=== PATIENT | male | born 1945 | race Caucasian/White ===

== ENCOUNTER → 2017-02-05 | Outpatient (CLI) | payer OTHER, MEDICARE ==
[2017-02-05 12:16] LABS: HEMATOCRIT 49.4 % (37.9-51.0); HEMOGLOBIN 17.6 g/dL (13.5-17.0); HGB HCT DIFFERENCE 3.4; MEAN CORPUSCULAR HEMOGLOBIN 35.1 pg (27.0-33.4); MEAN CORPUSCULAR HGB CONC 35.7 g/dL (32.0-36.0); MEAN CORPUSCULAR VOLUME 98 fl (80-97); RED BLOOD COUNT 5.02 10^6/uL (4.35-5.55); RED CELL DISTRIBUTION WIDTH 13.1 % (11.5-14.0); WHITE BLOOD COUNT 7.6 10^3/uL (4.0-10.5)
[2017-02-05 12:36] LABS: ERYTHROCYTE SEDIMENTATION RATE 4 mm/hr (0-20)
[2017-02-05 13:12] LABS: BAND NEUTROPHILS % (MANUAL) 3 % (3-5); BASOPHILS % (MANUAL) 0 % (0-2); EOSINOPHILS % (MANUAL) 0 % (0-6); LYMPHOCYTES % (MANUAL) 12 % (13-45); TOTAL CELLS COUNTED 100
[2017-02-05 13:17] LABS: PLATELET CLUMPS PRESENT
[2017-02-05 13:18] LABS: POLYCHROMASIA SLIGHT; TEAR DROP CELLS SLIGHT
[2017-02-05 13:19] LABS: POIKILOCYTOSIS SLIGHT; TOXIC VACUOLATION PRESENT
[2017-02-05 13:20] LABS: TARGET CELLS SLIGHT
== END ==
LOC: LAB 11:36
PROVIDERS: ATTEND Orthopaedic Surgery
DX: M25.512 Pain in left shoulder (principal); Z96.611 Presence of right artificial shoulder joint
CPT/HCPCS: 36415; 85025; 85652; 86140

== ENCOUNTER 2017-10-04 08:30 | Inpatient (IN) | payer OTHER, MEDICARE ==
[2017-10-04] MEDS ORDERED: ASPIRIN 81 MG TABLET, CHEWABLE PO ONE ×2 (08:40→19:00)
[2017-10-04] MEDS ORDERED: IPRATROPIUM/ALBUTEROL 0.5-2.5 MG/3 ML AMPUL NEB ONE (08:41)
[2017-10-04] MEDS ORDERED: MAGNESIUM SULFATE/D5W 1 GM/100 ML RTUPB IV ONE ×2 (08:42→08:57)
[2017-10-04] MEDS ORDERED: DILTIAZEM HCL INJ 25 MG/5 ML VIAL IV ONE ×3 (08:51→11:03)
[2017-10-04 08:56] LABS: ABSOLUTE EOSINOPHILS # (AUTO) 0.1 10^3/uL (0.0-0.6); ABSOLUTE LYMPHOCYTES (AUTO) 1.1 10^3/uL (0.5-4.7); ABSOLUTE MONOCYTES (AUTO) 1.4 10^3/uL (0.1-1.4); BASOPHILS % (AUTO) 0.5 % (0-2); EOSINOPHILS % (AUTO) 1.2 % (0-6); HEMATOCRIT 54.8 % (37.9-51.0); HEMOGLOBIN 19.1 g/dL (13.5-17.0); LYMPHOCYTES % (AUTO) 14.1 % (13-45); MEAN CORPUSCULAR HEMOGLOBIN 35.7 pg (27.0-33.4); MEAN CORPUSCULAR HGB CONC 34.9 g/dL (32.0-36.0); MEAN CORPUSCULAR VOLUME 102 fl (80-97); MONOCYTES % (AUTO) 18.5 % (3-13); PLATELET COUNT 207 10^3/uL (150-450); RED BLOOD COUNT 5.36 10^6/uL (4.35-5.55); RED CELL DISTRIBUTION WIDTH 13.8 % (11.5-14.0); SEGMENTED NEUTROPHILS % (AUTO) 65.7 % (42-78); TOTAL CELLS COUNTED % (AUTO) 100 %; WHITE BLOOD COUNT 7.7 10^3/uL (4.0-10.5)
[2017-10-04] MEDS ORDERED: ALBUTEROL SULFATE 0.083% NEB 2.5 MG/3 ML AMPUL NEB ONE (08:56)
[2017-10-04] MEDS ORDERED: METHYLPREDNISOLONE INJ 125 MG/2 ML SDV IV ONE (08:56)
--- NOTE | 2017-10-04 09:15 | RADIOLOGY REPORT (SQ) ---
EXAM DESCRIPTION: CHEST SINGLE VIEW COMPLETED DATE/TIME: 10/04/2017 8:51 am REASON FOR STUDY: sob COMPARISON: None. EXAM PARAMETERS: NUMBER OF VIEWS: One view. TECHNIQUE: Single frontal radiographic view of the chest acquired. RADIATION DOSE: NA LIMITATIONS: None. FINDINGS: LUNGS AND PLEURA: No opacities, masses or pneumothorax. No pleural effusion. MEDIASTINUM AND HILAR STRUCTURES: No masses. Contour normal. HEART AND VASCULAR STRUCTURES: Heart normal in size. Normal vasculature. BONES: No acute findings. HARDWARE: None in the chest. OTHER: No other significant finding. IMPRESSION: NO ACUTE RADIOGRAPHIC FINDING IN THE CHEST. TECHNICAL DOCUMENTATION: JOB ID: [id number] [employer]- All Rights Reserved Reading location - IP/workstation name: [email or web address]
[2017-10-04 09:17] LABS: ALANINE AMINOTRANSFERASE 28 U/L (21-72); ALBUMIN 4.9 g/dL (3.5-5.0); ALKALINE PHOSPHATASE 58 U/L (38-126); ANION GAP 15 (5-19); ASPARTATE AMINO TRANSFERASE 40 U/L (17-59); BILIRUBIN,DIRECT 0.5 mg/dL (0.0-0.4); BILIRUBIN,TOTAL 1.1 mg/dL (0.2-1.3); BLOOD UREA NITROGEN 28 mg/dL (7-20); CALCIUM 10.3 mg/dL (8.4-10.2); CARBON DIOXIDE 30 mmol/L (22-30); CHLORIDE 106 mmol/L (98-107); CREATINE KINASE 143 U/L (55-170); GLUCOSE 121 mg/dL (75-110); POTASSIUM 4.5 mmol/L (3.6-5.0); SODIUM 150.9 mmol/L (137-145); TOTAL PROTEIN 8.4 g/dL (6.3-8.2)
[2017-10-04 09:18] LABS: INTERNATIONAL RATION (INR) 0.93; PROTHROMBIN TIME 12.9 SEC (11.4-15.4)
[2017-10-04 09:18] LABS: VENOUS BLOOD BASE EXCESS -0.4 mmol/L; VENOUS BLOOD HCO3 26.9 mmol/L (20-32); VENOUS BLOOD PCO2 52.7 mmHg (35-63); VENOUS BLOOD PH 7.33 (7.30-7.42)
[2017-10-04 09:30] LABS: CREATINE KINASE MB 4.41 ng/mL (<4.55); TROPONIN I 0.022 ng/mL
[2017-10-04] MEDS ORDERED: NORMAL SALINE 1000 ML 1,000 ML IV ONE ×2 (09:32→11:04)
[2017-10-04] MEDS: DILTIAZEM HCL/D5W 125 MG/125 ML RTUINJ IV PRN ×3 (09:38→17:01)
[2017-10-04] MEDS ORDERED: DIGOXIN INJ 0.5 MG/2 ML AMPULE IV ONE (11:03)
[2017-10-04] MEDS: ENOXAPARIN SODIUM INJ 100 MG/1 ML DISP.SYRIN SUBCUT SCH (11:34)
[2017-10-04] MEDS ORDERED: ONDANSETRON HCL INJ/PF 4 MG/2 ML SDV IV PRN (12:56)
[2017-10-04] MEDS ORDERED: ACETAMINOPHEN 325 MG TABLET PO PRN (12:56)
[2017-10-04] MEDS: METHYLPREDNISOLONE INJ 40 MG/1 ML SDV IV SCH ×2 (13:55→22:33)
--- NOTE | 2017-10-04 14:21 | ER Document Report ---
ED General - General Chief Complaint: Breathing Difficulty Stated Complaint: BREATHING PROBLEMS Time Seen by Provider: 10/04/17 08:42 TRAVEL OUTSIDE OF THE [place] IN LAST 30 DAYS: No - HPI Patient complains to provider of: Difficulty breathing Notes: Patient coming in for evaluation difficulty breathing. Patient states he does have a history of COPD does continue to smoke. Patient upon being triage was found to have a heart rate in the 20s. Although I do believe this is anomalous is that we brought the patient back to the trauma bay place him on a monitor was found to be in A. fib with RVR with a heart rate greater than 130 fasting around 130-150. Patient denies any pain as approximately 2-3 word dyspnea therefore HPI is otherwise limited at this time. Patient does have a medication list showing metoprolol for blood control also multiple inhalers. Denies cough denies fever denies any sputum production. Denies nausea vomiting chest pain abdominal pain - Related Data Allergies/Adverse Reactions: No Known Allergies Allergy (Verified 10/04/17 08:31) Past Medical History - Social History Smoking Status: Former Smoker Chew tobacco use (# tins/day): No Frequency of alcohol use: Occasional Drug Abuse: None Family History: Reviewed & Not Pertinent Patient has suicidal ideation: No Patient has homicidal ideation: No - Past Medical History Cardiac Medical History: Reports: Hx Hypertension Pulmonary Medical History: Reports: Hx COPD Renal/ Medical History: Denies: Hx Peritoneal Dialysis Past Surgical History: Reports: Hx Orthopedic Surgery - bilateral hip. right shoulder Review of Systems - Review of Systems Constitutional: No symptoms reported EENT: No symptoms reported Cardiovascular: No symptoms reported Respiratory: Short of breath, Wheezing Gastrointestinal: No symptoms reported Genitourinary: No symptoms reported Male Genitourinary: No symptoms reported Musculoskeletal: No symptoms reported Skin: No symptoms reported Hematologic/Lymphatic: No symptoms reported Neurological/Psychological: No symptoms reported -: Yes All other systems reviewed and negative Physical Exam - Vital signs Vitals: Temp Pulse Resp BP Pulse Ox 98.1 F 29 L 32 H 163/112 H 92 10/04/17 08:35 10/04/17 08:35 10/04/17 08:35 10/04/17 08:35 10/04/17 08:35 Interpretation: Tachycardic, Tachypneic - General General appearance: Appears well, Alert - HEENT Head: Normocephalic, Atraumatic Eyes: Normal Pupils: PERRL - Respiratory Respiratory status: Tachypnea Chest status: Nontender Breath sounds: Rhonchi, Wheezing - Cardiovascular Rhythm: Irregularly irregular Heart sounds: Normal auscultation Murmur: No - Abdominal Inspection: Normal Distension: No distension Bowel sounds: Normal Tenderness: Nontender Organomegaly: No organomegaly - Back Back: Normal, Nontender - Extremities General upper extremity: Normal inspection, Nontender, Normal color, Normal ROM , Normal temperature General lower extremity: Normal inspection, Nontender, Normal color, Normal ROM , Normal temperature, Normal weight bearing. No: Tomas's sign - Neurological Neuro grossly intact: Yes Cognition: Normal Orientation: AAOx4 Vimal Coma Scale Eye Opening: Spontaneous Vimal Coma Scale Verbal: Oriented Vimal Coma Scale Motor: Obeys Commands [place] Coma Scale Total: 15 Speech: Normal Motor strength normal: LUE, RUE, LLE, RLE Sensory: Normal - Psychological Associated symptoms: Normal affect, Normal mood - Skin Skin Temperature: Warm Skin Moisture: Dry Skin Color: Normal Course - Re-evaluation Re-evalutation: 10/04/17 15:24 Patient coming in with difficulty in breathing coarse wheezes with no improvement after initial breathing treatment therefore was placed on BiPAP for his tachypnea after BiPAP and multiple rounds of nebs magnesium patient able to speak in full sentences continues to deny any chest pain denies any history of CHF. Heart rate was difficult to decrease as that we also given the patient albuterol treatments at the same time however placing the patient on Cardizem drip along with digoxin did help control his rate. Patient is also given a loading dose of Lovenox. No signs of infection at this time. Patient feeling much better after BiPAP. Patient case was discussed with the hospitalist service patient was admitted for further evaluation - Vital Signs Vital signs: Temp Pulse Resp BP Pulse Ox 98.1 F 29 L 21 H 143/81 H 98 10/04/17 08:36 10/04/17 08:36 10/04/17 14:05 10/04/17 14:05 10/04/17 14:05 - Laboratory Result Diagrams: 10/04/17 08:45 10/04/17 08:45 Laboratory results interpreted by me: 10/04/17 10/04/17 08:45 08:45 Hgb 19.1 H Hct 54.8 H MCV 102 H MCH 35.7 H Monocytes % 18.5 H Sodium 150.9 H BUN 28 H Glucose 121 H Calcium 10.3 H Direct Bilirubin 0.5 H Total Protein 8.4 H Critical Care Note - Critical Care Note Total time excluding time spent on procedures (mins): 35 Comments: Patient coming of her story failure requiring BiPAP also A. fib with RVR and time spent managing drips Discharge - Discharge Clinical Impression: Atrial fibrillation with RVR, COPD exacerbation, Respiratory distress Condition: Good Disposition: ADMITTED INPATIENT Admitting Provider: Hospitalist - wai/maninder Unit Admitted: [facility]
[2017-10-04] MEDS: IPRATROPIUM/ALBUTEROL 0.5-2.5 MG/3 ML AMPUL NEB SCH ×2 (14:30→20:04)
[2017-10-04] MEDS ORDERED: IPRATROPIUM BROMIDE 0.02% NEB 0.5 MG/2.5 ML AMPUL NEB PRN (16:49)
[2017-10-04] MEDS ORDERED: IPRATROPIUM/ALBUTEROL 0.5-2.5 MG/3 ML AMPUL NEB PRN (16:53)
--- NOTE | 2017-10-04 17:26 | PDOC H&P ---
History of Present Illness Admission Date/PCP: 10/04/17 14:54 Leonardo TROTTER MD Patient complains of: shortness of breath History of Present Illness: LUCIO DYER JR is a 72 year old male with increased shortness of breath since Wednesday. His past medical history is significant for underlying COPD. He has known hypertension and has an abdominal aortic aneurysm that is being followed as an outpatient. He has COPD for which he requires oxygen at night. He follows with pulmonology and [place]. The patient states that last Wednesday he felt like he was developing a sinus infection with significant sinus congestion and drainage. He later developed a cough. He was seen at a local urgent care and placed on a prednisone taper as well as a Z-Yoel. In spite of this he continued to worsen and his shortness of breath became so severe that he presented to the emergency room. In the emergency room he was found to be in atrial fibrillation with a rapid rate. He was referred for admission. Chest x-ray did not reveal an underlying pneumonia. He was found to have a sodium level of 150.9. Creatinine was normal. He has hypercalcemia as well as an elevated hemoglobin. Past Medical History Cardiac Medical History: Reports: Hypertension Denies: Atrial Fibrillation, Congestive Heart Failure, Coronary Artery Disease Pulmonary Medical History: Reports: Chronic Obstructive Pulmonary Disease (COPD) EENT Medical History: Reports: None Neurological Medical History: Reports: None Endocrine Medical History: Denies: Diabetes Mellitus Type 1 Renal/ Medical History: Denies: Chronic Kidney Disease Malignancy Medical History: Reports: None GI Medical History: Reports: None Musculoskeltal Medical History: Reports: None Skin Medical History: Reports: None Psychiatric Medical History: Denies: Alcohol Dependency, Substance Abuse Traumatic Medical History: Reports: None Hematology: Reports: None Infectious Medical History: Reports: None Past Surgical History Past Surgical History: Reports: Orthopedic Surgery - bilateral hip. right shoulder, Other - Penile implant Social History Information Source: Patient Lives with: Alone Smoking Status: Former Smoker Frequency of Alcohol Use: Rare Hx Recreational Drug Use: No Hx Prescription Drug Abuse: No - Advance Directive Resuscitation Status: Full Code Surrogate healthcare decision maker:: The patient's son is his surrogate decision maker Henrique Dyer Family History Family History: Reviewed & Not Pertinent Parental Family History Reviewed: Yes Children Family History Reviewed: Yes Sibling(s) Family History Reviewed.: Yes Medication/Allergy Home Medications: Albuterol Sulfate [Proventil Hfa] 2 puff IH Q6HP PRN 10/04/17 Albuterol Sulfate [Ventolin 0.083% Neb 2.5 mg/3 ml Ampul] 1 vial NEB RTQ6HP PRN 10/04/17 Aspirin [Aspirin 81 mg Chewable Tablet] 81 mg PO DAILY 10/04/17 Cholecalciferol (Vitamin D3) [Vitamin D3 1000 unit Chewable Tablet] 1,000 unit PO DAILY 10/04/17 Fluticasone Propionate [Flonase Nasal Allen 50 Mcg/Allen 16 gm] 1 spray NAREB Q12 10/04/17 Metoprolol Tartrate [Lopressor 50 mg Tablet] 50 mg PO DAILY 10/04/17 Mometasone Furoate [Nasonex] 2 sprays NAREB DAILY 10/04/17 Mometasone/Formoterol [Dulera 200 Mcg/5 Mcg Inhaler] 2 puff IH Q12 10/04/17 Tiotropium [place] [Spiriva Handihaler 5 Cap/Kit (18 Mcg/Cap)] 1 cap IH DAILY Zolpidem Tartrate [Ambien] 10 mg PO HSP PRN 10/04/17 Allergies/Adverse Reactions: No Known Allergies Allergy (Verified 10/04/17 08:31) Review of Systems Constitutional: PRESENT: as per HPI. ABSENT: fever(s), headache(s), night sweats, weight gain, weight loss Eyes: ABSENT: visual disturbances Ears: ABSENT: hearing changes Nose, Mouth, and Throat: ABSENT: headache(s), vertigo Cardiovascular: PRESENT: dyspnea on exertion, orthropnea, palpitations. ABSENT : chest pain Respiratory: PRESENT: cough, dyspnea. ABSENT: hemoptysis, sputum Gastrointestinal: ABSENT: abdominal pain, constipation, diarrhea, hematemesis, hematochezia, nausea, vomiting Genitourinary: PRESENT: as per HPI Musculoskeletal: ABSENT: joint swelling Integumentary: ABSENT: rash, wounds Neurological: ABSENT: abnormal gait, abnormal speech, confusion, dizziness, focal weakness, syncope Psychiatric: ABSENT: anxiety, depression, homidical ideation, suicidal ideation Endocrine: ABSENT: cold intolerance, heat intolerance, polydipsia, polyuria Hematologic/Lymphatic: ABSENT: easy bleeding, easy bruising Physical Exam Vital Signs: Temp Pulse Resp BP Pulse Ox 98.1 F 29 L 24 H 147/94 H 92 10/04/17 08:36 10/04/17 08:36 10/04/17 16:16 10/04/17 16:01 10/04/17 16:16 General appearance: PRESENT: well-developed, well-nourished, other - The patient is requiring BiPAP. He is in no acute distress Head exam: PRESENT: atraumatic, normocephalic Eye exam: PRESENT: conjunctiva pink, EOMI, PERRLA. ABSENT: scleral icterus Ear exam: PRESENT: normal external ear exam Mouth exam: PRESENT: dry mucosa, tongue midline Neck exam: ABSENT: carotid bruit, JVD, lymphadenopathy, thyromegaly Respiratory exam: PRESENT: other - He seems to be diminished in the lower bases. This was an anterior exam due to the fact that he is on BiPAP and not ideal. ABSENT: rales, rhonchi, wheezes Cardiovascular exam: PRESENT: irregular rhythm, tachycardia Pulses: PRESENT: normal dorsalis pedis pul GI/Abdominal exam: PRESENT: normal bowel sounds, soft. ABSENT: distended, guarding, mass, organolmegaly, rebound, tenderness Rectal exam: PRESENT: deferred Extremities exam: PRESENT: full ROM. ABSENT: calf tenderness, clubbing, pedal edema Musculoskeletal exam: PRESENT: ambulatory Neurological exam: PRESENT: alert, awake, oriented to person, oriented to place , oriented to time, oriented to situation, CN II-XII grossly intact. ABSENT: motor sensory deficit Psychiatric exam: PRESENT: appropriate affect, normal mood. ABSENT: homicidal ideation, suicidal ideation Skin exam: PRESENT: dry, intact, warm. ABSENT: cyanosis, rash Results Impressions: Chest X-Ray 10/04/17 08:40 IMPRESSION: NO ACUTE RADIOGRAPHIC FINDING IN THE CHEST. Assessment & Plan - Diagnosis (1) Acute and chronic respiratory failure Is this a current diagnosis for this admission?: Yes Plan: Currently the patient is requiring BiPAP. He has been borderline hypoxic and not breathing well with increased work of breathing. He will continue BiPAP support. He will have aggressive breathing treatments and therapy will be outlined below. (2) Atrial fibrillation with rapid ventricular response Is this a current diagnosis for this admission?: Yes Plan: He will remain on a Cardizem drip and this will be titrated. I am going to consult cardiology and we will obtain a 2D cardiac echo. This is a new problem for the patient. He has never had issues with atrial fibrillation in the past. He will be placed on full dose Lovenox for now. (3) COPD exacerbation Is this a current diagnosis for this admission?: Yes Plan: He has been started on IV Levaquin as well as IV Solu-Medrol. Continue aggressive breathing treatments. He will continue his home bronchodilators. (4) Dehydration Is this a current diagnosis for this admission?: Yes Plan: The patient received 2 L of fluid in the ER. I will continue gentle hydration overnight. We will recheck labs in the morning. (5) Hypernatremia Is this a current diagnosis for this admission?: Yes Plan: Possibly due to dehydration. He will have a chemistry panel in the morning. (6) Obstructive sleep apnea Is this a current diagnosis for this admission?: Yes Plan: He is on BiPAP at this point. We will continue this tonight as needed. (7) Hypercalcemia Is this a current diagnosis for this admission?: Yes Plan: Hopefully due to dehydration. He will have a level drawn in the morning. (8) Elevated serum protein level Is this a current diagnosis for this admission?: Yes Plan: Again hopefully due to dehydration. A level will be drawn in the morning. (9) Sinusitis Is this a current diagnosis for this admission?: Yes Plan: He has been partially treated as an outpatient. He was receiving Zithromax. I have changed him to IV Levaquin today. (10) Elevated hemoglobin Is this a current diagnosis for this admission?: Yes Plan: Possibly due to dehydration. We will check a level in the morning. (11) Full code status Is this a current diagnosis for this admission?: Yes - Time Time Spent: 50 to 70 Minutes - Inpatient Certification Medical Necessity: Need For IV Fluids - The patient will be fully admitted to the hospital. I expect his hospitalization to span greater than 2 midnights. He has new onset atrial fibrillation and needs cardiology evaluation. He also appears to be having a COPD exacerbation requiring parenteral steroids and antibiotics. Further workup is necessary and I suspect he will spend greater than 2 midnights in the hospital., Need for IV Antibiotics, Other
[2017-10-04] MEDS ORDERED: (PENDING PHARMACY ID) (Cholecalciferol (Vitamin D3) [Vitamin D3 1000 Unit Chewable Tablet] PO SCH (17:45)
[2017-10-04] MEDS ORDERED: DILTIAZEM HCL/D5W 125 MG/125 ML RTUINJ IV PRN (18:17)
--- NOTE | 2017-10-04 19:58 | EKG REPORT ---
SEVERITY:- ABNORMAL ECG - ATRIAL FIBRILLATION, V-RATE [id number] MULTIFORM VENTRICULAR PREMATURE COMPLEXES REPOL ABNRM SUGGESTS ISCHEMIA, DIFFUSE LEADS : Confirmed by: Renu Arevalo MD 04-Oct-2017 19:58:07
[2017-10-04] MEDS ORDERED: DILTIAZEM HCL 30 MG TABLET PO ONE (20:00)
--- NOTE | 2017-10-04 20:10 | PDOC CONSULTATION ---
Consultation Consult Date: 10/04/17 Attending physician:: VICKY CRUZ Consult reason:: Atrial fibrillation History of Present Illness Admission Date/PCP: 10/04/17 14:54 Leonardo TROTTER MD Patient complains of: Shortness of breath and palpitations History of Present Illness: LUCIO BACA JR is a 72 year old male presented to the emergency department with increased shortness of breath since Wednesday. His past medical history is significant for underlying COPD. He has known hypertension and has an abdominal aortic aneurysm that is being followed as an outpatient. He has COPD for which he requires oxygen at night. He follows with pulmonology and [place]. The patient states that last Wednesday he felt like he was developing a sinus infection with significant sinus congestion and drainage. He later developed a cough. He was seen at a local urgent care and placed on a prednisone taper as well as a Z-Yoel. In spite of this he continued to worsen and his shortness of breath became so severe that he presented to the emergency room. In the emergency room he was found to be in atrial fibrillation with a rapid rate. He was referred for admission. Chest x-ray did not reveal an underlying pneumonia. He was found to have a sodium level of 150.9. Creatinine was normal. He has hypercalcemia as well as an elevated hemoglobin. This history obtained by the hospitalist was reviewed and confirmed. Patient tells me that he used to follow-up with me at my previous practice has constant medical reception. He tells me that I started him on oxygen therapy and also CPAP therapy. Patient has continued with that and subsequently has been following up with the press smith helper in [place]. Patient was noted to be in atrial fibrillation with rapid ventricular response. He was placed on Cardizem drip and subsequently converted to sinus rhythm. Patient does give history of COPD. Patient however denied prior history of myocardial infarction, angina, CHF or prior atrial fibrillation. He also denied any history of strokes or mini strokes. Past Medical History Cardiac Medical History: Reports: Hypertension Denies: Atrial Fibrillation, Congestive Heart Failure, Coronary Artery Disease Pulmonary Medical History: Reports: Chronic Obstructive Pulmonary Disease (COPD) EENT Medical History: Reports: None Neurological Medical History: Reports: None Endocrine Medical History: Denies: Diabetes Mellitus Type 1 Renal/ Medical History: Denies: Chronic Kidney Disease Malignancy Medical History: Reports: None GI Medical History: Reports: None Musculoskeltal Medical History: Reports: None Skin Medical History: Reports: None Psychiatric Medical History: Denies: Alcohol Dependency, Substance Abuse Traumatic Medical History: Reports: None Hematology: Reports: None Infectious Medical History: Reports: None Past Surgical History Past Surgical History: Reports: Orthopedic Surgery - bilateral hip. right shoulder, Other - Penile implant Social History Information Source: Patient Lives with: Alone Smoking Status: Former Smoker Frequency of Alcohol Use: Rare Hx Recreational Drug Use: No Drugs: None Hx Prescription Drug Abuse: No - Advance Directive Resuscitation Status: Full Code Family History Family History: Hypertension Parental Family History Reviewed: Yes Children Family History Reviewed: Yes Sibling(s) Family History Reviewed.: Yes Medication/Allergy Home Medications: Albuterol Sulfate [Proventil Hfa] 2 puff IH Q6HP PRN 10/04/17 Albuterol Sulfate [Ventolin 0.083% Neb 2.5 mg/3 ml Ampul] 1 vial NEB RTQ6HP PRN 10/04/17 Aspirin [Aspirin 81 mg Chewable Tablet] 81 mg PO DAILY 10/04/17 Cholecalciferol (Vitamin D3) [Vitamin D3 1000 unit Chewable Tablet] 1,000 unit PO DAILY 10/04/17 Fluticasone Propionate [Flonase Nasal [place] 50 Mcg/[place] 16 gm] 1 spray NAREB Q12 10/04/17 Metoprolol Tartrate [Lopressor 50 mg Tablet] 50 mg PO DAILY 10/04/17 Mometasone Furoate [Nasonex] 2 sprays NAREB DAILY 10/04/17 Mometasone/Formoterol [Dulera 200 Mcg/5 Mcg Inhaler] 2 puff IH Q12 10/04/17 Tiotropium Raccoon [Spiriva Handihaler 5 Cap/Kit (18 Mcg/Cap)] 1 cap IH DAILY Zolpidem Tartrate [Ambien] 10 mg PO HSP PRN 10/04/17 Allergies/Adverse Reactions: No Known Allergies Allergy (Verified 10/04/17 08:31) Review of Systems Review of Systems: Please see history of present illness and past medical history as wall. Constitutional: No fever or chills reported. Head : No recent chronic headaches, recent head injury. Patient describes current sinus problems. Eyes: No recent eye pain, diplopia, redness, discharge, acute visual changes. Ears: No recent chronic ear pain, acute hearing loss, ear discharge. Oral cavity: No recent ulcerations, bleeding, oral cavity discomfort. Neck: No recent acute neck pain reported. Hematologic: No recent easy bruising or bleeding. Lymphatic: No recent lymph node enlargement reported. Cardiovascular system review: See history of present illness. Respiratory system review: No hemoptysis or blood clots in the lungs reported. Shortness of breath on exertion. Describes wheezing. Gastrointestinal system review: Negative for any recent acute hematemesis, melena. Genitourinary system review: No recent acute or chronic hematuria, flank pain, UTI etc. reported. Skin system review: Negative for any recent abnormal bruising, no rash, no pruritus reported. Neurologic: No prior history of strokes, mini strokes, seizure disorder. Psychologic: No history of major psychosis or major depression reported. Musculoskeletal: Minor aches and pains reported. No acute joint swelling reported. Endocrine: No recent polyuria, polydipsia, recent heat or cold intolerance. Physical Exam Vital Signs: Temp Pulse Resp BP Pulse Ox 97.3 F 105 H 26 H 166/79 H 96 10/04/17 17:41 10/04/17 17:41 10/04/17 17:41 10/04/17 17:41 10/04/17 17:41 Exam: GENERAL: well-nourished and in no acute distress. Alert and oriented x3 HEAD: Atraumatic, normocephalic. EYES: Pupils equal round and reactive to light, extraocular movements intact, sclera anicteric, conjunctiva are normal. ENT: TMs normal, nares patent, oropharynx clear without exudates. Moist mucous membranes. No oral ulcerations or bleeding gums noted NECK: supple without lymphadenopathy. Trachea is central. No cervical or axillary lymphadenopathy noted. Carotids are 2+, JVD borderline elevated at 8- 10 cm. LUNGS: Respiration seems nonlabored, no significant accessory muscle action noted. Bilateral diffuse wheezes rales or rhonchi noted. No significant dullness noted on percussion. CHEST: Palpation of the chest wall shows no significant chest wall tenderness. HEART: [place] [employer], No PSH, 1/6 AHSAN aortic area, 1/6 acharya systolic murmur mitral area, no rubs, no gallops. ABDOMEN: Soft, no significant tenderness appreciated, normoactive bowel sounds. No guarding, no rebound. No rigidity noted . No masses appreciated. EXTREMITIES: Pedal pulses are 1-2+, no calf tenderness noted. No clubbing or cyanosis. Trace pedal edema noted NEUROLOGICAL: Focused neurological exam showed no significant neurologic deficit. Normal speech, no focal weakness appreciated. PSYCH: Normal mood, normal affect. Judgment and insight within normal limits. SKIN: No significant ecchymosis, skin is noted to be warm. MUSCULOSKELETAL EXAM: No significant acute joint swelling noted. Results EKG Comments: Atrial fibrillation with minor nonspecific ST-T wave changes. Occasional VPCs are noted. Impressions: Chest X-Ray 10/04/17 08:40 IMPRESSION: NO ACUTE RADIOGRAPHIC FINDING IN THE CHEST. Assessment & Plan - Diagnosis (1) Atrial fibrillation with rapid ventricular response Is this a current diagnosis for this admission?: Yes (2) COPD exacerbation Is this a current diagnosis for this admission?: Yes (3) Obstructive sleep apnea Is this a current diagnosis for this admission?: Yes (4) Sinusitis Qualifiers: Sinusitis location: unspecified location Recurrence: not specified as recurrent Is this a current diagnosis for this admission?: Yes - Notes Notes: Atrial fibrillation with rapid ventricular response: Currently patient in sinus rhythm. Agree with Cardizem therapy. Patient has normal LVEF but has enlargement of the right ventricle on echocardiogram. There is increased chances of recurrence. Will therefore recommend chronic anticoagulation in this patient. COPD exacerbation: Recommend steroids and bronchodilator therapy as well as antibiotic therapy. Sleep apnea syndrome: Continue with bilevel therapy. Patient advised to bring his own CPAP machine. Sinusitis: Continue with antibiotic therapy. - Time Time Spent: 30 to 50 Minutes - CODE STATUS was discussed, patient remains full code. Multiple medical problems were addressed. More than 50% of the time spent coordinating care, discussing management plans with involved caregivers. Management plans discussed with involved personnels. Medical decision making was of moderate to high complexity, patient's has multiple comorbidities. Patient's son is the surrogate decision-maker Medications reviewed and adjusted accordingly: Yes
[2017-10-04 21:09] LABS: CREATINE KINASE MB 4.35 ng/mL (<4.55)
[2017-10-04 21:10] LABS: TROPONIN I < 0.012 ng/mL
[2017-10-04] MEDS ORDERED: (PENDING PHARMACY ID) (Mometasone/Formoterol [Dulera 200 Mcg/5 Mcg Inhaler] 2 PUFF) IH SCH (22:00)
[2017-10-04] MEDS: TIOTROPIUM BROMIDE DPI 5 CAP/KIT (18 MCG/CAP) IH SCH (22:34)
[2017-10-04] MEDS: TEMAZEPAM 7.5 MG CAPSULE PO SCH (22:35)
[2017-10-04] MEDS: FLUTICASONE NASAL SPRAY 50 MCG/SPRY 120 SPRAY/16 GM NAREB SCH (22:35)
[2017-10-05 00:39] LABS: APPEARANCE,URINE CLEAR; BILIRUBIN,URINE NEGATIVE (NEGATIVE); COLOR,URINE YELLOW; GLUCOSE, URINE >=500 mg/dL (NEGATIVE); KETONES,URINE TRACE mg/dL (NEGATIVE); LEUKOCYTE ESTERASE,URINE NEGATIVE (NEGATIVE); NITRITE,URINE NEGATIVE (NEGATIVE); PROTEIN,URINE 100 mg/dL (NEGATIVE); URINE SPECIFIC GRAVITY 1.024; UROBILINOGEN,URINE NEGATIVE mg/dL (<2.0)
[2017-10-05 03:25] LABS: CREATINE KINASE MB 4.26 ng/mL (<4.55)
[2017-10-05 03:26] LABS: TROPONIN I < 0.012 ng/mL
[2017-10-05] MEDS: DILTIAZEM HCL 30 MG TABLET PO SCH ×5 (06:15→23:41)
[2017-10-05] MEDS: LANSOPRAZOLE 30 MG TAB.RAP.DR PO SCH (06:15)
[2017-10-05] MEDS: METHYLPREDNISOLONE INJ 40 MG/1 ML SDV IV SCH ×3 (06:16→21:10)
[2017-10-05 08:31] LABS: ABSOLUTE LYMPHOCYTES (AUTO) 0.4 10^3/uL (0.5-4.7); ABSOLUTE MONOCYTES (AUTO) 0.4 10^3/uL (0.1-1.4); BASOPHILS % (AUTO) 0.5 % (0-2); HEMATOCRIT 49.8 % (37.9-51.0); HEMOGLOBIN 17.2 g/dL (13.5-17.0); LYMPHOCYTES % (AUTO) 5.7 % (13-45); MEAN CORPUSCULAR HEMOGLOBIN 35.1 pg (27.0-33.4); MEAN CORPUSCULAR HGB CONC 34.5 g/dL (32.0-36.0); MEAN CORPUSCULAR VOLUME 102 fl (80-97); PLATELET COUNT 189 10^3/uL (150-450); RED BLOOD COUNT 4.89 10^6/uL (4.35-5.55); SEGMENTED NEUTROPHILS % (AUTO) 88.8 % (42-78); TOTAL CELLS COUNTED % (AUTO) 100 %; WHITE BLOOD COUNT 7.9 10^3/uL (4.0-10.5)
[2017-10-05 08:50] LABS: ALANINE AMINOTRANSFERASE 31 U/L (21-72); ALBUMIN 4.2 g/dL (3.5-5.0); ALKALINE PHOSPHATASE 50 U/L (38-126); ANION GAP 12 (5-19); ASPARTATE AMINO TRANSFERASE 25 U/L (17-59); BILIRUBIN,DIRECT 0.4 mg/dL (0.0-0.4); BLOOD UREA NITROGEN 24 mg/dL (7-20); CALCIUM 9.8 mg/dL (8.4-10.2); CARBON DIOXIDE 27 mmol/L (22-30); CHLORIDE 107 mmol/L (98-107); CHOLESTEROL 173.51 mg/dL (0-200); GLUCOSE 158 mg/dL (75-110); PHOSPHORUS 3.7 mg/dL (2.5-4.5); POTASSIUM 4.4 mmol/L (3.6-5.0); SODIUM 145.8 mmol/L (137-145); TOTAL PROTEIN 6.7 g/dL (6.3-8.2); TRIGLYCERIDES 128 mg/dL (<150)
[2017-10-05] MEDS: IPRATROPIUM/ALBUTEROL 0.5-2.5 MG/3 ML AMPUL NEB SCH ×3 (08:56→20:15)
[2017-10-05 09:01] LABS: DIRECT LDL 101 mg/dL (<100)
[2017-10-05] MEDS: LEVOFLOXACIN 750 MG/D5W RTU 750 MG/150 ML RTUPB IV SCH (09:36)
[2017-10-05] MEDS: FLUTICASONE NASAL SPRAY 50 MCG/SPRY 120 SPRAY/16 GM NAREB SCH ×2 (09:36→21:11)
[2017-10-05] MEDS: METOPROLOL TARTRATE 50 MG TABLET PO SCH (09:37)
[2017-10-05] MEDS: CHOLECALCIFEROL (D3) 1,000 UNIT TABLET PO SCH (09:37)
[2017-10-05] MEDS: DOCUSATE SODIUM 100 MG CAPSULE PO SCH (09:37)
[2017-10-05] MEDS: ENOXAPARIN SODIUM INJ 100 MG/1 ML DISP.SYRIN SUBCUT SCH ×2 (09:38→21:10)
--- NOTE | 2017-10-05 09:54 | EKG REPORT ---
SEVERITY:- NORMAL ECG - SINUS RHYTHM : Confirmed by: Renu Arevalo MD 05-Oct-2017 09:53:48
[2017-10-05] MEDS ORDERED: ASPIRIN 81 MG TABLET, CHEWABLE PO SCH (18:00)
--- NOTE | 2017-10-05 19:35 | XCELERA REPORT ---
[address] [address] Transthoracic Echocardiogram Report Name: LUCIO BACA JR Age: 72 yrs Gender: Male : 1945 Patient Status: Inpatient Patient Location: [place] [address]^A Study Date: 10/04/2017 03:52 PM Height: 69 in Weight: 205 lb BSA: 2.1 m2 Procedure: A complete two-dimensional transthoracic echocardiogram was performed (2D, M-mode, spectral and color flow Doppler). The study was technically adequate with some images being suboptimal in quality. Reason For Study: Afib RVR Ordering Physician: POLO BAIRES Performed By: Corinne Hussein Interpretation Summary The left ventricular ejection fraction is normal. There is mild concentric left ventricular hypertrophy. The left ventricle is grossly normal size. Doppler measurements suggest pseudonormalized left ventricular relaxation, which is associated with grade II/IV or mild to moderate diastolic dysfunction Wall motion cannot be accurately commented on, but no definite regional wall motion abnormalities noted. The right ventricular systolic function is normal. The right ventricle is mildly dilated. The right atrium is normal in size The left atrial size is normal. There is a trace amount of mitral regurgitation There is no mitral valve stenosis. There is no aortic valve stenosis No aortic regurgitation is present. There is a trace or physiologic amount of tricuspid regurgitation Tricuspid regurgitation jet envelope not well defined to measure RV systolic pressure accurately. The aortic root is not well visualized but is probably normal size. The inferior vena cava was not well visualized Minimal pericardial effusion. MMode/2D Measurements & Calculations RVDd: 4.8 cm LVIDd: 4.4 cm FS: 37.5 % Ao root diam: 3.0 cm IVSd: 1.1 cm LVIDs: 2.8 cm EDV(Teich): 89.5 ml LVPWd: 1.0 cm ESV(Teich): 28.9 ml Ao root area: 7.1 cm2 EF(Teich): 67.7 % LA dimension: 3.5 cm Doppler Measurements & Calculations MV E max deon: MV P1/2t max deon: Ao V2 max: PA V2 max: 48.2 cm/sec 49.7 cm/sec 123.4 cm/sec 119.0 cm/sec MV A max deon: MV P1/2t: 46.4 msec Ao max PG: PA max P.4 cm/sec 6.1 mmHg 5.7 mmHg MV E/A: 1.0 MVA(P1/2t): 4.7 cm2 MV dec slope: 313.9 cm/sec2 MV dec time: 0.15 sec TR max deon: 308.1 cm/sec TR max P.0 mmHg Left Ventricle The left ventricle is grossly normal size. There is mild concentric left ventricular hypertrophy. The left ventricular ejection fraction is normal. Doppler measurements suggest pseudonormalized left ventricular relaxation, which is associated with grade II/IV or mild to moderate diastolic dysfunction. Wall motion cannot be accurately commented on, but no definite regional wall motion abnormalities noted. Right Ventricle The right ventricle is mildly dilated. There is normal right ventricular wall thickness. The right ventricular systolic function is normal. Atria The right atrium is normal in size. The left atrial size is normal. Interarterial septum not well visualized and not well dopplered. Cannot comment on ASD/PFO presence. Mitral Valve The mitral valve is grossly normal. There is no mitral valve stenosis. There is a trace amount of mitral regurgitation. Aortic Valve The aortic valve is not well visualized secondary to technical limitations. There is no aortic valve stenosis. No aortic regurgitation is present. Tricuspid Valve The tricuspid valve is not well visualized, but is grossly normal. There is no tricuspid stenosis. There is a trace or physiologic amount of tricuspid regurgitation. Tricuspid regurgitation jet envelope not well defined to measure RV systolic pressure accurately. Pulmonic Valve The pulmonic valve is not well visualized. Great Vessels The aortic root is not well visualized but is probably normal size. The inferior vena cava was not well visualized. Effusions Minimal pericardial effusion. : POLO BAIRES > Reba Da Silva
--- NOTE | 2017-10-05 19:42 | PDOC PROGRESS REPORT ---
Subjective Progress Note for:: 10/05/17 Subjective:: The patient is resting in his bed. He is in good spirits today. He still is requiring BiPAP as he is significantly short of breath but overall he is improving. I asked the patient today if he has difficulty swallowing his food at times and if he ever gets choked. He states that he thinks that he aspirates sometimes. Especially on things like chips and crackers. He also sometimes gets choked on thin liquids. He states this is been going on for quite some time and it is annoying. He is agreeable to have speech therapy evaluate him and I will order that today. We discussed broadening his antibiotic coverage as he is not much better from a respiratory standpoint and he is agreeable. He is back in a sinus rhythm and rate controlled. He denies fever chills. He is short of breath and feels better with his BiPAP on. He has had no nausea vomiting or diarrhea. No abdominal pain. No urinary complaints. Reason For Visit: AFIB RVR Physical Exam Vital Signs: Temp Pulse Resp BP Pulse Ox 97.5 F 87 27 H 120/75 95 10/05/17 15:44 10/05/17 15:44 10/05/17 16:00 10/05/17 15:44 10/05/17 15:44 Intake & Output 10/04/17 10/05/17 10/06/17 06:59 06:59 06:59 Intake Total 140 555 Output Total 550 450 Balance -410 105 Weight 92.1 kg General appearance: PRESENT: no acute distress, well-developed, well-nourished, other - He is wearing his BiPAP. Head exam: PRESENT: atraumatic, normocephalic Mouth exam: PRESENT: moist, tongue midline Respiratory exam: PRESENT: decreased breath sounds, rhonchi, wheezes Cardiovascular exam: PRESENT: RRR. ABSENT: diastolic murmur, rubs, systolic murmur GI/Abdominal exam: PRESENT: normal bowel sounds, soft. ABSENT: distended, guarding, mass, organolmegaly, rebound, tenderness Rectal exam: PRESENT: deferred Extremities exam: PRESENT: full ROM. ABSENT: calf tenderness, clubbing, pedal edema Musculoskeletal exam: PRESENT: ambulatory Neurological exam: PRESENT: alert, awake, oriented to person, oriented to place , oriented to time, oriented to situation, CN II-XII grossly intact. ABSENT: motor sensory deficit Psychiatric exam: PRESENT: appropriate affect, normal mood. ABSENT: homicidal ideation, suicidal ideation Skin exam: PRESENT: dry, intact, warm. ABSENT: cyanosis, rash Results Laboratory Results: 10/05/17 07:57 10/05/17 07:57 10/05/17 10/05/17 10/05/17 00:05 07:57 07:57 WBC 7.9 RBC 4.89 Hgb 17.2 H Hct 49.8 MCV 102 H MCH 35.1 H MCHC 34.5 RDW 14.0 Plt Count 189 Seg Neutrophils % 88.8 H Lymphocytes % 5.7 L Monocytes % 5.0 Eosinophils % 0.0 Basophils % 0.5 Absolute Neutrophils 7.0 Absolute Lymphocytes 0.4 L Absolute Monocytes 0.4 Absolute Eosinophils 0.0 Absolute Basophils 0.0 Sodium 145.8 H Potassium 4.4 Chloride 107 Carbon Dioxide 27 Anion Gap 12 BUN 24 H Creatinine 0.61 Est GFR ( Amer) > 60 Est GFR (Non-Af Amer) > 60 Glucose 158 H Calcium 9.8 Phosphorus 3.7 Magnesium 2.2 Total Bilirubin 1.0 AST 25 ALT 31 Alkaline Phosphatase 50 Total Protein 6.7 Albumin 4.2 Triglycerides 128 Cholesterol 173.51 LDL Cholesterol Direct 101 H VLDL Cholesterol 26.0 HDL Cholesterol 48 Urine Color YELLOW Urine Appearance CLEAR Urine pH 5.0 Ur Specific [place] 1.024 Urine Protein 100 H Urine Glucose (UA) >=500 H Urine Ketones TRACE H Urine Blood NEGATIVE Urine Nitrite NEGATIVE Ur Leukocyte Esterase NEGATIVE Urine WBC (Auto) 1 Urine RBC (Auto) 1 10/04/17 10/04/17 10/05/17 20:30 20:30 02:35 Creatine Kinase 125 112 CK-MB (CK-2) 4.35 Troponin I < 0.012 NT-Pro-B Natriuret Pep 10/05/17 10/05/17 02:35 07:57 Creatine Kinase CK-MB (CK-2) 4.26 Troponin I < 0.012 NT-Pro-B Natriuret Pep 348 Impressions: Chest X-Ray 10/04/17 08:40 IMPRESSION: NO ACUTE RADIOGRAPHIC FINDING IN THE CHEST. Assessment & Plan - Diagnosis (1) Acute and chronic respiratory failure Is this a current diagnosis for this admission?: Yes Plan: Currently the patient is still requiring BiPAP. He has been borderline hypoxic and not breathing well with increased work of breathing. He will continue BiPAP support. He will have aggressive breathing treatments and therapy will be outlined below. (2) Atrial fibrillation with rapid ventricular response Is this a current diagnosis for this admission?: Yes Plan: Resolved and stable on p.o. Cardizem. He was seen by cardiology and I appreciate their assistance (3) COPD exacerbation Is this a current diagnosis for this admission?: Yes Plan: He has been started on IV Levaquin as well as IV Solu-Medrol. I am going to add Zosyn to his regimen as well. Continue aggressive breathing treatments. He will continue his home bronchodilators. There are some concerns that the patient could be aspirating. I am going to get speech therapy to see the patient. (4) Dehydration Is this a current diagnosis for this admission?: Yes Plan: The patient received 2 L of fluid in the ER. IV fluids have been stopped (5) Hypernatremia Is this a current diagnosis for this admission?: Yes Plan: Possibly due to dehydration. He will have a chemistry panel in the morning. Improving (6) Obstructive sleep apnea Is this a current diagnosis for this admission?: Yes Plan: He is on BiPAP at this point. We will continue this tonight as needed. (7) Hypercalcemia Is this a current diagnosis for this admission?: Yes Plan: Likely secondary to dehydration. Resolved (8) Elevated serum protein level Is this a current diagnosis for this admission?: Yes Plan: Again likely secondary to dehydration. Resolved after receiving IV fluids (9) Sinusitis Qualifiers: Sinusitis location: unspecified location Recurrence: not specified as recurrent Is this a current diagnosis for this admission?: Yes Plan: He has been partially treated as an outpatient. He was receiving Zithromax. Continue Levaquin and Zosyn (10) Elevated hemoglobin Is this a current diagnosis for this admission?: Yes Plan: Somewhat improved but still on the high side. (11) Full code status Is this a current diagnosis for this admission?: Yes - Time Time Spent with patient: 25-34 minutes - Inpatient Certification Medical Necessity: Need for IV Antibiotics - Inpatient hospitalization remains necessary. The patient is still on BiPAP. He is requiring parenteral therapies. He may need pulmonology evaluation. Timing of disposition will be determined by his clinical course, Other
[2017-10-05] MEDS: TIOTROPIUM BROMIDE DPI 5 CAP/KIT (18 MCG/CAP) IH SCH (21:11)
[2017-10-05] MEDS: PIPERACILLIN SODIUM/TAZOBACTAM 3.375 GM in NORMAL SALINE 100 ML IV SCH (21:11)
[2017-10-05] MEDS: TEMAZEPAM 7.5 MG CAPSULE PO SCH (21:12)
[2017-10-06] MEDS: PIPERACILLIN SODIUM/TAZOBACTAM 3.375 GM in NORMAL SALINE 100 ML IV SCH ×4 (02:24→21:21)
[2017-10-06] MEDS: DILTIAZEM HCL 30 MG TABLET PO SCH ×3 (05:47→17:17)
[2017-10-06] MEDS: LANSOPRAZOLE 30 MG TAB.RAP.DR PO SCH (05:47)
[2017-10-06] MEDS: METHYLPREDNISOLONE INJ 40 MG/1 ML SDV IV SCH ×3 (05:47→21:20)
[2017-10-06 06:31] LABS: HEMATOCRIT 48.1 % (37.9-51.0); HEMOGLOBIN 16.6 g/dL (13.5-17.0); MEAN CORPUSCULAR HEMOGLOBIN 34.9 pg (27.0-33.4); MEAN CORPUSCULAR HGB CONC 34.5 g/dL (32.0-36.0); MEAN CORPUSCULAR VOLUME 101 fl (80-97); PLATELET COUNT 192 10^3/uL (150-450); RED BLOOD COUNT 4.75 10^6/uL (4.35-5.55); RED CELL DISTRIBUTION WIDTH 13.7 % (11.5-14.0); WHITE BLOOD COUNT 11.2 10^3/uL (4.0-10.5)
[2017-10-06 06:45] LABS: ALANINE AMINOTRANSFERASE 31 U/L (21-72); ALBUMIN 3.9 g/dL (3.5-5.0); ALKALINE PHOSPHATASE 44 U/L (38-126); ANION GAP 10 (5-19); ASPARTATE AMINO TRANSFERASE 23 U/L (17-59); BILIRUBIN,DIRECT 0.3 mg/dL (0.0-0.4); BILIRUBIN,TOTAL 0.8 mg/dL (0.2-1.3); BLOOD UREA NITROGEN 28 mg/dL (7-20); CALCIUM 9.7 mg/dL (8.4-10.2); CARBON DIOXIDE 28 mmol/L (22-30); CHLORIDE 106 mmol/L (98-107); GLUCOSE 162 mg/dL (75-110); POTASSIUM 4.3 mmol/L (3.6-5.0); SODIUM 144.3 mmol/L (137-145); TOTAL PROTEIN 6.5 g/dL (6.3-8.2)
[2017-10-06] MEDS: IPRATROPIUM/ALBUTEROL 0.5-2.5 MG/3 ML AMPUL NEB SCH ×3 (08:42→20:14)
[2017-10-06] MEDS: CHOLECALCIFEROL (D3) 1,000 UNIT TABLET PO SCH (09:05)
[2017-10-06] MEDS: DOCUSATE SODIUM 100 MG CAPSULE PO SCH (09:05)
[2017-10-06] MEDS: METOPROLOL TARTRATE 50 MG TABLET PO SCH (09:05)
[2017-10-06] MEDS: FLUTICASONE NASAL SPRAY 50 MCG/SPRY 120 SPRAY/16 GM NAREB SCH ×2 (09:06→21:20)
[2017-10-06] MEDS: ENOXAPARIN SODIUM INJ 100 MG/1 ML DISP.SYRIN SUBCUT SCH (09:06)
[2017-10-06] MEDS: LEVOFLOXACIN 750 MG/D5W RTU 750 MG/150 ML RTUPB IV SCH (10:31)
--- NOTE | 2017-10-06 11:15 | PDOC PROGRESS REPORT ---
Subjective Progress Note for:: 10/05/17 Subjective:: Patient was seen on morning rounds. Somehow the dictation got missed. Patient doing better. Is getting bronchodilator therapy. He is also on intermittent bilevel therapy. Currently patient using a nasal pillow. Patient still in mild respiratory distress with increased respiratory rate. 2D echocardiogram was performed and results were later on discussed with the patient Reason For Visit: AFIB RVR Physical Exam Vital Signs: Temp Pulse Resp BP Pulse Ox 97.7 F 90 18 143/78 H 92 10/06/17 07:48 10/06/17 08:42 10/06/17 08:42 10/06/17 07:48 10/06/17 08:42 Intake & Output 10/05/17 10/06/17 10/07/17 06:59 06:59 06:59 Intake Total 140 1397 Output Total 550 950 Balance -410 447 Weight 92.1 kg 92 kg Exam: GENERAL: well-nourished and in no acute distress. Alert and oriented x3 HEAD: Atraumatic, normocephalic. EYES: Pupils equal round and reactive to light, extraocular movements intact, sclera anicteric, conjunctiva are normal. ENT: TMs normal, nares patent, oropharynx clear without exudates. Moist mucous membranes. No oral ulcerations or bleeding gums noted NECK: supple without lymphadenopathy. Trachea is central. No cervical or axillary lymphadenopathy noted. Carotids are 2+, JVD WNL LUNGS: Respiration seems nonlabored, no significant accessory muscle action noted. Bilateral widespread wheezes rales or rhonchi noted. No significant dullness noted on percussion. CHEST: Palpation of the chest wall shows no significant chest wall tenderness. 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 ABDOMEN: Soft, no significant tenderness appreciated, normoactive bowel sounds. No guarding, no rebound. No rigidity noted . No masses appreciated. EXTREMITIES: Pedal pulses are 1-2+, no calf tenderness noted. No clubbing or cyanosis. negative pedal edema noted NEUROLOGICAL: Focused neurological exam showed no significant neurologic deficit. Normal speech, no focal weakness appreciated. PSYCH: Normal mood, normal affect. Judgment and insight within normal limits. SKIN: No significant ecchymosis, skin is noted to be warm. MUSCULOSKELETAL EXAM: No significant acute joint swelling noted. Results Laboratory Results: 10/06/17 05:47 10/06/17 05:47 10/06/17 10/06/17 05:47 05:47 WBC 11.2 H RBC 4.75 Hgb 16.6 Hct 48.1 MCV 101 H MCH 34.9 H MCHC 34.5 RDW 13.7 Plt Count 192 Sodium 144.3 Potassium 4.3 Chloride 106 Carbon Dioxide 28 Anion Gap 10 BUN 28 H Creatinine 0.67 Est GFR ( Amer) > 60 Est GFR (Non-Af Amer) > 60 Glucose 162 H Calcium 9.7 Phosphorus 4.0 Magnesium 2.2 Total Bilirubin 0.8 AST 23 ALT 31 Alkaline Phosphatase 44 Total Protein 6.5 Albumin 3.9 10/04/17 10/04/17 10/05/17 20:30 20:30 02:35 Creatine Kinase 125 112 CK-MB (CK-2) 4.35 Troponin I < 0.012 NT-Pro-B Natriuret Pep 10/05/17 10/05/17 10/06/17 02:35 07:57 05:47 Creatine Kinase CK-MB (CK-2) 4.26 Troponin I < 0.012 NT-Pro-B Natriuret Pep 348 535 EKG Comments: Telemetry shows sinus rhythm with APCs and VPCs. Impressions: Chest X-Ray 10/04/17 08:40 IMPRESSION: NO ACUTE RADIOGRAPHIC FINDING IN THE CHEST. Assessment & Plan - Diagnosis (1) COPD exacerbation Is this a current diagnosis for this admission?: Yes (2) Obstructive sleep apnea Is this a current diagnosis for this admission?: Yes (3) Sinusitis Qualifiers: Sinusitis location: unspecified location Recurrence: not specified as recurrent Is this a current diagnosis for this admission?: Yes (4) Paroxysmal atrial fibrillation Is this a current diagnosis for this admission?: Yes (5) Acute and chronic respiratory failure Qualifiers: Respiratory failure complication: hypoxia and hypercapnia Qualified Code(s) : J96.21 - Acute and chronic respiratory failure with hypoxia; J96.22 - Acute and chronic respiratory failure with hypercapnia; J96.22 - Acute and chronic respiratory failure with hypercapnia; J96.22 - Acute and chronic respiratory failure with hypercapnia Is this a current diagnosis for this admission?: Yes - Notes Notes: Twelve-lead EKG reviewed shows patient in sinus rhythm. 2D echocardiogram results were reviewed with the patient. 2D echocardiogram shows RV enlargement. Atrial fibrillation with RVR: Patient is now maintaining sinus rhythm having spontaneously converted to sinus. Believe that patient is at increased risk of recurrence of atrial fibrillation. At this point will recommend Eliquis therapy. If Eliquis is started recommend stopping Lovenox. COPD exacerbation: This is being expertly managed by the hospitalist. Continue with bronchodilator and steroid therapy. Obstructive sleep apnea syndrome: Patient claims compliance. Patient understands benefit of proper treatment of obstructive sleep apnea. Sinusitis: Continue with antibiotic therapy. - Time Time with patient: Greater than 35 minutes - Discussed 2D echocardiogram with the patient. Questions were answered. 2D echocardiogram shows increased RV enlargement. Telemetry strips reviewed. More than 50% of the time spent coordinating care, discussing management plans with involved caregivers. Management plans discussed with involved personnels. Medical decision making was of moderate to high complexity, patient's has multiple comorbidities.. Medications reviewed and adjusted accordingly: Yes
--- NOTE | 2017-10-06 11:23 | PDOC PROGRESS REPORT ---
Subjective Progress Note for:: 10/06/17 Subjective:: Patient was seen on morning rounds. Patient doing better. Is getting bronchodilator therapy. He is also on intermittent bilevel therapy. Patient still in mild respiratory distress with increased respiratory rate but overall significantly improved since admission. 2D echocardiogram was performed and results were later on discussed with the patient. These results were again reviewed with the patient. Also discussed need for chronic anticoagulation. Reason For Visit: AFIB RVR Physical Exam Vital Signs: Temp Pulse Resp BP Pulse Ox 97.7 F 90 18 143/78 H 92 10/06/17 07:48 10/06/17 08:42 10/06/17 08:42 10/06/17 07:48 10/06/17 08:42 Intake & Output 10/05/17 10/06/17 10/07/17 06:59 06:59 06:59 Intake Total 140 1397 Output Total 550 950 Balance -410 447 Weight 92.1 kg 92 kg Exam: GENERAL: well-nourished and in no acute distress. Alert and oriented x3 HEAD: Atraumatic, normocephalic. EYES: Pupils equal round and reactive to light, extraocular movements intact, sclera anicteric, conjunctiva are normal. ENT: TMs normal, nares patent, oropharynx clear without exudates. Moist mucous membranes. No oral ulcerations or bleeding gums noted NECK: supple without lymphadenopathy. Trachea is central. No cervical or axillary lymphadenopathy noted. Carotids are 2+, JVD WNL LUNGS: Respiration seems nonlabored, no significant accessory muscle action noted. Mild bilateral wheezes rales or rhonchi noted. No significant dullness noted on percussion. CHEST: Palpation of the chest wall shows no significant chest wall tenderness. 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 ABDOMEN: Soft, no significant tenderness appreciated, normoactive bowel sounds. No guarding, no rebound. No rigidity noted . No masses appreciated. EXTREMITIES: Pedal pulses are 1-2+, no calf tenderness noted. No clubbing or cyanosis. negative pedal edema noted NEUROLOGICAL: Focused neurological exam showed no significant neurologic deficit. Normal speech, no focal weakness appreciated. PSYCH: Normal mood, normal affect. Judgment and insight within normal limits. SKIN: No significant ecchymosis, skin is noted to be warm. MUSCULOSKELETAL EXAM: No significant acute joint swelling noted. Results Laboratory Results: 10/06/17 05:47 10/06/17 05:47 10/06/17 10/06/17 05:47 05:47 WBC 11.2 H RBC 4.75 Hgb 16.6 Hct 48.1 MCV 101 H MCH 34.9 H MCHC 34.5 RDW 13.7 Plt Count 192 Sodium 144.3 Potassium 4.3 Chloride 106 Carbon Dioxide 28 Anion Gap 10 BUN 28 H Creatinine 0.67 Est GFR ( Amer) > 60 Est GFR (Non-Af Amer) > 60 Glucose 162 H Calcium 9.7 Phosphorus 4.0 Magnesium 2.2 Total Bilirubin 0.8 AST 23 ALT 31 Alkaline Phosphatase 44 Total Protein 6.5 Albumin 3.9 10/04/17 10/04/17 10/05/17 20:30 20:30 02:35 Creatine Kinase 125 112 CK-MB (CK-2) 4.35 Troponin I < 0.012 NT-Pro-B Natriuret Pep 10/05/17 10/05/17 10/06/17 02:35 07:57 05:47 Creatine Kinase CK-MB (CK-2) 4.26 Troponin I < 0.012 NT-Pro-B Natriuret Pep 348 535 EKG Comments: Sinus rhythm with occasional APCs and VPCs. Impressions: Chest X-Ray 10/04/17 08:40 IMPRESSION: NO ACUTE RADIOGRAPHIC FINDING IN THE CHEST. Assessment & Plan - Diagnosis (1) Atrial fibrillation with rapid ventricular response Is this a current diagnosis for this admission?: Yes (2) COPD exacerbation Is this a current diagnosis for this admission?: Yes (3) Obstructive sleep apnea Is this a current diagnosis for this admission?: Yes (4) Sinusitis Qualifiers: Sinusitis location: unspecified location Recurrence: not specified as recurrent Is this a current diagnosis for this admission?: Yes - Notes Notes: Have stopped Lovenox, placed patient on Eliquis. Have also stopped aspirin. Recommend switching to a longer acting calcium channel juan. Atrial fibrillation with RVR: Patient is now maintaining sinus rhythm having spontaneously converted to sinus. Believe that patient is at increased risk of recurrence of atrial fibrillation. At this point will recommend Eliquis therapy. COPD exacerbation: This is being expertly managed by the hospitalist. Continue with bronchodilator and steroid therapy. Obstructive sleep apnea syndrome: Patient claims compliance. Patient understands benefit of proper treatment of obstructive sleep apnea. Sinusitis: Continue with antibiotic therapy. - Time Time with patient: Greater than 35 minutes - CODE STATUS was discussed, patient remains full code. Surrogate decision-maker unchanged. Multiple medical problems were addressed. More than 50% of the time spent coordinating care, discussing management plans with involved caregivers. Management plans discussed with involved personnels. Medical decision making was of moderate to high complexity, patient's has multiple comorbidities. Medications reviewed and adjusted accordingly: Yes
--- NOTE | 2017-10-06 12:17 | PDOC PROGRESS REPORT ---
Subjective Progress Note for:: 10/06/17 Subjective:: The patient is resting in his bed. He is still requiring BiPAP support most of the day. He states he just gets extremely winded and short of breath whenever he takes it off. Overall his heart rate has stabilized. Dr. Da Silva his transitioned him to p.o. Cardizem and is recommending Eliquis therapy going forward. He believes he is at high risk of recurrence of his atrial fibrillation down the road. The patient is agreeable to all of this. Overall on the BiPAP he feels just fine. When the BiPAP is off he feels acutely short of breath like he cannot breathe. He has had no nausea or vomiting. He is tolerating his diet. No abdominal pain. No urinary complaints. Reason For Visit: AFIB RVR Physical Exam Vital Signs: Temp Pulse Resp BP Pulse Ox 98.6 F 73 21 H 125/82 97 10/06/17 11:45 10/06/17 11:45 10/06/17 11:45 10/06/17 11:45 10/06/17 11:45 Intake & Output 10/05/17 10/06/17 10/07/17 06:59 06:59 06:59 Intake Total 140 1397 Output Total 550 950 Balance -410 447 Weight 92.1 kg 92 kg Results Laboratory Results: 10/06/17 05:47 10/06/17 05:47 10/06/17 10/06/17 05:47 05:47 WBC 11.2 H RBC 4.75 Hgb 16.6 Hct 48.1 MCV 101 H MCH 34.9 H MCHC 34.5 RDW 13.7 Plt Count 192 Sodium 144.3 Potassium 4.3 Chloride 106 Carbon Dioxide 28 Anion Gap 10 BUN 28 H Creatinine 0.67 Est GFR ( Amer) > 60 Est GFR (Non-Af Amer) > 60 Glucose 162 H Calcium 9.7 Phosphorus 4.0 Magnesium 2.2 Total Bilirubin 0.8 AST 23 ALT 31 Alkaline Phosphatase 44 Total Protein 6.5 Albumin 3.9 10/04/17 10/04/17 10/05/17 20:30 20:30 02:35 Creatine Kinase 125 112 CK-MB (CK-2) 4.35 Troponin I < 0.012 NT-Pro-B Natriuret Pep 10/05/17 10/05/17 10/06/17 02:35 07:57 05:47 Creatine Kinase CK-MB (CK-2) 4.26 Troponin I < 0.012 NT-Pro-B Natriuret Pep 348 535 Impressions: Chest X-Ray 10/04/17 08:40 IMPRESSION: NO ACUTE RADIOGRAPHIC FINDING IN THE CHEST. Assessment & Plan - Diagnosis (1) Acute and chronic respiratory failure Is this a current diagnosis for this admission?: Yes (2) Atrial fibrillation with rapid ventricular response Is this a current diagnosis for this admission?: Yes (3) COPD exacerbation Is this a current diagnosis for this admission?: Yes (4) Dehydration Is this a current diagnosis for this admission?: Yes (5) Hypernatremia Is this a current diagnosis for this admission?: Yes (6) Obstructive sleep apnea Is this a current diagnosis for this admission?: Yes (7) Hypercalcemia Is this a current diagnosis for this admission?: Yes (8) Elevated serum protein level Is this a current diagnosis for this admission?: Yes (9) Sinusitis Qualifiers: Sinusitis location: unspecified location Recurrence: not specified as recurrent Is this a current diagnosis for this admission?: Yes (10) Elevated hemoglobin Is this a current diagnosis for this admission?: Yes (11) Full code status Is this a current diagnosis for this admission?: Yes
--- NOTE | 2017-10-06 14:55 | PDOC CONSULTATION ---
Consultation Consult Date: 10/06/17 Attending physician:: POLO BAIRES Consult reason:: dyspnea History of Present Illness Admission Date/PCP: 10/04/17 14:54 Leonardo TROTTER MD History of Present Illness: LUCIO BACA JR is a 72 year old male ,presented to the emergency room after 3 days of postnasal drip green phlegm temperatures in the 100s progressive dyspnea on exertion he was subsequently found to be hypoxic and admitted to the hospital he denies shortness of breath at rest prior to these incidents but admits to dyspnea on exertion sometimes with activities of daily living has occasional cough no hemoptysis PPD is negative dates unknown. He has no history of chronic lung disease as a child or as an adolescent. He admits to exposure large amounts of passive smoke as a child as well as an adult. He is self smoked 2 packs a 35 years but has been without cigarettes for the last 18 years he is unaware of any significant exposure to potential respiratory toxins. He has no pets and no recent travel. He denies angina-like chest pain sleeps on 1-2 pillows no PND no nocturnal cough and rare trace edema. As stated above he carries a diagnosis of obstructive sleep apnea and wears CPAP with oxygen nightly. Past Medical History Cardiac Medical History: Reports: Hypertension Denies: Atrial Fibrillation, Congestive Heart Failure, Coronary Artery Disease Pulmonary Medical History: Reports: Chronic Obstructive Pulmonary Disease (COPD) EENT Medical History: Denies: Cataracts, Ears Neurological Medical History: Denies: Migraine, Multiple Sclerosis Endocrine Medical History: Denies: Diabetes Mellitus Type 1, Hyperthyroidism, Hypothyroidism Renal/ Medical History: Denies: Chronic Kidney Disease, End Stage Renal Disease Malignancy Medical History: Reports: None GI Medical History: Denies: Crohn's Disease, Gastroesophageal Reflux Disease, Hepatitis, Peptic Ulcer Disease, Ulcerative Colitis Musculoskeltal Medical History: Reports: None Skin Medical History: Reports: None Psychiatric Medical History: Denies: Alcohol Dependency, Substance Abuse Traumatic Medical History: Denies: Pneumothorax, Traumatic Brain Injury Hematology: Reports: None Denies: Hemophilia, Sickle Cell Disease Infectious Medical History: Reports: None Denies: Clostridium Difficile, Hepatitis B, HIV Past Surgical History Past Surgical History: Reports: Orthopedic Surgery - bilateral hip. right shoulder, Other - Penile implant Social History Information Source: Patient, [facility] Records Lives with: Alone Smoking Status: Former Smoker Cigarettes Packs Per Day: 2 Number of Years Smokin Last Time Smoked: 13 Passive smoke exposure as: Both Frequency of Alcohol Use: Occasional Hx Recreational Drug Use: No Drugs: None Hx Prescription Drug Abuse: No Do you have pets?: No Have you had any respiratory illnesses as a child?: No Have you been exposed to any sick contacts recently?: No Have you had any recent respiratory illnesses?: No Have you travelled outside of [place] in the past 12 months?: No - Advance Directive Resuscitation Status: Full Code Family History Family History: Hypertension Parental Family History Reviewed: Yes Children Family History Reviewed: Yes Medication/Allergy Home Medications: Albuterol Sulfate [Proventil Hfa] 2 puff IH Q6HP PRN 10/04/17 Albuterol Sulfate [Ventolin 0.083% Neb 2.5 mg/3 ml Ampul] 1 vial NEB RTQ6HP PRN 10/04/17 Aspirin [Aspirin 81 mg Chewable Tablet] 81 mg PO DAILY 10/04/17 Cholecalciferol (Vitamin D3) [Vitamin D3 1000 unit Chewable Tablet] 1,000 unit PO DAILY 10/04/17 Fluticasone Propionate [Flonase Nasal [place] 50 Mcg/Can[place]ilon 16 gm] 1 spray NAREB Q12 10/04/17 Metoprolol Tartrate [Lopressor 50 mg Tablet] 50 mg PO DAILY 10/04/17 Mometasone Furoate [Nasonex] 2 sprays NAREB DAILY 10/04/17 Mometasone/Formoterol [Dulera 200 Mcg/5 Mcg Inhaler] 2 puff IH Q12 10/04/17 Tiotropium [place] [Spiriva Handihaler 5 Cap/Kit (18 Mcg/Cap)] 1 cap IH DAILY Zolpidem Tartrate [Ambien] 10 mg PO HSP PRN 10/04/17 Allergies/Adverse Reactions: No Known Allergies Allergy (Verified 10/04/17 08:31) Review of Systems Constitutional: PRESENT: fever(s). ABSENT: anorexia, headache(s), night sweats Eyes: ABSENT: visual disturbances Ears: ABSENT: hearing changes Nose, Mouth, and Throat: ABSENT: mouth pain, sore throat Cardiovascular: PRESENT: dyspnea on exertion. ABSENT: chest pain, edema, orthropnea, palpitations Gastrointestinal: ABSENT: abdominal pain, bloating, coffee ground emesis, dysphagia, hematemesis, hematochezia, melena Genitourinary: ABSENT: dysuria, hematuria, nocturia Musculoskeletal: ABSENT: joint swelling Integumentary: ABSENT: pruritus, rash Neurological: ABSENT: abnormal gait, abnormal movements, abnormal speech, confusion, focal weakness, frequent falls, lack of coordination, memory loss Psychiatric: ABSENT: hallucinations, homidical ideation, suicidal ideation Endocrine: ABSENT: cold intolerance, heat intolerance, polydipsia, polyuria Hematologic/Lymphatic: ABSENT: easy bruising, lymphadenopathy Allergic/Immunologic: ABSENT: seasonal rhinorrhea Physical Exam Vital Signs: Temp Pulse Resp BP Pulse Ox 98.6 F 73 21 H 125/82 97 10/06/17 11:45 10/06/17 11:45 10/06/17 11:45 10/06/17 11:45 10/06/17 11:45 Intake & Output 10/05/17 10/06/17 10/07/17 06:59 06:59 06:59 Intake Total 140 1397 355 Output Total 550 950 500 Balance -410 447 -145 Weight 92.1 kg 92 kg General appearance: PRESENT: no acute distress, cooperative, disheveled, obese Head exam: PRESENT: atraumatic, normocephalic Eye exam: PRESENT: conjunctiva pale, EOMI. ABSENT: nystagmus, periorbital swelling, scleral icterus Mouth exam: PRESENT: dry mucosa, neck supple, tongue midline Neck exam: ABSENT: carotid bruit, JVD, lymphadenopathy, thyromegaly, tracheal deviation, tracheostomy Respiratory exam: PRESENT: decreased breath sounds, prolonged expiratory phas, rales, rhonchi, wheezes. ABSENT: retraction, stridor Cardiovascular exam: PRESENT: RRR, +S1, +S2, tachycardia Pulses: PRESENT: normal radial pulses GI/Abdominal exam: PRESENT: hypoactive bowel sounds, soft Extremities exam: ABSENT: calf tenderness, clubbing, joint swelling Musculoskeletal exam: ABSENT: deformity, dislocation Neurological exam: PRESENT: alert, awake Psychiatric exam: PRESENT: normal mood Skin exam: PRESENT: dry, warm Results Laboratory Results: 10/06/17 05:47 10/06/17 05:47 10/06/17 10/06/17 05:47 05:47 WBC 11.2 H RBC 4.75 Hgb 16.6 Hct 48.1 MCV 101 H MCH 34.9 H MCHC 34.5 RDW 13.7 Plt Count 192 Sodium 144.3 Potassium 4.3 Chloride 106 Carbon Dioxide 28 Anion Gap 10 BUN 28 H Creatinine 0.67 Est GFR ( Amer) > 60 Est GFR (Non-Af Amer) > 60 Glucose 162 H Calcium 9.7 Phosphorus 4.0 Magnesium 2.2 Total Bilirubin 0.8 AST 23 ALT 31 Alkaline Phosphatase 44 Total Protein 6.5 Albumin 3.9 10/04/17 10/04/17 10/05/17 20:30 20:30 02:35 Creatine Kinase 125 112 CK-MB (CK-2) 4.35 Troponin I < 0.012 NT-Pro-B Natriuret Pep 10/05/17 10/05/17 10/06/17 02:35 07:57 05:47 Creatine Kinase CK-MB (CK-2) 4.26 Troponin I < 0.012 NT-Pro-B Natriuret Pep 348 535 Impressions: Chest X-Ray 10/04/17 08:40 IMPRESSION: NO ACUTE RADIOGRAPHIC FINDING IN THE CHEST. Assessment & Plan - Diagnosis (1) Acute and chronic respiratory failure Is this a current diagnosis for this admission?: Yes Plan: Supplemental oxygen plus noninvasive pressure ventilation plus laba plus long acting muscarinic agent plus inhaled corticosteroid (2) Atrial fibrillation with RVR Is this a current diagnosis for this admission?: Yes Plan: Stable at this time (3) Obstructive sleep apnea Is this a current diagnosis for this admission?: Yes Plan: May use CPAP from home (4) COPD exacerbation Is this a current diagnosis for this admission?: Yes Plan: Considering placing hole on Dulera as it is somewhat duplicated by the DuoNeb and methylprednisolone Generic Name Dose Route Start Last Admin Trade Name Freq PRN Reason Stop Dose Admin Fluticasone Propionate 1 spray 10/04/17 22:00 10/06/17 09:06 Flonase Nasal [place] 50 Mcg/[place] 16 Gm NAREB 11/03/17 21:59 1 spray Q12 [facility] Patient Own Medication 2 puff 10/04/17 22:00 Mometasone/Formoterol [Dulera 200 Mcg/5 Mcg Inhaler] IH 11/03/17 21:59 .Q12 NILS Methylprednisolone Sodium Succinate 40 mg 10/04/17 14:00 10/06/17 05:47 Solu-Medrol Inj/Pf 40 Mg/1 Ml Sdv IV 11/03/17 13:59 40 mg Q8 NILS Tiotropium [place] 1 cap 10/04/17 22:00 10/05/17 21:11 Spiriva Handihaler 5 Cap/Kit (18 Mcg/Cap) IH 11/03/17 21:59 1 cap QHS NILS Albuterol/Ipratropium 3 ml 10/04/17 14:00 10/06/17 08:42 Duoneb 3 Ml Ampul NEB 11/03/17 13:59 3 ml [id number] NILS Methylprednisolone Sodium Succinate 40 mg 10/04/17 14:00 10/06/17 13:36 Solu-Medrol Inj/Pf 40 Mg/1 Ml Sdv IV 11/03/17 13:59 40 mg Q8 NILS Albuterol/Ipratropium 3 ml 10/04/17 14:00 10/06/17 14:30 Duoneb 3 Ml Ampul NEB 11/03/17 13:59 3 ml [id number] NILS
[2017-10-06] MEDS: APIXABAN 5 MG TABLET PO SCH (17:17)
[2017-10-06] MEDS ORDERED: APIXABAN 2.5 MG TABLET PO SCH (18:00)
[2017-10-06] MEDS: TIOTROPIUM BROMIDE DPI 5 CAP/KIT (18 MCG/CAP) IH SCH (21:20)
[2017-10-06] MEDS: TEMAZEPAM 7.5 MG CAPSULE PO SCH (21:21)
[2017-10-07] MEDS: DILTIAZEM HCL 30 MG TABLET PO SCH ×5 (00:19→23:08)
[2017-10-07] MEDS: PIPERACILLIN SODIUM/TAZOBACTAM 3.375 GM in NORMAL SALINE 100 ML IV SCH ×4 (03:06→22:07)
[2017-10-07] MEDS: LANSOPRAZOLE 30 MG TAB.RAP.DR PO SCH (05:30)
[2017-10-07] MEDS: METHYLPREDNISOLONE INJ 40 MG/1 ML SDV IV SCH ×2 (05:30→13:50)
[2017-10-07 06:28] LABS: ALANINE AMINOTRANSFERASE 30 U/L (21-72); ALBUMIN 3.7 g/dL (3.5-5.0); ALKALINE PHOSPHATASE 40 U/L (38-126); ANION GAP 8 (5-19); ASPARTATE AMINO TRANSFERASE 31 U/L (17-59); BILIRUBIN,DIRECT 0.4 mg/dL (0.0-0.4); BILIRUBIN,TOTAL 0.8 mg/dL (0.2-1.3); BLOOD UREA NITROGEN 31 mg/dL (7-20); CALCIUM 9.4 mg/dL (8.4-10.2); CARBON DIOXIDE 32 mmol/L (22-30); CHLORIDE 104 mmol/L (98-107); GLUCOSE 173 mg/dL (75-110); PHOSPHORUS 3.9 mg/dL (2.5-4.5); POTASSIUM 4.4 mmol/L (3.6-5.0); SODIUM 143.8 mmol/L (137-145); TOTAL PROTEIN 6.4 g/dL (6.3-8.2)
[2017-10-07 06:52] LABS: HEMATOCRIT 47.3 % (37.9-51.0); HEMOGLOBIN 16.7 g/dL (13.5-17.0); MEAN CORPUSCULAR HEMOGLOBIN 35.8 pg (27.0-33.4); MEAN CORPUSCULAR HGB CONC 35.3 g/dL (32.0-36.0); MEAN CORPUSCULAR VOLUME 101 fl (80-97); PLATELET COUNT 187 10^3/uL (150-450); RED BLOOD COUNT 4.68 10^6/uL (4.35-5.55); RED CELL DISTRIBUTION WIDTH 13.8 % (11.5-14.0); WHITE BLOOD COUNT 10.2 10^3/uL (4.0-10.5)
[2017-10-07 06:55] LABS: ABSOLUTE LYMPHOCYTES# (MANUAL) 0.5 10^3/uL (0.5-4.7); ABSOLUTE MONOCYTES # (MANUAL) 0.8 10^3/uL (0.1-1.4); ABSOLUTE NEUTROPHILS# (MANUAL) 8.9 10^3/uL (1.7-8.2); BASOPHILS % (MANUAL) 0 % (0-2); EOSINOPHILS % (MANUAL) 0 % (0-6); LYMPHOCYTES % (MANUAL) 5 % (13-45); MONOCYTES % (MANUAL) 8 % (3-13); SEGMENTED NEUTROPHILS % (MAN) 87 % (42-78); TOTAL CELLS COUNTED 100
[2017-10-07 06:56] LABS: PLATELET COMMENT ADEQUATE; TOXIC GRANULATION SLIGHT
[2017-10-07 08:39] LABS: HEMOGLOBIN 17.5 g/dL (13.5-17.0); MEAN CORPUSCULAR HEMOGLOBIN 34.9 pg (27.0-33.4); MEAN CORPUSCULAR HGB CONC 34.3 g/dL (32.0-36.0); MEAN CORPUSCULAR VOLUME 102 fl (80-97); PLATELET COUNT 201 10^3/uL (150-450); RED BLOOD COUNT 5.01 10^6/uL (4.35-5.55); RED CELL DISTRIBUTION WIDTH 13.5 % (11.5-14.0); WHITE BLOOD COUNT 10.6 10^3/uL (4.0-10.5)
[2017-10-07] MEDS: IPRATROPIUM/ALBUTEROL 0.5-2.5 MG/3 ML AMPUL NEB SCH ×3 (08:41→20:04)
[2017-10-07] MEDS: APIXABAN 5 MG TABLET PO SCH ×2 (09:25→17:49)
[2017-10-07] MEDS: METOPROLOL TARTRATE 50 MG TABLET PO SCH (09:25)
[2017-10-07] MEDS: MULTIVITAMIN TABLET PO SCH (09:25)
[2017-10-07] MEDS: CHOLECALCIFEROL (D3) 1,000 UNIT TABLET PO SCH (09:25)
[2017-10-07] MEDS: DOCUSATE SODIUM 100 MG CAPSULE PO SCH (09:25)
[2017-10-07] MEDS: FLUTICASONE NASAL SPRAY 50 MCG/SPRY 120 SPRAY/16 GM NAREB SCH ×2 (09:26→22:08)
[2017-10-07 09:28] LABS: ARTERIAL BLOOD BASE EXCESS 2.8 mmol/L; ARTERIAL BLOOD FIO2 30%; ARTERIAL BLOOD H2CO3 1.54 mmol/L (1.05-1.35); ARTERIAL BLOOD HCO3 29.3 mmol/L (20-26); ARTERIAL BLOOD PCO2 51.2 mmHg (35-45); ARTERIAL BLOOD PH 7.38 (7.35-7.45); ARTERIAL BLOOD PO2 48.7 mmHg (80-100); ARTERIAL BLOOD TOTAL CO2 30.9 mmol/L (23-27)
[2017-10-07] MEDS: LEVOFLOXACIN 750 MG/D5W RTU 750 MG/150 ML RTUPB IV SCH (09:28)
--- NOTE | 2017-10-07 13:08 | PDOC PROGRESS REPORT ---
Subjective Progress Note for:: 10/07/17 Reason For Visit: AFIB RVR Physical Exam Vital Signs: Temp Pulse Resp BP Pulse Ox 97.9 F 77 20 133/78 H 96 10/07/17 07:08 10/07/17 07:08 10/07/17 07:08 10/07/17 07:08 10/07/17 07:08 Intake & Output 10/06/17 10/07/17 10/08/17 06:59 06:59 06:59 Intake Total 1397 1907 Output Total 950 1400 Balance 447 507 Weight 92 kg 92.9 kg Results Laboratory Results: 10/07/17 08:10 10/07/17 05:40 10/07/17 10/07/17 10/07/17 05:40 05:40 08:10 WBC 10.2 10.6 H RBC 4.68 5.01 Hgb 16.7 17.5 H Hct 47.3 51.0 MCV 101 H 102 H MCH 35.8 H 34.9 H MCHC 35.3 34.3 RDW 13.8 13.5 Plt Count 187 201 Seg Neutrophils % Not Reportable Lymphocytes % Not Reportable Monocytes % Not Reportable Eosinophils % Not Reportable Basophils % Not Reportable Absolute Neutrophils Not Reportable Absolute Lymphocytes Not Reportable Absolute Monocytes Not Reportable Absolute Eosinophils Not Reportable Absolute Basophils Not Reportable Sodium 143.8 Potassium 4.4 Chloride 104 Carbon Dioxide 32 H Anion Gap 8 BUN 31 H Creatinine 0.72 Est GFR ( Amer) > 60 Est GFR (Non-Af Amer) > 60 Glucose 173 H Calcium 9.4 Phosphorus 3.9 Magnesium 2.3 Total Bilirubin 0.8 AST 31 ALT 30 Alkaline Phosphatase 40 Total Protein 6.4 Albumin 3.7 10/04/17 10/04/17 10/05/17 20:30 20:30 02:35 Creatine Kinase 125 112 CK-MB (CK-2) 4.35 Troponin I < 0.012 NT-Pro-B Natriuret Pep 10/05/17 10/05/17 10/06/17 02:35 07:57 05:47 Creatine Kinase CK-MB (CK-2) 4.26 Troponin I < 0.012 NT-Pro-B Natriuret Pep 348 535 10/07/17 05:40 Creatine Kinase CK-MB (CK-2) Troponin I NT-Pro-B Natriuret Pep 402 Impressions: Chest X-Ray 10/04/17 08:40 IMPRESSION: NO ACUTE RADIOGRAPHIC FINDING IN THE CHEST. Assessment & Plan - Diagnosis (1) Acute and chronic respiratory failure Is this a current diagnosis for this admission?: Yes Plan: Supplemental oxygen plus noninvasive pressure ventilation plus laba plus long acting muscarinic agent plus inhaled corticosteroid (2) Atrial fibrillation with RVR Is this a current diagnosis for this admission?: Yes Plan: Stable at this time (3) Obstructive sleep apnea Is this a current diagnosis for this admission?: Yes Plan: May use CPAP from home (4) COPD exacerbation Is this a current diagnosis for this admission?: Yes (5) Erythrocytosis due to alveolar hypoventilation Is this a current diagnosis for this admission?: Yes Plan: Labs- All tests 24 hr 10/04/17 10/05/17 10/06/17 08:45 07:57 05:47 Hgb 19.1 H 17.2 H 16.6 10/07/17 10/07/17 05:40 08:10 Hgb 16.7 17.5 H
--- NOTE | 2017-10-07 16:36 | PDOC PROGRESS REPORT ---
Subjective Progress Note for:: 10/07/17 Subjective:: The patient still is on BiPAP. Dr. Garcia is following and I appreciate his assistance. Overall he is feeling well. He denies fever chills. No chest pain. No further heart palpitations. No nausea vomiting or diarrhea. No urinary complaints. Reason For Visit: AFIB RVR Physical Exam Vital Signs: Temp Pulse Resp BP Pulse Ox 97.9 F 77 20 122/69 97 10/07/17 11:06 10/07/17 14:08 10/07/17 14:08 10/07/17 11:06 10/07/17 14:08 Pulse Oximeter Continuous Start: 10/07/17 13: 06 Freq: RTQ4 Status: Active Document 10/07/17 14:08 HCR (Rec: 10/07/17 14:31 HCR [id number]) Pulse Oximetry Assessment Oxygen Saturation (92-100) 97 Oxygen Delivery Method Bi-pap Fraction of Inspired Oxygen (FIO2) 30 Equipment Usage Initial Set Up Continuous Pulse Oximeter 24 Hour Charge Charge Now Continuous SpO2 Machine # n2 Intake & Output 10/06/17 10/07/17 10/08/17 06:59 06:59 06:59 Intake Total 1397 1907 445 Output Total 950 1400 550 Balance 447 507 -105 Weight 92 kg 92.9 kg General appearance: PRESENT: no acute distress, well-developed, well-nourished Head exam: PRESENT: atraumatic, normocephalic Eye exam: PRESENT: conjunctiva pink, EOMI, PERRLA. ABSENT: scleral icterus Mouth exam: PRESENT: moist, tongue midline Respiratory exam: PRESENT: wheezes. ABSENT: rales, rhonchi Cardiovascular exam: PRESENT: RRR. ABSENT: diastolic murmur, rubs, systolic murmur GI/Abdominal exam: PRESENT: normal bowel sounds, soft. ABSENT: distended, guarding, mass, organolmegaly, rebound, tenderness Rectal exam: PRESENT: deferred Extremities exam: PRESENT: full ROM. ABSENT: calf tenderness, clubbing, pedal edema Neurological exam: PRESENT: alert, awake, oriented to person, oriented to place , oriented to time, oriented to situation, CN II-XII grossly intact. ABSENT: motor sensory deficit Psychiatric exam: PRESENT: appropriate affect, normal mood. ABSENT: homicidal ideation, suicidal ideation Skin exam: PRESENT: dry, intact, warm. ABSENT: cyanosis, rash Results Laboratory Results: 10/07/17 08:10 10/07/17 05:40 10/07/17 10/07/17 10/07/17 05:40 05:40 08:10 WBC 10.2 10.6 H RBC 4.68 5.01 Hgb 16.7 17.5 H Hct 47.3 51.0 MCV 101 H 102 H MCH 35.8 H 34.9 H MCHC 35.3 34.3 RDW 13.8 13.5 Plt Count 187 201 Seg Neutrophils % Not Reportable Lymphocytes % Not Reportable Monocytes % Not Reportable Eosinophils % Not Reportable Basophils % Not Reportable Absolute Neutrophils Not Reportable Absolute Lymphocytes Not Reportable Absolute Monocytes Not Reportable Absolute Eosinophils Not Reportable Absolute Basophils Not Reportable Carbonic Acid HCO3/H2CO3 Ratio ABG pH ABG pCO2 ABG pO2 ABG HCO3 ABG O2 Saturation ABG Base Excess FiO2 Sodium 143.8 Potassium 4.4 Chloride 104 Carbon Dioxide 32 H Anion Gap 8 BUN 31 H Creatinine 0.72 Est GFR ( Amer) > 60 Est GFR (Non-Af Amer) > 60 Glucose 173 H Calcium 9.4 Phosphorus 3.9 Magnesium 2.3 Total Bilirubin 0.8 AST 31 ALT 30 Alkaline Phosphatase 40 Total Protein 6.4 Albumin 3.7 10/07/17 09:15 WBC RBC Hgb Hct MCV MCH MCHC RDW Plt Count Seg Neutrophils % Lymphocytes % Monocytes % Eosinophils % Basophils % Absolute Neutrophils Absolute Lymphocytes Absolute Monocytes Absolute Eosinophils Absolute Basophils Carbonic Acid 1.54 H HCO3/H2CO3 Ratio 19:1 ABG pH 7.38 ABG pCO2 51.2 H ABG pO2 48.7 L ABG HCO3 29.3 H ABG O2 Saturation 83.0 L ABG Base Excess 2.8 FiO2 30% Sodium Potassium Chloride Carbon Dioxide Anion Gap BUN Creatinine Est GFR ( Amer) Est GFR (Non-Af Amer) Glucose Calcium Phosphorus Magnesium Total Bilirubin AST ALT Alkaline Phosphatase Total Protein Albumin 10/04/17 10/04/17 10/05/17 20:30 20:30 02:35 Creatine Kinase 125 112 CK-MB (CK-2) 4.35 Troponin I < 0.012 NT-Pro-B Natriuret Pep 10/05/17 10/05/17 10/06/17 02:35 07:57 05:47 Creatine Kinase CK-MB (CK-2) 4.26 Troponin I < 0.012 NT-Pro-B Natriuret Pep 348 535 10/07/17 05:40 Creatine Kinase CK-MB (CK-2) Troponin I NT-Pro-B Natriuret Pep 402 Impressions: Chest X-Ray 10/04/17 08:40 IMPRESSION: NO ACUTE RADIOGRAPHIC FINDING IN THE CHEST. Assessment & Plan - Diagnosis (1) Acute and chronic respiratory failure Is this a current diagnosis for this admission?: Yes Plan: Secondary to COPD exacerbation. The patient still has severe dyspnea and is spending most of the day on BiPAP. I appreciate the assistance of Dr. Garcia. (2) Atrial fibrillation with rapid ventricular response Is this a current diagnosis for this admission?: Yes Plan: Resolved and stable on p.o. Cardizem. He was seen by cardiology and I appreciate their assistance. He will continue Cardizem and he has been started on Eliquis. (3) COPD exacerbation Is this a current diagnosis for this admission?: Yes Plan: I am going to stop his IV Solu-Medrol and transition him to p.o. prednisone today. (4) Dehydration Is this a current diagnosis for this admission?: Yes Plan: Resolved. (5) Hypernatremia Is this a current diagnosis for this admission?: Yes Plan: Secondary to dehydration. Resolved (6) Obstructive sleep apnea Is this a current diagnosis for this admission?: Yes Plan: He is on BiPAP at this point. We will continue this tonight as needed. (7) Hypercalcemia Is this a current diagnosis for this admission?: Yes Plan: Likely secondary to dehydration. Resolved (8) Elevated serum protein level Is this a current diagnosis for this admission?: Yes Plan: Again likely secondary to dehydration. Resolved after receiving IV fluids (9) Sinusitis Qualifiers: Sinusitis location: unspecified location Recurrence: not specified as recurrent Is this a current diagnosis for this admission?: Yes Plan: He has been partially treated as an outpatient. He was receiving Zithromax. Continue Levaquin and Zosyn (10) Elevated hemoglobin Is this a current diagnosis for this admission?: Yes Plan: Somewhat improved but still on the high side. (11) Full code status Is this a current diagnosis for this admission?: Yes - Time Time Spent with patient: 15-24 minutes - Inpatient Certification Medical Necessity: Need for IV Antibiotics - Inpatient hospitalization remains necessary. Overall the patient is slowly improving but still requiring BiPAP support. He is requiring parenteral therapies. Timing of disposition will be determined by his clinical course, Other
[2017-10-07] MEDS ORDERED: PREDNISONE 20 MG TABLET PO ONE (17:00)
--- NOTE | 2017-10-07 20:20 | PDOC PROGRESS REPORT ---
Subjective Progress Note for:: 10/07/17 Subjective:: Patient was seen on morning rounds. Patient doing better. Is getting bronchodilator therapy. He is also on intermittent bilevel therapy. Patient still in mild respiratory distress with increased respiratory rate but overall significantly improved since admission. 2D echocardiogram was performed and results were later on discussed with the patient. These results were again reviewed with the patient. Also discussed need for chronic anticoagulation. Reason For Visit: AFIB RVR Physical Exam Vital Signs: Temp Pulse Resp BP Pulse Ox 98.4 F 76 20 122/71 97 10/07/17 15:33 10/07/17 15:33 10/07/17 16:30 10/07/17 15:33 10/07/17 16:30 Pulse Oximeter Continuous Start: 10/07/17 13: 06 Freq: RTQ4 Status: Active Document 10/07/17 16:30 HCR (Rec: 10/07/17 18:31 HCR [email or web address]) Pulse Oximetry Assessment Oxygen Saturation (92-100) 97 Oxygen Delivery Method Bi-pap Fraction of Inspired Oxygen (FIO2) 30 Equipment Usage Equipment in Use Continuous SpO2 Machine # 2 Intake & Output 10/06/17 10/07/17 10/08/17 06:59 06:59 06:59 Intake Total 1397 1907 1319 Output Total 950 1400 1250 Balance 447 507 69 Weight 92 kg 92.9 kg Exam: GENERAL: well-nourished and in no acute distress. Alert and oriented x3 HEAD: Atraumatic, normocephalic. EYES: Pupils equal round and reactive to light, extraocular movements intact, sclera anicteric, conjunctiva are normal. ENT: TMs normal, nares patent, oropharynx clear without exudates. Moist mucous membranes. No oral ulcerations or bleeding gums noted NECK: supple without lymphadenopathy. Trachea is central. No cervical or axillary lymphadenopathy noted. Carotids are 2+, JVD WNL LUNGS: Respiration seems nonlabored, no significant accessory muscle action noted. Few bibasilar crackles and few a scattered wheezes rales or rhonchi noted. No significant dullness noted on percussion. CHEST: Palpation of the chest wall shows no significant chest wall tenderness. HEART: [place] [employer], No PSH, 1/6 AHSAN aortic area, 1/6 acharya systolic murmur mitral area, no rubs, no gallops. ABDOMEN: Soft, no significant tenderness appreciated, normoactive bowel sounds. No guarding, no rebound. No rigidity noted . No masses appreciated. EXTREMITIES: Pedal pulses are 1-2+, no calf tenderness noted. No clubbing or cyanosis. negative pedal edema noted NEUROLOGICAL: Focused neurological exam showed no significant neurologic deficit. Normal speech, no focal weakness appreciated. PSYCH: Normal mood, normal affect. Judgment and insight within normal limits. SKIN: No significant ecchymosis, skin is noted to be warm. MUSCULOSKELETAL EXAM: No significant acute joint swelling noted. Results Laboratory Results: 10/07/17 08:10 10/07/17 05:40 10/07/17 10/07/17 10/07/17 05:40 05:40 08:10 WBC 10.2 10.6 H RBC 4.68 5.01 Hgb 16.7 17.5 H Hct 47.3 51.0 MCV 101 H 102 H MCH 35.8 H 34.9 H MCHC 35.3 34.3 RDW 13.8 13.5 Plt Count 187 201 Seg Neutrophils % Not Reportable Lymphocytes % Not Reportable Monocytes % Not Reportable Eosinophils % Not Reportable Basophils % Not Reportable Absolute Neutrophils Not Reportable Absolute Lymphocytes Not Reportable Absolute Monocytes Not Reportable Absolute Eosinophils Not Reportable Absolute Basophils Not Reportable Carbonic Acid HCO3/H2CO3 Ratio ABG pH ABG pCO2 ABG pO2 ABG HCO3 ABG O2 Saturation ABG Base Excess FiO2 Sodium 143.8 Potassium 4.4 Chloride 104 Carbon Dioxide 32 H Anion Gap 8 BUN 31 H Creatinine 0.72 Est GFR ( Amer) > 60 Est GFR (Non-Af Amer) > 60 Glucose 173 H Calcium 9.4 Phosphorus 3.9 Magnesium 2.3 Total Bilirubin 0.8 AST 31 ALT 30 Alkaline Phosphatase 40 Total Protein 6.4 Albumin 3.7 10/07/17 09:15 WBC RBC Hgb Hct MCV MCH MCHC RDW Plt Count Seg Neutrophils % Lymphocytes % Monocytes % Eosinophils % Basophils % Absolute Neutrophils Absolute Lymphocytes Absolute Monocytes Absolute Eosinophils Absolute Basophils Carbonic Acid 1.54 H HCO3/H2CO3 Ratio 19:1 ABG pH 7.38 ABG pCO2 51.2 H ABG pO2 48.7 L ABG HCO3 29.3 H ABG O2 Saturation 83.0 L ABG Base Excess 2.8 FiO2 30% Sodium Potassium Chloride Carbon Dioxide Anion Gap BUN Creatinine Est GFR ( Amer) Est GFR (Non-Af Amer) Glucose Calcium Phosphorus Magnesium Total Bilirubin AST ALT Alkaline Phosphatase Total Protein Albumin 10/04/17 10/04/17 10/05/17 20:30 20:30 02:35 Creatine Kinase 125 112 CK-MB (CK-2) 4.35 Troponin I < 0.012 NT-Pro-B Natriuret Pep 10/05/17 10/05/17 10/06/17 02:35 07:57 05:47 Creatine Kinase CK-MB (CK-2) 4.26 Troponin I < 0.012 NT-Pro-B Natriuret Pep 348 535 10/07/17 05:40 Creatine Kinase CK-MB (CK-2) Troponin I NT-Pro-B Natriuret Pep 402 EKG Comments: Telemetry shows sinus rhythm without any sustained tachycardia or bradycardia Impressions: Chest X-Ray 10/04/17 08:40 IMPRESSION: NO ACUTE RADIOGRAPHIC FINDING IN THE CHEST. Assessment & Plan - Diagnosis (1) Atrial fibrillation with rapid ventricular response Is this a current diagnosis for this admission?: Yes (2) COPD exacerbation Is this a current diagnosis for this admission?: Yes (3) Obstructive sleep apnea Is this a current diagnosis for this admission?: Yes (4) Sinusitis Qualifiers: Sinusitis location: unspecified location Recurrence: not specified as recurrent Is this a current diagnosis for this admission?: Yes (5) Acute and chronic respiratory failure Qualifiers: Respiratory failure complication: hypoxia and hypercapnia Qualified Code(s) : J96.21 - Acute and chronic respiratory failure with hypoxia; J96.22 - Acute and chronic respiratory failure with hypercapnia; J96.22 - Acute and chronic respiratory failure with hypercapnia; J96.22 - Acute and chronic respiratory failure with hypercapnia Is this a current diagnosis for this admission?: Yes (6) Paroxysmal atrial fibrillation Is this a current diagnosis for this admission?: Yes - Notes Notes: Atrial fibrillation with RVR: Patient is now maintaining sinus rhythm having spontaneously converted to sinus. Believe that patient is at increased risk of recurrence of atrial fibrillation. Patient tolerating Eliquis therapy. 2D echocardiogram results were reviewed. COPD exacerbation: This is being expertly managed by the hospitalist. Continue with bronchodilator and steroid therapy. Continue oxygen supplementation. This is coming under control. Obstructive sleep apnea syndrome: Patient claims compliance. Patient understands benefit of proper treatment of obstructive sleep apnea. Sinusitis: Continue with antibiotic therapy. - Time Time with patient: 15-25 minutes - CODE STATUS was discussed, patient remains full code. Surrogate decision-maker unchanged. Multiple medical problems were addressed. More than 50% of the time spent coordinating care, discussing management plans with involved caregivers. Management plans discussed with involved personnels. Medical decision making was of moderate to high complexity , patient's has multiple comorbidities. Medications reviewed and adjusted accordingly: Yes
[2017-10-07] MEDS: TEMAZEPAM 7.5 MG CAPSULE PO SCH (22:08)
[2017-10-07] MEDS: TIOTROPIUM BROMIDE DPI 5 CAP/KIT (18 MCG/CAP) IH SCH (22:08)
[2017-10-08] MEDS: PIPERACILLIN SODIUM/TAZOBACTAM 3.375 GM in NORMAL SALINE 100 ML IV SCH ×3 (03:33→15:09)
[2017-10-08 05:25] LABS: HEMATOCRIT 47.3 % (37.9-51.0); HEMOGLOBIN 16.6 g/dL (13.5-17.0); MEAN CORPUSCULAR HEMOGLOBIN 35.6 pg (27.0-33.4); MEAN CORPUSCULAR HGB CONC 35.1 g/dL (32.0-36.0); MEAN CORPUSCULAR VOLUME 101 fl (80-97); PLATELET COUNT 186 10^3/uL (150-450); RED BLOOD COUNT 4.67 10^6/uL (4.35-5.55); RED CELL DISTRIBUTION WIDTH 13.2 % (11.5-14.0); WHITE BLOOD COUNT 9.4 10^3/uL (4.0-10.5)
[2017-10-08 05:53] LABS: ANION GAP 8 (5-19); BLOOD UREA NITROGEN 27 mg/dL (7-20); CALCIUM 9.2 mg/dL (8.4-10.2); CARBON DIOXIDE 31 mmol/L (22-30); CHLORIDE 103 mmol/L (98-107); GLUCOSE 172 mg/dL (75-110); POTASSIUM 4.4 mmol/L (3.6-5.0); SODIUM 141.7 mmol/L (137-145)
[2017-10-08] MEDS: DILTIAZEM HCL 30 MG TABLET PO SCH ×4 (05:58→23:13)
[2017-10-08] MEDS: LANSOPRAZOLE 30 MG TAB.RAP.DR PO SCH (05:58)
[2017-10-08] MEDS: IPRATROPIUM/ALBUTEROL 0.5-2.5 MG/3 ML AMPUL NEB SCH ×3 (08:19→20:32)
[2017-10-08 09:14] LABS: APPEARANCE,URINE CLEAR; BILIRUBIN,URINE NEGATIVE (NEGATIVE); COLOR,URINE YELLOW; GLUCOSE, URINE 50 mg/dL (NEGATIVE); KETONES,URINE NEGATIVE (NEGATIVE); LEUKOCYTE ESTERASE,URINE NEGATIVE (NEGATIVE); NITRITE,URINE NEGATIVE (NEGATIVE); PROTEIN,URINE NEGATIVE (NEGATIVE); URINE SPECIFIC GRAVITY 1.024
[2017-10-08] MEDS: FLUTICASONE NASAL SPRAY 50 MCG/SPRY 120 SPRAY/16 GM NAREB SCH ×2 (10:01→23:10)
[2017-10-08] MEDS: METOPROLOL TARTRATE 50 MG TABLET PO SCH (10:02)
[2017-10-08] MEDS: PREDNISONE 20 MG TABLET PO SCH (10:02)
[2017-10-08] MEDS: DOCUSATE SODIUM 100 MG CAPSULE PO SCH (10:02)
[2017-10-08] MEDS: CHOLECALCIFEROL (D3) 1,000 UNIT TABLET PO SCH (10:03)
[2017-10-08] MEDS: APIXABAN 5 MG TABLET PO SCH ×2 (10:03→17:25)
[2017-10-08] MEDS: MULTIVITAMIN TABLET PO SCH (10:03)
--- NOTE | 2017-10-08 10:45 | PDOC PROGRESS REPORT ---
Subjective Progress Note for:: 10/08/17 Subjective:: Awake alert without complaint Reason For Visit: AFIB RVR Physical Exam Vital Signs: Temp Pulse Resp BP Pulse Ox 97.5 F 89 27 H 148/77 H 100 10/08/17 08:29 10/08/17 08:29 10/08/17 08:29 10/08/17 08:29 10/08/17 08:29 Pulse Oximeter Continuous Start: 10/07/17 13: 06 Freq: RTQ4 Status: Active Document 10/08/17 08:22 J (Rec: 10/08/17 08:24 J [email or web address]) Pulse Oximetry Assessment Oxygen Saturation (92-100) 97 Oxygen Delivery Method Bi-pap Fraction of Inspired Oxygen (FIO2) 30 Equipment Usage Equipment in Use Continuous SpO2 Machine # 2 Intake & Output 10/07/17 10/08/17 10/09/17 06:59 06:59 06:59 Intake Total 1907 1819 Output Total 1400 2175 Balance 507 -356 Weight 92.9 kg 93.8 kg General appearance: PRESENT: no acute distress, cooperative, disheveled, obese Head exam: PRESENT: atraumatic, normocephalic Eye exam: PRESENT: conjunctiva pale, EOMI. ABSENT: nystagmus, periorbital swelling, scleral icterus Mouth exam: PRESENT: dry mucosa, neck supple, tongue midline Neck exam: ABSENT: carotid bruit, JVD, lymphadenopathy, thyromegaly, tracheal deviation, tracheostomy Respiratory exam: PRESENT: decreased breath sounds, prolonged expiratory phas, rales, rhonchi, unlabored, wheezes. ABSENT: retraction, stridor Cardiovascular exam: PRESENT: RRR, +S1, +S2. ABSENT: tachycardia Pulses: PRESENT: normal radial pulses GI/Abdominal exam: PRESENT: normal bowel sounds, soft Extremities exam: PRESENT: full ROM. ABSENT: calf tenderness, clubbing Musculoskeletal exam: PRESENT: full ROM. ABSENT: deformity, dislocation Neurological exam: PRESENT: alert, awake Psychiatric exam: PRESENT: normal mood Skin exam: PRESENT: dry, warm Results Laboratory Results: 10/08/17 04:48 10/08/17 04:48 10/07/17 10/08/17 10/08/17 09:15 04:48 04:48 WBC 9.4 RBC 4.67 Hgb 16.6 Hct 47.3 MCV 101 H MCH 35.6 H MCHC 35.1 RDW 13.2 Plt Count 186 Carbonic Acid 1.54 H HCO3/H2CO3 Ratio 19:1 ABG pH 7.38 ABG pCO2 51.2 H ABG pO2 48.7 L ABG HCO3 29.3 H ABG O2 Saturation 83.0 L ABG Base Excess 2.8 FiO2 30% Sodium 141.7 Potassium 4.4 Chloride 103 Carbon Dioxide 31 H Anion Gap 8 BUN 27 H Creatinine 0.70 Est GFR ( Amer) > 60 Est GFR (Non-Af Amer) > 60 Glucose 172 H Calcium 9.2 Magnesium 2.6 H Urine Color Urine Appearance Urine pH Ur Specific [place] Urine Protein Urine Glucose (UA) Urine Ketones Urine Blood Urine Nitrite Ur Leukocyte Esterase Urine WBC (Auto) Urine RBC (Auto) 10/08/17 08:22 WBC RBC Hgb Hct MCV MCH MCHC RDW Plt Count Carbonic Acid HCO3/H2CO3 Ratio ABG pH ABG pCO2 ABG pO2 ABG HCO3 ABG O2 Saturation ABG Base Excess FiO2 Sodium Potassium Chloride Carbon Dioxide Anion Gap BUN Creatinine Est GFR ( Amer) Est GFR (Non-Af Amer) Glucose Calcium Magnesium Urine Color YELLOW Urine Appearance CLEAR Urine pH 6.0 Ur Specific [place] 1.024 Urine Protein NEGATIVE Urine Glucose (UA) 50 H Urine Ketones NEGATIVE Urine Blood MODERATE H Urine Nitrite NEGATIVE Ur Leukocyte Esterase NEGATIVE Urine WBC (Auto) 3 Urine RBC (Auto) 41 10/04/17 10/04/17 10/05/17 20:30 20:30 02:35 Creatine Kinase 125 112 CK-MB (CK-2) 4.35 Troponin I < 0.012 NT-Pro-B Natriuret Pep 10/05/17 10/05/17 10/06/17 02:35 07:57 05:47 Creatine Kinase CK-MB (CK-2) 4.26 Troponin I < 0.012 NT-Pro-B Natriuret Pep 348 535 10/07/17 05:40 Creatine Kinase CK-MB (CK-2) Troponin I NT-Pro-B Natriuret Pep 402 Impressions: Chest X-Ray 10/04/17 08:40 IMPRESSION: NO ACUTE RADIOGRAPHIC FINDING IN THE CHEST. Assessment & Plan - Diagnosis (1) Acute and chronic respiratory failure Is this a current diagnosis for this admission?: Yes Plan: Improving (2) Atrial fibrillation with RVR Is this a current diagnosis for this admission?: Yes Plan: Stable at this time (3) Obstructive sleep apnea Is this a current diagnosis for this admission?: Yes Plan: May use CPAP from home (4) COPD exacerbation Is this a current diagnosis for this admission?: Yes Plan: Considering placing hole on Dulera as it is somewhat duplicated by the DuoNeb and methylprednisolone Generic Name Dose Route Start Last Admin Trade Name Freq PRN Reason Stop Dose Admin Fluticasone Propionate 1 spray 10/04/17 22:00 10/06/17 09:06 Flonase Nasal Simpson 50 Mcg/Simpson 16 Gm NAREB 11/03/17 21:59 1 spray Q12 NILS Patient Own Medication 2 puff 10/04/17 22:00 Mometasone/Formoterol [Dulera 200 Mcg/5 Mcg Inhaler] IH 11/03/17 21:59 .Q12 NILS Methylprednisolone Sodium Succinate 40 mg 10/04/17 14:00 10/06/17 05:47 Solu-Medrol Inj/Pf 40 Mg/1 Ml Sdv IV 11/03/17 13:59 40 mg Q8 NILS Tiotropium [place] 1 cap 10/04/17 22:00 10/05/17 21:11 Spiriva Handihaler 5 Cap/Kit (18 Mcg/Cap) IH 11/03/17 21:59 1 cap QHS NILS Albuterol/Ipratropium 3 ml 10/04/17 14:00 10/06/17 08:42 Duoneb 3 Ml Ampul NEB 11/03/17 13:59 3 ml [id number] [facility] Methylprednisolone Sodium Succinate 40 mg 10/04/17 14:00 10/06/17 13:36 Solu-Medrol Inj/Pf 40 Mg/1 Ml Sdv IV 11/03/17 13:59 40 mg Q8 NILS Albuterol/Ipratropium 3 ml 10/04/17 14:00 10/06/17 14:30 Duoneb 3 Ml Ampul NEB 11/03/17 13:59 3 ml [id number] NILS (5) Erythrocytosis due to alveolar hypoventilation Is this a current diagnosis for this admission?: Yes Plan: Labs- All tests 24 hr 10/04/17 10/05/17 10/06/17 08:45 07:57 05:47 Hgb 19.1 H 17.2 H 16.6 10/07/17 10/07/17 05:40 08:10 Hgb 16.7 17.5 H
[2017-10-08] MEDS: LEVOFLOXACIN 750 MG/D5W RTU 750 MG/150 ML RTUPB IV SCH (11:12)
--- NOTE | 2017-10-08 11:46 | PDOC PROGRESS REPORT ---
Subjective Progress Note for:: 10/08/17 Subjective:: Patient was seen on morning rounds. Patient doing better. Currently on positive pressure noninvasive ventilation using a nasal pillow. Breathing now is much more comfortable but he complains of shortness of breath on mild exertion 2D echocardiogram was performed and results were later on discussed with the patient. These results were again reviewed with the patient. Also discussed chronic anticoagulation. Reason For Visit: AFIB RVR Physical Exam Vital Signs: Temp Pulse Resp BP Pulse Ox 97.5 F 89 27 H 148/77 H 100 10/08/17 08:29 10/08/17 08:29 10/08/17 08:29 10/08/17 08:29 10/08/17 08:29 Pulse Oximeter Continuous Start: 10/07/17 13: 06 Freq: RTQ4 Status: Active Document 10/08/17 08:22 JDR (Rec: 10/08/17 08:24 JDR [email or web address]) Pulse Oximetry Assessment Oxygen Saturation (92-100) 97 Oxygen Delivery Method Bi-pap Fraction of Inspired Oxygen (FIO2) 30 Equipment Usage Equipment in Use Continuous SpO2 Machine # 2 Intake & Output 10/07/17 10/08/17 10/09/17 06:59 06:59 06:59 Intake Total 1907 1819 Output Total 1400 2175 Balance 507 -356 Weight 92.9 kg 93.8 kg Exam: GENERAL: well-nourished and in no acute distress. Alert and oriented x3 HEAD: Atraumatic, normocephalic. EYES: Pupils equal round and reactive to light, extraocular movements intact, sclera anicteric, conjunctiva are normal. ENT: TMs normal, nares patent, oropharynx clear without exudates. Moist mucous membranes. No oral ulcerations or bleeding gums noted NECK: supple without lymphadenopathy. Trachea is central. No cervical or axillary lymphadenopathy noted. Carotids are 2+, JVD WNL LUNGS: Respiration seems nonlabored, no significant accessory muscle action noted. Breath sounds clear to auscultation bilaterally and equal noted. Few a scattered wheezes rales or rhonchi noted. No significant dullness noted on percussion. CHEST: Palpation of the chest wall shows no significant chest wall tenderness. HEART: [facility] APPRAISER, No PSH, 1/6 AHSAN aortic area, 1/6 acharya systolic murmur mitral area, no rubs, no gallops. ABDOMEN: Soft, no significant tenderness appreciated, normoactive bowel sounds. No guarding, no rebound. No rigidity noted . No masses appreciated. EXTREMITIES: Pedal pulses are 1-2+, no calf tenderness noted. No clubbing or cyanosis. negative pedal edema noted NEUROLOGICAL: Focused neurological exam showed no significant neurologic deficit. Normal speech, no focal weakness appreciated. PSYCH: Normal mood, normal affect. Judgment and insight within normal limits. SKIN: No significant ecchymosis, skin is noted to be warm. MUSCULOSKELETAL EXAM: No significant acute joint swelling noted. Results Laboratory Results: 10/08/17 04:48 10/08/17 04:48 10/08/17 10/08/17 10/08/17 04:48 04:48 08:22 WBC 9.4 RBC 4.67 Hgb 16.6 Hct 47.3 MCV 101 H MCH 35.6 H MCHC 35.1 RDW 13.2 Plt Count 186 Sodium 141.7 Potassium 4.4 Chloride 103 Carbon Dioxide 31 H Anion Gap 8 BUN 27 H Creatinine 0.70 Est GFR ( Amer) > 60 Est GFR (Non-Af Amer) > 60 Glucose 172 H Calcium 9.2 Magnesium 2.6 H Urine Color YELLOW Urine Appearance CLEAR Urine pH 6.0 Ur Specific [place] 1.024 Urine Protein NEGATIVE Urine Glucose (UA) 50 H Urine Ketones NEGATIVE Urine Blood MODERATE H Urine Nitrite NEGATIVE Ur Leukocyte Esterase NEGATIVE Urine WBC (Auto) 3 Urine RBC (Auto) 41 10/04/17 10/04/17 10/05/17 20:30 20:30 02:35 Creatine Kinase 125 112 CK-MB (CK-2) 4.35 Troponin I < 0.012 NT-Pro-B Natriuret Pep 10/05/17 10/05/17 10/06/17 02:35 07:57 05:47 Creatine Kinase CK-MB (CK-2) 4.26 Troponin I < 0.012 NT-Pro-B Natriuret Pep 348 535 10/07/17 05:40 Creatine Kinase CK-MB (CK-2) Troponin I NT-Pro-B Natriuret Pep 402 EKG Comments: Telemetry strip shows sinus rhythm without any sustained tachycardia or bradycardia. Occasional APCs and VPCs are noted. Impressions: Chest X-Ray 10/04/17 08:40 IMPRESSION: NO ACUTE RADIOGRAPHIC FINDING IN THE CHEST. Assessment & Plan - Diagnosis (1) Atrial fibrillation with rapid ventricular response Is this a current diagnosis for this admission?: Yes (2) COPD exacerbation Is this a current diagnosis for this admission?: Yes (3) Obstructive sleep apnea Is this a current diagnosis for this admission?: Yes (4) Sinusitis Qualifiers: Sinusitis location: unspecified location Recurrence: not specified as recurrent Is this a current diagnosis for this admission?: Yes - Notes Notes: Patient used to follow-up with me in [place] and see therefore can follow-up in [place]. He is agreeable to doing that. Atrial fibrillation with RVR: Patient is now maintaining sinus rhythm having spontaneously converted to sinus. Patient noted to be in sinus rhythm for the last several days believe that patient is at increased risk of recurrence of atrial fibrillation. Patient tolerating Eliquis therapy. 2D echocardiogram results were again reviewed. COPD exacerbation: This is being expertly managed by the hospitalist. Continue with bronchodilator and steroid therapy. Continue oxygen supplementation. This is coming under control. Obstructive sleep apnea syndrome: Patient claims compliance. Patient understands benefit of proper treatment of obstructive sleep apnea. Sinusitis: Continue with antibiotic therapy. Patient has been stable from cardiac standpoint for last several days. Will therefore sign off. Please reconsult. - Time Time with patient: 15-25 minutes - CODE STATUS was discussed, patient remains full code. Surrogate decision-maker unchanged. Multiple medical problems were addressed. More than 50% of the time spent coordinating care, discussing management plans with involved caregivers. Management plans discussed with involved personnels. Medical decision making was of moderate to high complexity , patient's has multiple comorbidities. Medications reviewed and adjusted accordingly: Yes
[2017-10-08 11:59] LABS: ARTERIAL BLOOD BASE EXCESS 3.8 mmol/L; ARTERIAL BLOOD H2CO3 1.36 mmol/L (1.05-1.35); ARTERIAL BLOOD O2 SATURATION 96.7 % (94-98); ARTERIAL BLOOD PCO2 45.3 mmHg (35-45); ARTERIAL BLOOD PH 7.42 (7.35-7.45); ARTERIAL BLOOD PO2 86.8 mmHg (80-100); ARTERIAL BLOOD TOTAL CO2 30.4 mmol/L (23-27)
[2017-10-08 12:00] LABS: ARTERIAL BLOOD FIO2 30%
--- NOTE | 2017-10-08 18:29 | PDOC PROGRESS REPORT ---
Subjective Progress Note for:: 10/08/17 Subjective:: MOY BACA JR is a 72 year old male with increased shortness of breath since Wednesday. His past medical history is significant for underlying COPD. He has known hypertension and has an abdominal aortic aneurysm that is being followed as an outpatient. He has COPD for which he requires oxygen at night. He follows with pulmonology and [place]. The patient states that last Wednesday he felt like he was developing a sinus infection with significant sinus congestion and drainage. He later developed a cough. He was seen at a local urgent care and placed on a prednisone taper as well as a Z-Yoel. In spite of this he continued to worsen and his shortness of breath became so severe that he presented to the emergency room. In the emergency room he was found to be in atrial fibrillation with a rapid rate. He was also found to be having a COPD exacerbation. He was referred for admission. Chest x-ray did not reveal an underlying pneumonia. He was found to have a sodium level of 150.9. Creatinine was normal. He had hypercalcemia as well as an elevated hemoglobin. The patient has been stabilized on p.o. Cardizem and has been started on Eliquis by the cardiology service. At the time of admission he had to be placed on BiPAP and it has been difficult to wean him off of the BiPAP. He has been followed by pulmonology and they feel as if he is going to need trilogy. Today when I saw him this was the first day that he had been off of the BiPAP for any period of time. He is a little short of breath with some conversational dyspnea. Overall he states he is improving but does not want to leave the hospital until he is feeling little bit better than this. He denies fever or shaking chills. No chest pain. No further heart palpitations. No nausea vomiting or diarrhea. No dysuria, frequency or hematuria Reason For Visit: AFIB RVR Physical Exam Vital Signs: Temp Pulse Resp BP Pulse Ox 97.9 F 78 16 130/75 H 97 10/08/17 16:11 10/08/17 16:11 10/08/17 16:11 10/08/17 16:11 10/08/17 16:11 Pulse Oximeter Continuous Start: 10/07/17 13: 06 Freq: RTQ4 Status: Active Document 10/08/17 14:10 JDR (Rec: 10/08/17 14:11 [facility] [email or web address]) Pulse Oximetry Assessment Oxygen Saturation (92-100) 93 Oxygen Delivery Method Bi-pap Fraction of Inspired Oxygen (FIO2) 30 Equipment Usage Equipment in Use Continuous SpO2 Machine # 2 Intake & Output 10/07/17 10/08/17 10/09/17 06:59 06:59 06:59 Intake Total 1907 1819 350 Output Total 1400 2175 Balance 507 -356 350 Weight 92.9 kg 93.8 kg General appearance: PRESENT: no acute distress, well-developed, well-nourished, other - He is receiving oxygen via nasal cannula Head exam: PRESENT: atraumatic, normocephalic Eye exam: PRESENT: conjunctiva pink, EOMI, PERRLA. ABSENT: scleral icterus Ear exam: PRESENT: normal external ear exam Mouth exam: PRESENT: moist, tongue midline Neck exam: ABSENT: carotid bruit, JVD, lymphadenopathy, thyromegaly Respiratory exam: PRESENT: clear to auscultation henry. ABSENT: rales, rhonchi, wheezes Cardiovascular exam: PRESENT: RRR. ABSENT: diastolic murmur, rubs, systolic murmur GI/Abdominal exam: PRESENT: normal bowel sounds, soft. ABSENT: distended, guarding, mass, organolmegaly, rebound, tenderness Rectal exam: PRESENT: deferred Extremities exam: PRESENT: full ROM. ABSENT: calf tenderness, clubbing, pedal edema Musculoskeletal exam: PRESENT: ambulatory Neurological exam: PRESENT: alert, awake, oriented to person, oriented to place , oriented to time, oriented to situation, CN II-XII grossly intact. ABSENT: motor sensory deficit Psychiatric exam: PRESENT: appropriate affect, normal mood. ABSENT: homicidal ideation, suicidal ideation Skin exam: PRESENT: dry, intact, warm. ABSENT: cyanosis, rash Results Laboratory Results: 10/08/17 04:48 10/08/17 04:48 10/08/17 10/08/17 10/08/17 04:48 04:48 08:22 WBC 9.4 RBC 4.67 Hgb 16.6 Hct 47.3 MCV 101 H MCH 35.6 H MCHC 35.1 RDW 13.2 Plt Count 186 Carbonic Acid HCO3/H2CO3 Ratio ABG pH ABG pCO2 ABG pO2 ABG HCO3 ABG O2 Saturation ABG Base Excess FiO2 Sodium 141.7 Potassium 4.4 Chloride 103 Carbon Dioxide 31 H Anion Gap 8 BUN 27 H Creatinine 0.70 Est GFR ( Amer) > 60 Est GFR (Non-Af Amer) > 60 Glucose 172 H Calcium 9.2 Magnesium 2.6 H Urine Color YELLOW Urine Appearance CLEAR Urine pH 6.0 Ur Specific [place] 1.024 Urine Protein NEGATIVE Urine Glucose (UA) 50 H Urine Ketones NEGATIVE Urine Blood MODERATE H Urine Nitrite NEGATIVE Ur Leukocyte Esterase NEGATIVE Urine WBC (Auto) 3 Urine RBC (Auto) 41 10/08/17 11:45 WBC RBC Hgb Hct MCV MCH MCHC RDW Plt Count Carbonic Acid 1.36 H HCO3/H2CO3 Ratio 21:1 ABG pH 7.42 ABG pCO2 45.3 H ABG pO2 86.8 ABG HCO3 29.0 H ABG O2 Saturation 96.7 ABG Base Excess 3.8 FiO2 30% Sodium Potassium Chloride Carbon Dioxide Anion Gap BUN Creatinine Est GFR ( Amer) Est GFR (Non-Af Amer) Glucose Calcium Magnesium Urine Color Urine Appearance Urine pH Ur Specific [place] Urine Protein Urine Glucose (UA) Urine Ketones Urine Blood Urine Nitrite Ur Leukocyte Esterase Urine WBC (Auto) Urine RBC (Auto) 10/04/17 10/04/17 10/05/17 20:30 20:30 02:35 Creatine Kinase 125 112 CK-MB (CK-2) 4.35 Troponin I < 0.012 NT-Pro-B Natriuret Pep 10/05/17 10/05/17 10/06/17 02:35 07:57 05:47 Creatine Kinase CK-MB (CK-2) 4.26 Troponin I < 0.012 NT-Pro-B Natriuret Pep 348 535 10/07/17 05:40 Creatine Kinase CK-MB (CK-2) Troponin I NT-Pro-B Natriuret Pep 402 Impressions: Chest X-Ray 10/04/17 08:40 IMPRESSION: NO ACUTE RADIOGRAPHIC FINDING IN THE CHEST. Assessment & Plan - Diagnosis (1) Acute and chronic respiratory failure Is this a current diagnosis for this admission?: Yes Plan: Secondary to COPD exacerbation. The patient was on BiPAP all morning but this afternoon has been off of the BiPAP for about an hour. He has been transitioned to p.o. prednisone at this point. I appreciate the assistance of Dr. Garcia. (2) Atrial fibrillation with rapid ventricular response Is this a current diagnosis for this admission?: Yes Plan: Resolved and stable on p.o. Cardizem. He was seen by cardiology and I appreciate their assistance. He will continue Cardizem and he has been started on Eliquis. (3) COPD exacerbation Is this a current diagnosis for this admission?: Yes Plan: He has been transitioned to p.o. prednisone. We will continue current dosage of 60 mg a day. Continue aggressive breathing treatments and bronchodilators. (4) Dehydration Is this a current diagnosis for this admission?: Yes Plan: Resolved. (5) Hypernatremia Is this a current diagnosis for this admission?: Yes Plan: Secondary to dehydration. Resolved (6) Obstructive sleep apnea Is this a current diagnosis for this admission?: Yes Plan: He is on BiPAP at this point. We will continue this tonight as needed. Dr. Garcia is in the process of trying to get him a trilogy machine. (7) Hypercalcemia Is this a current diagnosis for this admission?: Yes Plan: Likely secondary to dehydration. Resolved (8) Elevated serum protein level Is this a current diagnosis for this admission?: Yes Plan: Again likely secondary to dehydration. Resolved after receiving IV fluids (9) Sinusitis Qualifiers: Sinusitis location: unspecified location Recurrence: not specified as recurrent Is this a current diagnosis for this admission?: Yes Plan: He has been partially treated as an outpatient. He was receiving Zithromax. Continue Levaquin. This is day number 5 of treatment. (10) Elevated hemoglobin Is this a current diagnosis for this admission?: Yes Plan: Somewhat improved but still on the high side. (11) Full code status Is this a current diagnosis for this admission?: Yes - Time Time Spent with patient: 15-24 minutes - Inpatient Certification Medical Necessity: Need For Continuous Telemetry Monitoring - Inpatient hospitalization remains necessary. The patient still is requiring frequent BiPAP support. Dr. Garcia is in the process of getting him a trilogy machine. Timing of disposition will be determined by his clinical course., Need for Nebulizer Therapy and Monitoring of Response, Need for IV Antibiotics, Other
[2017-10-08] MEDS: SODIUM CHLORIDE NASAL SPRAY 44 ML NASL PRN (19:21)
[2017-10-08] MEDS: TEMAZEPAM 7.5 MG CAPSULE PO SCH (23:11)
[2017-10-08] MEDS: TIOTROPIUM BROMIDE DPI 5 CAP/KIT (18 MCG/CAP) IH SCH (23:11)
[2017-10-09] MEDS: DILTIAZEM HCL 30 MG TABLET PO SCH ×3 (06:15→17:10)
[2017-10-09] MEDS: LANSOPRAZOLE 30 MG TAB.RAP.DR PO SCH (06:16)
[2017-10-09] MEDS: SODIUM CHLORIDE NASAL SPRAY 44 ML NASL PRN ×3 (06:19→22:03)
[2017-10-09] MEDS: IPRATROPIUM/ALBUTEROL 0.5-2.5 MG/3 ML AMPUL NEB SCH ×3 (08:36→20:57)
[2017-10-09] MEDS: PREDNISONE 20 MG TABLET PO SCH (09:19)
[2017-10-09] MEDS: APIXABAN 5 MG TABLET PO SCH ×2 (09:19→17:11)
[2017-10-09] MEDS: FLUTICASONE NASAL SPRAY 50 MCG/SPRY 120 SPRAY/16 GM NAREB SCH ×2 (09:20→22:04)
[2017-10-09] MEDS: METOPROLOL TARTRATE 50 MG TABLET PO SCH (09:20)
[2017-10-09] MEDS: DOCUSATE SODIUM 100 MG CAPSULE PO SCH (09:20)
[2017-10-09] MEDS: CHOLECALCIFEROL (D3) 1,000 UNIT TABLET PO SCH (09:20)
[2017-10-09] MEDS: MULTIVITAMIN TABLET PO SCH (09:20)
[2017-10-09] MEDS: LEVOFLOXACIN 750 MG/D5W RTU 750 MG/150 ML RTUPB IV SCH (09:21)
--- NOTE | 2017-10-09 10:47 | PDOC PROGRESS REPORT ---
Subjective Progress Note for:: 10/09/17 Subjective:: Patient is seen resting in bedside chair. He is awake, alert and oriented 3. He is presently on nasal cannula at 3 L/min. He denies any chest pain, shortness of breath, dyspnea or palpitations at rest. He states his cough is becoming productive. Shortness of breath is improving when he ambulates. He is not back at his baseline however. He denies any nausea, vomiting or abdominal pain. He denies any significant arthralgias or myalgias. Remaining review of systems are negative. Reason For Visit: AFIB RVR Physical Exam Vital Signs: Temp Pulse Resp BP Pulse Ox 97.9 F 89 18 126/84 H 93 10/09/17 07:35 10/09/17 08:38 10/09/17 08:38 10/09/17 07:35 10/09/17 08:38 Pulse Oximeter Continuous Start: 10/07/17 13: 06 Freq: RTQ4 Status: Active Document 10/09/17 08:38 JDR (Rec: 10/09/17 08:48 JDR [email or web address]) Pulse Oximetry Assessment Oxygen Saturation (92-100) 93 Oxygen Flow Rate (L/min) 2 Oxygen Delivery Method Nasal Cannula Fraction of Inspired Oxygen (FIO2) 28 Equipment Usage Equipment in Use Continuous SpO2 Machine # 2 Intake & Output 10/08/17 10/09/17 10/10/17 06:59 06:59 06:59 Intake Total 1819 1701 Output Total 2175 1175 Balance -356 526 Weight 93.8 kg 93.1 kg General appearance: PRESENT: no acute distress, well-developed, well-nourished Head exam: PRESENT: atraumatic, normocephalic Eye exam: PRESENT: conjunctiva pink, EOMI, PERRLA. ABSENT: scleral icterus Ear exam: PRESENT: normal external ear exam Mouth exam: PRESENT: moist, tongue midline Neck exam: ABSENT: carotid bruit, JVD, lymphadenopathy, thyromegaly Respiratory exam: PRESENT: rhonchi, symmetrical, unlabored Cardiovascular exam: PRESENT: RRR. ABSENT: diastolic murmur, rubs, systolic murmur Pulses: PRESENT: normal dorsalis pedis pul Vascular exam: PRESENT: normal capillary refill GI/Abdominal exam: PRESENT: normal bowel sounds, soft. ABSENT: distended, guarding, mass, organolmegaly, rebound, tenderness Rectal exam: PRESENT: deferred Extremities exam: PRESENT: full ROM. ABSENT: calf tenderness, clubbing, pedal edema Neurological exam: PRESENT: alert, awake, oriented to person, oriented to place , oriented to time, oriented to situation, CN II-XII grossly intact. ABSENT: motor sensory deficit Psychiatric exam: PRESENT: appropriate affect, normal mood. ABSENT: homicidal ideation, suicidal ideation Skin exam: PRESENT: dry, intact, warm. ABSENT: cyanosis, rash Results Laboratory Results: 10/08/17 04:48 10/08/17 04:48 10/08/17 10/09/17 11:45 08:10 Carbonic Acid 1.36 H HCO3/H2CO3 Ratio 21:1 ABG pH 7.42 ABG pCO2 45.3 H ABG pO2 86.8 ABG HCO3 29.0 H ABG O2 Saturation 96.7 ABG Base Excess 3.8 FiO2 30% Stool Occult Blood NEGATIVE 10/04/17 10/04/17 10/05/17 20:30 20:30 02:35 Creatine Kinase 125 112 CK-MB (CK-2) 4.35 Troponin I < 0.012 NT-Pro-B Natriuret Pep 10/05/17 10/05/17 10/06/17 02:35 07:57 05:47 Creatine Kinase CK-MB (CK-2) 4.26 Troponin I < 0.012 NT-Pro-B Natriuret Pep 348 535 10/07/17 05:40 Creatine Kinase CK-MB (CK-2) Troponin I NT-Pro-B Natriuret Pep 402 Impressions: Chest X-Ray 10/04/17 08:40 IMPRESSION: NO ACUTE RADIOGRAPHIC FINDING IN THE CHEST. Assessment & Plan - Diagnosis (1) Acute and chronic respiratory failure Qualifiers: Respiratory failure complication: hypoxia and hypercapnia Qualified Code(s) : J96.21 - Acute and chronic respiratory failure with hypoxia; J96.22 - Acute and chronic respiratory failure with hypercapnia; J96.22 - Acute and chronic respiratory failure with hypercapnia; J96.22 - Acute and chronic respiratory failure with hypercapnia Is this a current diagnosis for this admission?: Yes Plan: Improving. Still not back to baseline. He presently is requiring oxygen at 3 L continuously. Does not wear oxygen at home except at night with his CPAP. We will continue steroid taper and Levaquin. We can transition this to p.o. (2) Atrial fibrillation with RVR Is this a current diagnosis for this admission?: Yes Plan: Resolved with current treatment. He has had a history of paroxysmal A. fib. Cardiology is following (3) COPD exacerbation Is this a current diagnosis for this admission?: Yes Plan: As above in #1. (4) Dehydration Is this a current diagnosis for this admission?: Yes Plan: Resolved. 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
[2017-10-09] MEDS: TEMAZEPAM 7.5 MG CAPSULE PO SCH (22:04)
[2017-10-09] MEDS ORDERED: TIOTROPIUM BROMIDE DPI 5 CAP/KIT (18 MCG/CAP) IH ONE (22:16)
[2017-10-09] MEDS: TIOTROPIUM BROMIDE DPI 5 CAP/KIT (18 MCG/CAP) IH SCH (22:41)
[2017-10-10] MEDS: DILTIAZEM HCL 30 MG TABLET PO SCH ×4 (00:50→17:12)
[2017-10-10] MEDS: LANSOPRAZOLE 30 MG TAB.RAP.DR PO SCH (06:25)
[2017-10-10] MEDS: IPRATROPIUM/ALBUTEROL 0.5-2.5 MG/3 ML AMPUL NEB SCH ×3 (08:37→20:39)
[2017-10-10] MEDS: MULTIVITAMIN TABLET PO SCH (09:12)
[2017-10-10] MEDS: LEVOFLOXACIN 750 MG TABLET PO SCH (09:12)
[2017-10-10] MEDS: PREDNISONE 20 MG TABLET PO SCH ×2 (09:12→11:00)
[2017-10-10] MEDS: CHOLECALCIFEROL (D3) 1,000 UNIT TABLET PO SCH (09:13)
[2017-10-10] MEDS: DOCUSATE SODIUM 100 MG CAPSULE PO SCH (09:13)
[2017-10-10] MEDS: METOPROLOL TARTRATE 50 MG TABLET PO SCH (09:13)
[2017-10-10] MEDS: FLUTICASONE NASAL SPRAY 50 MCG/SPRY 120 SPRAY/16 GM NAREB SCH ×2 (09:14→22:29)
[2017-10-10] MEDS: APIXABAN 5 MG TABLET PO SCH ×2 (09:14→17:13)
--- NOTE | 2017-10-10 14:29 | PDOC PROGRESS REPORT ---
Subjective Progress Note for:: 10/10/17 Subjective:: Patient is seen resting in bedside chair. He is awake, alert and oriented 3. He is presently on nasal cannula at 1.5 L/min. He denies any chest pain, shortness of breath, dyspnea or palpitations at rest. He states his cough is becoming productive. Shortness of breath is improving when he ambulates. He is not back at his baseline however. He denies any nausea, vomiting or abdominal pain. He denies any significant arthralgias or myalgias. Remaining review of systems are negative. Reason For Visit: AFIB RVR Physical Exam Vital Signs: Temp Pulse Resp BP Pulse Ox 97.8 F 76 18 122/80 93 10/10/17 11:16 10/10/17 14:07 10/10/17 14:07 10/10/17 11:16 10/10/17 14:07 Pulse Oximeter Continuous Start: 10/07/17 13: 06 Freq: RTQ4 Status: Active Document 10/10/17 14:07 JDR (Rec: 10/10/17 14:18 JDR [email or web address]) Pulse Oximetry Assessment Oxygen Saturation (92-100) 92 Oxygen Flow Rate (L/min) 2 Oxygen Delivery Method Nasal Cannula Equipment Usage Equipment in Use Continuous Pulse Oximeter 24 Hour Charge Charge Now Continuous SpO2 Machine # 2 Intake & Output 10/09/17 10/10/17 10/11/17 06:59 06:59 06:59 Intake Total 1701 1472 655 Output Total 1175 1605 400 Balance 526 -133 255 Weight 93.1 kg 93.6 kg General appearance: PRESENT: no acute distress, well-developed, well-nourished Head exam: PRESENT: atraumatic, normocephalic Eye exam: PRESENT: conjunctiva pink, EOMI, PERRLA. ABSENT: scleral icterus Ear exam: PRESENT: normal external ear exam Mouth exam: PRESENT: moist, neck supple, tongue midline Neck exam: ABSENT: carotid bruit, JVD, lymphadenopathy, thyromegaly Respiratory exam: PRESENT: rhonchi - scattered bilaterally, symmetrical, unlabored Cardiovascular exam: PRESENT: RRR. ABSENT: diastolic murmur, rubs, systolic murmur Pulses: PRESENT: normal carotid pulses, normal radial pulses Vascular exam: PRESENT: normal capillary refill GI/Abdominal exam: PRESENT: normal bowel sounds, soft. ABSENT: distended, guarding, mass, organolmegaly, rebound, tenderness Extremities exam: PRESENT: full ROM. ABSENT: calf tenderness, clubbing, pedal edema Musculoskeletal exam: PRESENT: ambulatory, full ROM, normal inspection Neurological exam: PRESENT: alert, awake, oriented to person, oriented to place , oriented to time, oriented to situation, CN II-XII grossly intact. ABSENT: motor sensory deficit Psychiatric exam: PRESENT: appropriate affect, normal mood. ABSENT: homicidal ideation, suicidal ideation Skin exam: PRESENT: dry, intact, warm. ABSENT: cyanosis, rash Results Laboratory Results: 10/08/17 04:48 10/08/17 04:48 10/04/17 10/04/17 10/05/17 20:30 20:30 02:35 Creatine Kinase 125 112 CK-MB (CK-2) 4.35 Troponin I < 0.012 NT-Pro-B Natriuret Pep 10/05/17 10/05/17 10/06/17 02:35 07:57 05:47 Creatine Kinase CK-MB (CK-2) 4.26 Troponin I < 0.012 NT-Pro-B Natriuret Pep 348 535 10/07/17 05:40 Creatine Kinase CK-MB (CK-2) Troponin I NT-Pro-B Natriuret Pep 402 Impressions: Chest X-Ray 10/04/17 08:40 IMPRESSION: NO ACUTE RADIOGRAPHIC FINDING IN THE CHEST. Assessment & Plan - Diagnosis (1) Acute and chronic respiratory failure Qualifiers: Respiratory failure complication: hypoxia and hypercapnia Qualified Code(s) : J96.21 - Acute and chronic respiratory failure with hypoxia; J96.22 - Acute and chronic respiratory failure with hypercapnia; J96.22 - Acute and chronic respiratory failure with hypercapnia; J96.22 - Acute and chronic respiratory failure with hypercapnia Is this a current diagnosis for this admission?: Yes Plan: Improving. Still not back to baseline. He presently is requiring oxygen at 1.5 L continuously. BIPAP at Does not wear oxygen at home except at night with his CPAP. We will continue steroid taper and Levaquin. We can transition this to p.o. (2) Atrial fibrillation with RVR Is this a current diagnosis for this admission?: Yes Plan: Resolved with current treatment. He has had a history of paroxysmal A. fib. Cardiology is following (3) COPD exacerbation Is this a current diagnosis for this admission?: Yes Plan: As above in #1. (4) Dehydration Is this a current diagnosis for this admission?: Yes Plan: Resolved. 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
[2017-10-10] MEDS: TEMAZEPAM 7.5 MG CAPSULE PO SCH (22:29)
[2017-10-10] MEDS: TIOTROPIUM BROMIDE DPI 5 CAP/KIT (18 MCG/CAP) IH SCH (22:29)
[2017-10-10] MEDS: SODIUM CHLORIDE NASAL SPRAY 44 ML NASL PRN (22:30)
[2017-10-11] MEDS: DILTIAZEM HCL 30 MG TABLET PO SCH ×3 (03:31→12:44)
[2017-10-11] MEDS: LANSOPRAZOLE 30 MG TAB.RAP.DR PO SCH (06:07)
[2017-10-11] MEDS ORDERED: ONDANSETRON HCL INJ/PF 4 MG/2 ML SDV IV PRN (07:30)
[2017-10-11 07:35] LABS: HEMATOCRIT 51.5 % (37.9-51.0); HEMOGLOBIN 18.1 g/dL (13.5-17.0); MEAN CORPUSCULAR HEMOGLOBIN 35.3 pg (27.0-33.4); MEAN CORPUSCULAR VOLUME 101 fl (80-97); PLATELET COUNT 230 10^3/uL (150-450); RED BLOOD COUNT 5.11 10^6/uL (4.35-5.55); RED CELL DISTRIBUTION WIDTH 13.3 % (11.5-14.0); WHITE BLOOD COUNT 11.9 10^3/uL (4.0-10.5)
[2017-10-11 07:54] LABS: ANION GAP 10 (5-19); BLOOD UREA NITROGEN 23 mg/dL (7-20); CALCIUM 9.3 mg/dL (8.4-10.2); CARBON DIOXIDE 32 mmol/L (22-30); CHLORIDE 101 mmol/L (98-107); GLUCOSE 101 mg/dL (75-110); POTASSIUM 4.1 mmol/L (3.6-5.0); SODIUM 142.6 mmol/L (137-145)
[2017-10-11] MEDS: IPRATROPIUM/ALBUTEROL 0.5-2.5 MG/3 ML AMPUL NEB SCH ×2 (08:49→14:30)
[2017-10-11] MEDS: MULTIVITAMIN TABLET PO SCH (09:24)
[2017-10-11] MEDS: LEVOFLOXACIN 750 MG TABLET PO SCH (09:24)
[2017-10-11] MEDS: METOPROLOL TARTRATE 50 MG TABLET PO SCH (09:24)
[2017-10-11] MEDS: CHOLECALCIFEROL (D3) 1,000 UNIT TABLET PO SCH (09:25)
[2017-10-11] MEDS: DOCUSATE SODIUM 100 MG CAPSULE PO SCH (09:25)
[2017-10-11] MEDS: APIXABAN 5 MG TABLET PO SCH (09:25)
[2017-10-11] MEDS: PREDNISONE 20 MG TABLET PO SCH (09:25)
[2017-10-11] MEDS: FLUTICASONE NASAL SPRAY 50 MCG/SPRY 120 SPRAY/16 GM NAREB SCH (09:29)
--- NOTE | 2017-10-11 10:45 | PDOC PROGRESS REPORT ---
Subjective Progress Note for:: 10/11/17 Subjective:: Improved Reason For Visit: AFIB RVR Physical Exam Vital Signs: Temp Pulse Resp BP Pulse Ox 97.8 F 81 21 H 135/76 H 96 10/11/17 03:51 10/11/17 07:00 10/11/17 03:51 10/11/17 03:51 10/11/17 03:51 Pulse Oximeter Continuous Start: 10/07/17 13: 06 Freq: RTQ4 Status: Complete Document 10/10/17 14:07 JDR (Rec: 10/10/17 14:18 [email or web address]) Pulse Oximetry Assessment Oxygen Saturation (92-100) 92 Oxygen Flow Rate (L/min) 2 Oxygen Delivery Method Nasal Cannula Equipment Usage Equipment in Use Continuous Pulse Oximeter 24 Hour Charge Charge Now Continuous SpO2 Machine # 2 Intake & Output 10/10/17 10/11/17 10/12/17 06:59 06:59 06:59 Intake Total 1472 1527 Output Total 1605 1430 Balance -133 97 Weight 93.6 kg 92.8 kg General appearance: PRESENT: no acute distress, cooperative, disheveled, obese Head exam: PRESENT: atraumatic, normocephalic Eye exam: PRESENT: conjunctiva pale, EOMI. ABSENT: nystagmus, periorbital swelling, scleral icterus Mouth exam: PRESENT: dry mucosa, neck supple, tongue midline Neck exam: ABSENT: carotid bruit, JVD, lymphadenopathy, thyromegaly, tracheal deviation, tracheostomy Respiratory exam: PRESENT: decreased breath sounds, prolonged expiratory phas, rhonchi, unlabored. ABSENT: rales, retraction, stridor Cardiovascular exam: PRESENT: RRR, +S1, +S2 Pulses: PRESENT: normal radial pulses GI/Abdominal exam: PRESENT: normal bowel sounds, soft Extremities exam: PRESENT: full ROM. ABSENT: calf tenderness, clubbing, joint swelling Musculoskeletal exam: PRESENT: ambulatory, full ROM. ABSENT: deformity, dislocation Neurological exam: PRESENT: alert, awake Psychiatric exam: PRESENT: normal mood Skin exam: PRESENT: dry, warm Results Laboratory Results: 10/11/17 07:07 10/11/17 07:07 10/11/17 10/11/17 07:07 07:07 WBC 11.9 H RBC 5.11 Hgb 18.1 H Hct 51.5 H MCV 101 H MCH 35.3 H MCHC 35.0 RDW 13.3 Plt Count 230 Sodium 142.6 Potassium 4.1 Chloride 101 Carbon Dioxide 32 H Anion Gap 10 BUN 23 H Creatinine 0.72 Est GFR ( Amer) > 60 Est GFR (Non-Af Amer) > 60 Glucose 101 Calcium 9.3 10/04/17 10/04/17 10/05/17 20:30 20:30 02:35 Creatine Kinase 125 112 CK-MB (CK-2) 4.35 Troponin I < 0.012 NT-Pro-B Natriuret Pep 10/05/17 10/05/17 10/06/17 02:35 07:57 05:47 Creatine Kinase CK-MB (CK-2) 4.26 Troponin I < 0.012 NT-Pro-B Natriuret Pep 348 535 10/07/17 05:40 Creatine Kinase CK-MB (CK-2) Troponin I NT-Pro-B Natriuret Pep 402 Impressions: Chest X-Ray 10/04/17 08:40 IMPRESSION: NO ACUTE RADIOGRAPHIC FINDING IN THE CHEST. Assessment & Plan - Diagnosis (1) Acute and chronic respiratory failure Qualifiers: Respiratory failure complication: hypoxia and hypercapnia Qualified Code(s) : J96.21 - Acute and chronic respiratory failure with hypoxia; J96.22 - Acute and chronic respiratory failure with hypercapnia; J96.22 - Acute and chronic respiratory failure with hypercapnia; J96.22 - Acute and chronic respiratory failure with hypercapnia Is this a current diagnosis for this admission?: Yes Plan: Rapidly approaching his baseline (2) Atrial fibrillation with RVR Is this a current diagnosis for this admission?: Yes Plan: Stable at this time (3) Obstructive sleep apnea Is this a current diagnosis for this admission?: Yes Plan: May use CPAP from home (4) COPD exacerbation Is this a current diagnosis for this admission?: Yes Plan: Continue current treatment therapy patient is currently improving (5) 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
[2017-10-11 14:30] VITALS: BP 163/112
--- NOTE | 2017-10-11 16:46 | PDOC DISCHARGE SUMMARY ---
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 Is this a current diagnosis for this admission?: Yes (6) Obstructive sleep apnea Is this a current diagnosis for this admission?: Yes (7) Sinusitis Is this a current diagnosis for this admission?: Yes - Additional Information Resuscitation Status: Full Code Discharge Activity: Activity As Tolerated Prescriptions: Diltiazem HCl [Diltiazem 24Hr Cd] 120 mg PO DAILY #30 cap.er.24h Levofloxacin [Levaquin 750 mg Tablet] 750 mg PO DAILY #4 tablet Prednisone [Deltasone 20 mg Tablet] 20 mg PO ASDIR PRN #9 tablet PRN Reason: Home Medications: Albuterol Sulfate [Proventil Hfa] 2 puff IH Q6HP PRN 10/04/17 Albuterol Sulfate [Ventolin 0.083% Neb 2.5 mg/3 mL Ampul] 1 vial NEB RTQ6HP PRN 10/04/17 Aspirin [Aspirin 81 mg Chewable Tablet] 81 mg PO DAILY 10/04/17 Cholecalciferol (Vitamin D3) [Vitamin D3 1000 unit Chewable Tablet] 1,000 unit PO DAILY 10/04/17 Fluticasone Propionate [Flonase Nasal [place] 50 Mcg/[place] 16 gm] 1 spray NAREB Q12 10/04/17 Metoprolol Tartrate [Lopressor 50 mg Tablet] 50 mg PO DAILY 10/04/17 Mometasone Furoate [Nasonex] 2 sprays NAREB DAILY 10/04/17 Mometasone/Formoterol [Dulera 200 Mcg/5 Mcg Inhaler] 2 puff IH Q12 10/04/17 Tiotropium [place] [Spiriva Handihaler 5 Cap/Kit (18 Mcg/Cap)] 1 cap IH DAILY Zolpidem Tartrate [Ambien] 10 mg PO HSP PRN 10/04/17 Diltiazem HCl [Diltiazem 24Hr Cd] 120 mg PO DAILY #30 cap.er.24h 10/11/17 Levofloxacin [Levaquin 750 mg Tablet] 750 mg PO DAILY #4 tablet 10/11/17 Prednisone [Deltasone 20 mg Tablet] 20 mg PO ASDIR PRN #9 tablet 10/11/17 History of Present Illness Patient complains of: Cough and shortness of breath History of Present Illness: LUCIO BACA JR is a 72 year old male with increased shortness of breath since Wednesday. His past medical history is significant for underlying COPD. He has known hypertension and has an abdominal aortic aneurysm that is being followed as an outpatient. He has COPD for which he requires oxygen at night. He follows with pulmonology and [place]. The patient states that last Wednesday he felt like he was developing a sinus infection with significant sinus congestion and drainage. He later developed a cough. He was seen at a local urgent care and placed on a prednisone taper as well as a Z-Yoel. In spite of this he continued to worsen and his shortness of breath became so severe that he presented to the emergency room. In the emergency room he was found to be in atrial fibrillation with a rapid rate. He was referred for admission. Chest x-ray did not reveal an underlying pneumonia. He was found to have a sodium level of 150.9. Creatinine was normal. He has hypercalcemia as well as an elevated hemoglobin. Hospital Course Hospital Course: Is admitted to the [facility] on telemetry he required BiPAP for the initial 2 days. He was placed on IV broad-spectrum antibiotics and IV steroids. Pulmonary was consulted and Dr. aGrcia saw the patient consult. He was started on nebulizer treatments as well. He slowly progressed over the next 3 days. He was able to be weaned to nasal cannula and then finally to room air. His cough became productive. He was seen by cardiology for his A. fib with RVR. He was placed on oral Cardizem. Cultures remain negative. Chest x-ray showed no infiltrates. He was transitioned to oral antibiotics and steroids. Today he was able to be weaned off of oxygen. Room air oxygen saturation with activity ambulate in the hallway was 92%. He will continue to use his home CPAP device at bedtime. Will follow up with his research laboratory specialist Dr. Medina. He will follow-up with his primary care provider in 1 week. Physical Exam Vital Signs: Temp Pulse Resp BP Pulse Ox 97.8 F 71 14 163/112 H 94 10/11/17 14:27 10/11/17 14:30 10/11/17 14:30 10/11/17 14:27 10/11/17 14:30 Pulse Oximeter Continuous Start: 10/07/17 13: 06 Freq: RTQ4 Status: Discharge Document 10/11/17 14:30 LDA (Rec: 10/11/17 14:43 LDA [email or web address]) Pulse Oximetry Assessment Equipment Usage Equipment Discontinued Continuous SpO2 Machine # 2 Intake & Output 10/10/17 10/11/17 10/12/17 06:59 06:59 06:59 Intake Total 1472 1527 Output Total 1605 1430 Balance -133 97 Weight 93.6 kg 92.8 kg General appearance: PRESENT: no acute distress, well-developed, well-nourished Head exam: PRESENT: atraumatic, normocephalic Eye exam: PRESENT: conjunctiva pink, EOMI, PERRLA. ABSENT: scleral icterus Ear exam: PRESENT: normal external ear exam Mouth exam: PRESENT: moist, tongue midline Neck exam: ABSENT: carotid bruit, JVD, lymphadenopathy, thyromegaly Respiratory exam: PRESENT: rhonchi, symmetrical, unlabored. ABSENT: rales, wheezes Cardiovascular exam: PRESENT: RRR. ABSENT: diastolic murmur, rubs, systolic murmur Pulses: PRESENT: normal dorsalis pedis pul Vascular exam: PRESENT: normal capillary refill GI/Abdominal exam: PRESENT: normal bowel sounds, soft. ABSENT: distended, guarding, mass, organolmegaly, rebound, tenderness Rectal exam: PRESENT: deferred Extremities exam: PRESENT: full ROM. ABSENT: calf tenderness, clubbing, pedal edema Neurological exam: PRESENT: alert, awake, oriented to person, oriented to place , oriented to time, oriented to situation, CN II-XII grossly intact. ABSENT: motor sensory deficit Psychiatric exam: PRESENT: appropriate affect, normal mood. ABSENT: homicidal ideation, suicidal ideation Skin exam: PRESENT: dry, intact, warm. ABSENT: cyanosis, rash Results Laboratory Results: 10/11/17 07:07 10/11/17 07:07 10/11/17 10/11/17 07:07 07:07 WBC 11.9 H RBC 5.11 Hgb 18.1 H Hct 51.5 H MCV 101 H MCH 35.3 H MCHC 35.0 RDW 13.3 Plt Count 230 Sodium 142.6 Potassium 4.1 Chloride 101 Carbon Dioxide 32 H Anion Gap 10 BUN 23 H Creatinine 0.72 Est GFR ( Amer) > 60 Est GFR (Non-Af Amer) > 60 Glucose 101 Calcium 9.3 10/09/17 12:35 Sputum Gram Stain - Final 10/09/17 12:35 Sputum Sputum Culture - Final C.albicans/C.dubliniensis Normal Gloria 10/04/17 10/04/17 10/05/17 20:30 20:30 02:35 Creatine Kinase 125 112 CK-MB (CK-2) 4.35 Troponin I < 0.012 NT-Pro-B Natriuret Pep 10/05/17 10/05/17 10/06/17 02:35 07:57 05:47 Creatine Kinase CK-MB (CK-2) 4.26 Troponin I < 0.012 NT-Pro-B Natriuret Pep 348 535 10/07/17 05:40 Creatine Kinase CK-MB (CK-2) Troponin I NT-Pro-B Natriuret Pep 402 Impressions: Chest X-Ray 10/04/17 08:40 IMPRESSION: NO ACUTE RADIOGRAPHIC FINDING IN THE CHEST. Qualifiers - * PATIENT BEING DISCHARGED WITH ANY OF THE FOLLOWING DIAGNOSIS: No Plan Discharge Plan: Home with family. Will follow up with PCP in one week
[2017-10-12] MEDS ORDERED: LANSOPRAZOLE 30 MG TAB.RAP.DR PO SCH (06:00)
== END 2017-10-11 14:56 | disposition home or self-care (01) | DRG 189 ==
LOC: ER 08:30 → EH 14:54 → 3S 17:30
PROVIDERS: ADMIT Internal Medicine; ATTEND Internal Medicine
DX: J96.21 Acute and chronic respiratory failure with hypoxia (principal); J44.1 Chronic obstructive pulmonary disease with (acute) exacerbation; E87.0 Hyperosmolality and hypernatremia; I48.0 Paroxysmal atrial fibrillation; E86.0 Dehydration; J96.22 Acute and chronic respiratory failure with hypercapnia; I10 Essential (primary) hypertension; I71.4 Abdominal aortic aneurysm, without rupture; G47.33 Obstructive sleep apnea (adult) (pediatric); J32.9 Chronic sinusitis, unspecified; E83.52 Hypercalcemia; Z60.2 Problems related to living alone; Z79.82 Long term (current) use of aspirin; Z79.51 Long term (current) use of inhaled steroids; Z79.899 Other long term (current) drug therapy; Z87.891 Personal history of nicotine dependence
CPT/HCPCS: 36415; 36600; 71045; 80048; 80053; 80061; 80076; 81001; 82272; 82550; 82553; 82803; 83036; 83735; 83880; 84100; 84443; 84484; 85025; 85027; 85610; 87070; 87205; 93005; 93010; 93306; 94640; 94660; 94667; 94762; 94799; 96361; 96365; 96366; 96367; 96372; 96375; 96376; 99291; G8996-GN; G8997-GN; G8998-GN; J1160; J1650; J1956; J2543; J2920; J2930; J3475; J3490; J7030; J7512; J7620

== ENCOUNTER → 2018-12-19 | Outpatient (CLI) | payer MEDICARE ==
--- NOTE | 2018-12-19 11:40 | RADIOLOGY REPORT (SQ) ---
EXAM DESCRIPTION: MRI LT UPPER JOINT WITHOUT COMPLETED DATE/TIME: 12/19/2018 9:50 am REASON FOR STUDY: M75.52 BURSITIS OF LEFT SHOULDER COMPARISON: None. TECHNIQUE: Left shoulder images acquired and stored on PACS. Multiplanar imaging to include fat sens itive sequences such as T1, water sensitive sequences such as FST2/STIR, cartilage sensitive sequence s such as FSPD/gradient-echo sequences. LIMITATIONS: Motion. FINDINGS: BONE MARROW AND CORTEX: No worrisome bone lesions or marrow replacement. No occult fractur es. JOINT OR BURSAL EFFUSION: No significant joint or bursal fluid. No suggestion of loose bodies. GLENO-HUMERAL ARTICULATION: Intact. ACROMION AND AC JOINT: Type 2 acromion. Moderate AC joint arthropathy. ROTATOR CUFF AND INTERVAL: Partial-thickness articular surface tear of the supraspinatus. No full-th ickness tear. No rotator interval tear. No rotator interval thickening to suggest adhesive capsulitis. LABRUM AND BICEPS LABRAL COMPLEX: Intact. No labral tear. Intra-articular long-head biceps tendon n ormal. Distal biceps in normal location in bicipital groove. REMAINDER OF LABRUM AND IGHL : No gross tear or paralabral cyst formation. Labral evaluation is less than optimal without joint distention. No thickening of IGHL to suggest adhesive capsulitis. PERIARTICULAR AND ADJACENT SOFT TISSUES: No masses or abnormal nodes. OTHER: No other significant finding. IMPRESSION: 1. Partial-thickness articular surface tear of the supraspinatus. 2. AC joint arthropathy. TECHNICAL DOCUMENTATION: JOB ID: [id number] [employer]- All Rights Reserved Reading location - IP/workstation name: [email or web address]
== END ==
LOC: RAD 12-09 08:13
PROVIDERS: ATTEND Orthopaedic Surgery
DX: M75.52 Bursitis of left shoulder (principal); M75.112 Incomplete rotator cuff tear or rupture of left shoulder, not specified as traumatic

== ENCOUNTER 2019-02-07 13:54 | Emergency (ER) | payer OTHER, MEDICARE ==
--- NOTE | 2019-02-07 15:09 | ER Document Report ---
ED Medical Screen (RME) - General Chief Complaint: Abdominal Pain Stated Complaint: BLACK STOOLS Time Seen by Provider: 02/07/19 14:53 Primary Care Provider: JONATHAN FRIAS MD [Primary Care Provider] - Follow up as needed Notes: Patient is a 74-year-old male who presents emergency department with a chief complaint of black tarry stools with diarrhea. He has had an upset stomach for the past 2 to 3 weeks. Patient normally takes Eliquis 5 mg daily for atrial fibrillation. He actually has not had any of his Eliquis for the past 6 days due to him having a minor surgery scheduled this morning. He states now his stool has been more brown, but still continues to have diarrhea. Exam: Soft nontender abdomen. Exam limited due to patient in sitting position. I have greeted and performed a rapid initial assessment of this patient. A comprehensive ED assessment and evaluation of the patient, analysis of test results and completion of medical decision making process will be conducted by an additional ED providers. TRAVEL OUTSIDE OF THE [place] IN LAST 30 DAYS: No - Related Data Allergies/Adverse Reactions: No Known Allergies Allergy (Verified 02/07/19 14:48) Past Medical History - Past Medical History Cardiac Medical History: Reports: Hx Hypertension Denies: Hx Atrial Fibrillation, Hx Congestive Heart Failure, Hx Coronary Artery Disease Pulmonary Medical History: Reports: Hx COPD Neurological Medical History: Denies: Hx Migraine Endocrine Medical History: Denies: Hx Diabetes Mellitus Type 1, Hx Hyperthyroidism, Hx Hypothyroidism Renal/ Medical History: Denies: Hx End Stage Renal Disease, Hx Peritoneal Dialysis GI Medical History: Denies: Hx Crohn's Disease, Hx Gastroesophageal Reflux Disease, Hx Hepatitis, Hx Ulcerative Colitis Traumatic Medical History: Denies: Hx Pneumothorax, Hx Traumatic Brain Injury Infectious Medical History: Denies: Hx C-Diff, Hx Hepatitis, Hx HIV Past Surgical History: Reports: Hx Orthopedic Surgery - bilateral hip. right shoulder, Other - Penile implant Physical Exam - Vital signs Vitals: Temp Pulse Resp BP Pulse Ox 99.0 F 64 17 148/81 H 94 02/07/19 14:23 02/07/19 14:23 02/07/19 14:23 02/07/19 14:23 02/07/19 14:23 Course - Vital Signs Vital signs: Temp Pulse Resp BP Pulse Ox 99.0 F 64 17 148/81 H 94 02/07/19 14:23 02/07/19 14:23 02/07/19 14:23 02/07/19 14:23 02/07/19 14:23 Doctor's Discharge - Discharge Referrals: JONATHAN FRIAS MD [Primary Care Provider] - Follow up as needed
[2019-02-07 15:59] LABS: ABSOLUTE BASOPHILS # (AUTO) 0.1 10^3/uL (0.0-0.2); ABSOLUTE EOSINOPHILS # (AUTO) 0.1 10^3/uL (0.0-0.6); ABSOLUTE LYMPHOCYTES (AUTO) 1.6 10^3/uL (0.5-4.7); ABSOLUTE MONOCYTES (AUTO) 0.7 10^3/uL (0.1-1.4); ABSOLUTE NEUT (AUTO) 4.7 10^3/uL (1.7-8.2); EOSINOPHILS % (AUTO) 1.3 % (0-6); HEMOGLOBIN 16.9 g/dL (13.5-17.0); MEAN CORPUSCULAR HEMOGLOBIN 34.9 pg (27.0-33.4); MEAN CORPUSCULAR HGB CONC 35.2 g/dL (32.0-36.0); MEAN CORPUSCULAR VOLUME 99 fl (80-97); MONOCYTES % (AUTO) 9.7 % (3-13); PLATELET COUNT 173 10^3/uL (150-450); RED BLOOD COUNT 4.83 10^6/uL (4.35-5.55); RED CELL DISTRIBUTION WIDTH 12.8 % (11.5-14.0); TOTAL CELLS COUNTED % (AUTO) 100 %; WHITE BLOOD COUNT 7.1 10^3/uL (4.0-10.5)
[2019-02-07 16:15] LABS: ALBUMIN 4.5 g/dL (3.5-5.0); ALKALINE PHOSPHATASE 56 U/L (38-126); ANION GAP 9 (5-19); ASPARTATE AMINO TRANSFERASE 29 U/L (17-59); BILIRUBIN,DIRECT 0.2 mg/dL (0.0-0.4); BILIRUBIN,TOTAL 1.4 mg/dL (0.2-1.3); BLOOD UREA NITROGEN 13 mg/dL (7-20); CALCIUM 9.4 mg/dL (8.4-10.2); CARBON DIOXIDE 29 mmol/L (22-30); CHLORIDE 102 mmol/L (98-107); GLUCOSE 92 mg/dL (75-110); POTASSIUM 4.3 mmol/L (3.6-5.0); TOTAL PROTEIN 7.1 g/dL (6.3-8.2)
--- NOTE | 2019-02-07 17:44 | ER Document Report ---
ED General - General Chief Complaint: Abdominal Pain Stated Complaint: BLACK STOOLS Time Seen by Provider: 02/07/19 14:53 Primary Care Provider: JONATHAN FRIAS MD [Primary Care Provider] - Follow up as needed Notes: 74-year-old male presents emergency department due to concerns over having black dark tarry stools for the past 3 weeks. Patient states that he is on Eliquis and he stopped taking it on . It has transitioned only being brown rather than black and tarry for the past few days. On further questioning patient admits that his stomach is been acting up for some time so is been taking Pepto-Bismol and after taking the Pepto-Bismol is when his stool turned black. He stopped taking the Pepto-Bismol a few days ago to and that was when his stool turned brown. He does have a history of minor GI bleeding a few years ago when starting Eliquis. Has not had any since then. Had a negative c olonoscopy 2 years ago. TRAVEL OUTSIDE OF THE [place] IN LAST 30 DAYS: No - Related Data Allergies/Adverse Reactions: No Known Allergies Allergy (Verified 02/07/19 14:48) Past Medical History - General Information source: Patient - Social History Smoking Status: Former Smoker Chew tobacco use (# tins/day): No Frequency of alcohol use: None Drug Abuse: None Family History: Hypertension Patient has suicidal ideation: No Patient has homicidal ideation: No - Past Medical History Cardiac Medical History: Reports: Hx Hypertension Denies: Hx Atrial Fibrillation, Hx Congestive Heart Failure, Hx Coronary Artery Disease Pulmonary Medical History: Reports: Hx COPD Neurological Medical History: Denies: Hx Migraine Endocrine Medical History: Denies: Hx Diabetes Mellitus Type 1, Hx Hyperthyroidism, Hx Hypothyroidism Renal/ Medical History: Denies: Hx End Stage Renal Disease, Hx Peritoneal Dialysis GI Medical History: Denies: Hx Crohn's Disease, Hx Gastroesophageal Reflux Disease, Hx Hepatitis, Hx Ulcerative Colitis Traumatic Medical History: Denies: Hx Pneumothorax, Hx Traumatic Brain Injury Infectious Medical History: Denies: Hx C-Diff, Hx Hepatitis, Hx HIV Past Surgical History: Reports: Hx Orthopedic Surgery - bilateral hip. right shoulder, Other - Penile implant Review of Systems - Review of Systems Constitutional: No symptoms reported Respiratory: Cough Gastrointestinal: See HPI -: Yes All other systems reviewed and negative Physical Exam - Vital signs Vitals: Temp Pulse Resp BP Pulse Ox 99.0 F 64 17 148/81 H 94 02/07/19 14:23 02/07/19 14:23 02/07/19 14:23 02/07/19 14:23 02/07/19 14:23 Interpretation: Hypertensive - Notes Notes: GENERAL: Alert, interacts well. No acute distress. HEAD: Normocephalic, atraumatic EYES: Pupils equal, round and reactive to light, extraocular movements intact. ENT: Oral mucosa moist, tongue midline. NECK: Full range of motion, supple, trachea midline. LUNGS: Clear to auscultation bilaterally, no wheezes, rales or rhonchi, no respiratory distress. HEART: Regular rate and rhythm, no murmurs, gallops, rubs. ABDOMEN: Soft, nontender, nondistended, bowel sounds present in all 4 quadrants. EXTREMITIES: Moves all 4 extremities spontaneously, no edema, radial and dorsalis pedis pulses 2/4 bilaterally. No cyanosis. NEUROLOGICAL: Alert and oriented x3, normal speech. RECTAL: Good sphincter tone, brown stool, no melena, negative Hemoccult. PSYCH: Normal mood, normal affect. SKIN: Warm, Dry, normal turgor, no rashes or lesions noted. Course - Re-evaluation Re-evalutation: 02/07/19 17:43 Hemoccult negative, no anemia, CBC shows a hemoglobin 16.9, CMP unremarkable, Pepto-Bismol is likely what turned his stool black. Patient is advised to start taking Eliquis again. Discharged home. Advised to use something else for his heartburn such as Pepcid. Avoid the visible and return if his stool goes black again. - Vital Signs Vital signs: Temp Pulse Resp BP Pulse Ox 99.0 F 64 17 148/81 H 94 02/07/19 14:23 02/07/19 14:23 02/07/19 14:23 02/07/19 14:23 02/07/19 14:23 - Laboratory Result Diagrams: 02/07/19 15:38 02/07/19 15:38 Laboratory results interpreted by me: 02/07/19 02/07/19 15:38 15:38 MCV 99 H MCH 34.9 H Total Bilirubin 1.4 H Discharge - Discharge Clinical Impression: Black stool Condition: Stable Disposition: HOME, SELF-CARE Additional Instructions: Your stool turned back from Pepto-Bismol. There is no evidence of blood in your stool. There is no anemia. Please restart taking your Eliquis. Referrals: JONATHAN FRIAS MD [Primary Care Provider] - Follow up as needed
[2019-02-07 17:51] VITALS: BP 130/86
== END 2019-02-07 17:54 | disposition home or self-care (01) ==
LOC: ER 13:54
DX: R19.5 Other fecal abnormalities (principal); R12 Heartburn; R05 Cough; I10 Essential (primary) hypertension; J44.9 Chronic obstructive pulmonary disease, unspecified; Z87.19 Personal history of other diseases of the digestive system; Z87.891 Personal history of nicotine dependence
CPT/HCPCS: 36415; 80053; 85025; 99284

== ENCOUNTER 2019-06-22 20:03 | Inpatient (IN) | payer OTHER, MEDICARE ==
[2019-06-22] MEDS ORDERED: DILTIAZEM HCL INJ 25 MG/5 ML VIAL ONE (20:06)
[2019-06-22] MEDS ORDERED: DILTIAZEM HCL INJ 25 MG/5 ML VIAL IV ONE (20:08)
--- NOTE | 2019-06-22 20:34 | ER Document Report ---
ED General - General Chief Complaint: Shortness Of Breath Stated Complaint: RESPIRATORY DISTRESS Time Seen by Provider: 06/22/19 20:24 Primary Care Provider: JONATHAN FRIAS MD [ACTIVE STAFF] - Follow up as needed Notes: 74-year-old male arrives by EMS with Tahira as main spokesperson ; patient has a history of COPD CHF and is on CPAP at home 7.5. He attempted to use this himself at home without success. Patient was very tight and unable to speak when EMS arrived. They gave him epinephrine 0.3 and gave him Solu-Medrol 125 IV CASIE treatments x3 and 2 g of mag sulfate and by time of arrival patient was able to speak 5 word sentences but was in mild respiratory distress with tachycardia and tachypnea TRAVEL OUTSIDE OF THE [place] IN LAST 30 DAYS: No - Related Data Allergies/Adverse Reactions: No Known Allergies Allergy (Verified 06/22/19 20:22) Past Medical History - Social History Smoking Status: Former Smoker Frequency of alcohol use: None Drug Abuse: None Family History: Hypertension Patient has suicidal ideation: No Patient has homicidal ideation: No - Past Medical History Cardiac Medical History: Reports: Hx Hypertension Denies: Hx Atrial Fibrillation, Hx Congestive Heart Failure, Hx Coronary Artery Disease Pulmonary Medical History: Reports: Hx COPD Neurological Medical History: Denies: Hx Migraine Endocrine Medical History: Denies: Hx Diabetes Mellitus Type 1, Hx Hyperthyroidism, Hx Hypothyroidism Renal/ Medical History: Denies: Hx End Stage Renal Disease, Hx Peritoneal Dialysis GI Medical History: Denies: Hx Crohn's Disease, Hx Gastroesophageal Reflux Disease, Hx Hepatitis, Hx Ulcerative Colitis Traumatic Medical History: Denies: Hx Pneumothorax, Hx Traumatic Brain Injury Infectious Medical History: Denies: Hx C-Diff, Hx Hepatitis, Hx HIV Past Surgical History: Reports: Hx Orthopedic Surgery - bilateral hip. right shoulder, Other - Penile implant Physical Exam - Vital signs Vitals: Temp Pulse Resp BP Pulse Ox 100.4 F 134 H 18 161/79 H 96 06/22/19 20:03 06/22/19 20:03 06/22/19 20:03 06/22/19 20:03 06/22/19 20:03 Interpretation: Hypertensive, Tachycardic, Hypoxic - General General appearance: Anxious In distress: Mild - 74-year-old male on BiPAP and speaking 5-6 word sentences without problem - HEENT Head: Normocephalic Eyes: Normal Conjunctiva: Normal Cornea: Normal Extraocular movements intact: Yes Eyelashes: Normal Pupils: PERRL Sinus: Normal Nasal: Normal Mouth/Lips: Normal Pharynx: Normal Neck: Normal - Respiratory Respiratory status: Respiratory distress Chest status: Nontender Breath sounds: Decreased air movement, Wheezing Chest palpation: Normal - Cardiovascular Rhythm: Tachycardia Heart sounds: Normal auscultation Murmur: No Friction rub: No Sita's crunch: No - Abdominal Inspection: Normal Distension: No distension Bowel sounds: Normal Tenderness: Nontender Organomegaly: No organomegaly - Back Back: Normal - Extremities General upper extremity: Normal inspection General lower extremity: Normal inspection Course - Vital Signs Vital signs: Temp Pulse Resp BP Pulse Ox 100.4 F 134 H 17 123/74 98 06/22/19 20:03 06/22/19 20:03 06/22/19 23:15 06/22/19 23:15 06/22/19 23:15 - Laboratory Result Diagrams: 06/22/19 20:09 06/22/19 22:07 Laboratory results interpreted by me: 06/22/19 06/22/19 06/22/19 20:09 20:09 22:07 WBC 16.2 H Hgb 18.2 H Hct 51.2 H MCV 102 H MCH 36.2 H Lymph % (Auto) 9.8 L Absolute Neuts (auto) 13.5 H Seg Neutrophils % 83.5 H ABG pO2 ABG Total CO2 ABG O2 Saturation Sodium 136.8 L Glucose 163 H Lactic Acid 3.5 H NT-Pro-B Natriuret Pep 06/22/19 06/22/19 22:07 23:19 WBC Hgb Hct MCV MCH Lymph % (Auto) Absolute Neuts (auto) Seg Neutrophils % ABG pO2 128.3 H ABG Total CO2 22.2 L ABG O2 Saturation 98.5 H Sodium Glucose Lactic Acid NT-Pro-B Natriuret Pep 341 H - Diagnostic Test Radiology reviewed: Reports reviewed - EKG Interpretation by Me EKG shows normal: Sinus rhythm Rate: Tachycardia Critical Care Note - Critical Care Note Total time excluding time spent on procedures (mins): 90 Comments: I discussed this case with Dr. Jam Garcia and he advises ABG; we called at [id number] and he advised medical. Discharge - Discharge Clinical Impression: COPD exacerbation Acute and chronic respiratory failure Qualifiers: Respiratory failure complication: hypoxia Qualified Code(s): J96.21 - Acute and chronic respiratory failure with hypoxia Condition: Fair Disposition: ADMITTED INPATIENT Unit Admitted: Medical Floor Additional Instructions: Transfer patient to medical floor Referrals: JONATHAN FRIAS MD [ACTIVE STAFF] - Follow up as needed
[2019-06-22] MEDS ORDERED: DEXAMETHASONE SOD PHOS INJ 10 MG/1 ML VIAL IV ONE (20:46)
[2019-06-22 20:59] LABS: INTERNATIONAL RATION (INR) 0.98
[2019-06-22 21:00] LABS: PARTIAL THROMBOPLASTIN TIME 28.3 SEC (23.5-35.8)
[2019-06-22 21:01] LABS: ABSOLUTE BASOPHILS # (AUTO) 0.1 10^3/uL (0.0-0.2); ABSOLUTE EOSINOPHILS # (AUTO) 0.1 10^3/uL (0.0-0.6); ABSOLUTE LYMPHOCYTES (AUTO) 1.6 10^3/uL (0.5-4.7); ABSOLUTE MONOCYTES (AUTO) 0.9 10^3/uL (0.1-1.4); ABSOLUTE NEUT (AUTO) 13.5 10^3/uL (1.7-8.2); BASOPHILS % (AUTO) 0.6 % (0-2); EOSINOPHILS % (AUTO) 0.5 % (0-6); HEMATOCRIT 51.2 % (37.9-51.0); HEMOGLOBIN 18.2 g/dL (13.5-17.0); LYMPHOCYTES % (AUTO) 9.8 % (13-45); MEAN CORPUSCULAR HEMOGLOBIN 36.2 pg (27.0-33.4); MEAN CORPUSCULAR HGB CONC 35.6 g/dL (32.0-36.0); MEAN CORPUSCULAR VOLUME 102 fl (80-97); MONOCYTES % (AUTO) 5.6 % (3-13); PLATELET COUNT 215 10^3/uL (150-450); RED BLOOD COUNT 5.04 10^6/uL (4.35-5.55); SEGMENTED NEUTROPHILS % (AUTO) 83.5 % (42-78); TOTAL CELLS COUNTED % (AUTO) 100 %; WHITE BLOOD COUNT 16.2 10^3/uL (4.0-10.5)
--- NOTE | 2019-06-22 21:53 | RADIOLOGY REPORT (SQ) ---
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 COMPARISON: 10/04/2017 FINDINGS: The cardiac silhouette is within normal limits. There is no pulmonary vascular congestion. No focal consolidation is identified. No pleural effusions or pneumothorax. IMPRESSION: No evidence of acute cardiopulmonary disease.
[2019-06-22 22:42] LABS: ALBUMIN 4.3 g/dL (3.5-5.0); ALKALINE PHOSPHATASE 69 U/L (38-126); ANION GAP 12 (5-19); ASPARTATE AMINO TRANSFERASE 26 U/L (17-59); BILIRUBIN,DIRECT 0.3 mg/dL (0.0-0.4); BILIRUBIN,TOTAL 1.2 mg/dL (0.2-1.3); BLOOD UREA NITROGEN 16 mg/dL (7-20); CALCIUM 9.1 mg/dL (8.4-10.2); CARBON DIOXIDE 22 mmol/L (22-30); CHLORIDE 103 mmol/L (98-107); CREATINE KINASE 93 U/L (55-170); GLUCOSE 163 mg/dL (75-110); POTASSIUM 4.3 mmol/L (3.6-5.0); TOTAL PROTEIN 6.9 g/dL (6.3-8.2)
[2019-06-22 23:00] LABS: CREATINE KINASE MB 2.67 ng/mL (<4.55)
[2019-06-22 23:03] LABS: TROPONIN I 0.052 ng/mL
[2019-06-22 23:42] LABS: ARTERIAL BLOOD BASE EXCESS -3.2 mmol/L; ARTERIAL BLOOD FIO2 50%; ARTERIAL BLOOD H2CO3 1.08 mmol/L (1.05-1.35); ARTERIAL BLOOD O2 SATURATION 98.5 % (94-98); ARTERIAL BLOOD PCO2 35.9 mmHg (35-45); ARTERIAL BLOOD PH 7.39 (7.35-7.45); ARTERIAL BLOOD PO2 128.3 mmHg (80-100); ARTERIAL BLOOD TOTAL CO2 22.2 mmol/L (23-27)
[2019-06-23 00:23] LABS: APPEARANCE,URINE CLEAR; BILIRUBIN,URINE NEGATIVE (NEGATIVE); COLOR,URINE YELLOW; GLUCOSE, URINE NEGATIVE (NEGATIVE); KETONES,URINE 20 mg/dL (NEGATIVE); LEUKOCYTE ESTERASE,URINE NEGATIVE (NEGATIVE); NITRITE,URINE NEGATIVE (NEGATIVE); PROTEIN,URINE NEGATIVE (NEGATIVE); UROBILINOGEN,URINE NEGATIVE mg/dL (<2.0)
[2019-06-23] MEDS ORDERED: PROMETHAZINE HCL INJ 25 MG/1 ML VIAL IV PRN (00:29)
[2019-06-23] MEDS ORDERED: MAG HYDROX/AL HYDROX/SIMETH SUSP 30 ML UDCUP PO PRN (00:29)
[2019-06-23] MEDS ORDERED: LEVALBUTEROL HCL NEB 0.63 MG/3 ML AMPUL NEB PRN (00:29)
[2019-06-23] MEDS ORDERED: MAGNESIUM HYDROXIDE SUSP 30 ML UDCUP PO PRN (00:29)
[2019-06-23] MEDS ORDERED: ACETAMINOPHEN 325 MG TABLET PO PRN (00:32)
[2019-06-23] MEDS ORDERED: HYDRALAZINE HCL INJ/PF 20 MG/1 ML SDV IV PRN (00:32)
[2019-06-23] MEDS ORDERED: METOPROLOL TARTRATE PF/INJ 5 MG/5 ML SDV IV PRN (00:41)
[2019-06-23] MEDS ORDERED: LORAZEPAM INJ 2 MG/1 ML VIAL IV PRN (00:41)
[2019-06-23] MEDS ORDERED: MORPHINE SULFATE 10 MG/ML INJ IV PRN ×3 (00:41)
[2019-06-23] MEDS ORDERED: NICOTINE 21 MG/24 HR PATCH.TD24 TD PRN (00:41)
[2019-06-23 01:48] LABS: CREATINE KINASE MB 2.91 ng/mL (<4.55); TROPONIN I 0.082 ng/mL
--- NOTE | 2019-06-23 02:03 | PDOC H&P ---
History of Present Illness Admission Date/PCP: 06/22/2019 23:58 SURENDRA TROTTER MD Patient complains of: Dyspnea History of Present Illness: LUCIO DYER JR is a 74 year old male who presented to the emergency room with a 3-day history of dyspnea. He admits gradually worsening constant dyspnea over the last 3 days becoming severe tonight. His dyspnea has been accompanied by wheezing and worsened with exertion. He denies other associated or accompanying signs and symptoms. His dyspnea has not been improved by utilizing his home medications including utilizing his home CPAP on a continuous basis. He admits numerous prior similar episodes related to his COPD. He has not identified any additional aggravating or ameliorating factors for his dyspnea. EMS was called this evening and found him to be in severe respiratory distress, unable to speak and markedly hypoxic. They initiated treatment with BiPAP at 15/5 with 100% oxygen, epinephrine 0.3 subcu and Solu-Medrol 125 mg IV as well as DuoNeb treatments x3 and mag sulfate 2 g IV prior to coming to the emergency room. Upon arrival in the emergency room he had improved to the point where he could speak in 3-4 word sentences and over the course of time he has improved further with continued BiPAP. He was subsequently admitted to the hospital for further evaluation and treatment. Past Medical History Cardiac Medical History: Reports: Atrial Fibrillation, Hypertension Denies: Congestive Heart Failure, Coronary Artery Disease, DVT, Myocardial Infarction, Hyperlipidema, Pulmonary Embolism Pulmonary Medical History: Reports: Bronchitis, Chronic Obstructive Pulmonary Disease (COPD), Pneumonia, Respiratory Failure - Chronic hypoxic respiratory failure, Sleep Apnea EENT Medical History: Denies: Cataracts, Ears - Hearing aids Neurological Medical History: Denies: Hemorrhagic CVA, Ischemic CVA, Seizures Endocrine Medical History: Denies: Diabetes Mellitus Type 1, Hyperthyroidism, Hypothyroidism Renal/ Medical History: Denies: Chronic Kidney Disease, Nephrolithiasis Malignancy Medical History: Reports: None GI Medical History: Denies: Crohn's Disease, Gastroesophageal Reflux Disease, Hepatitis, Ulcerative Colitis Musculoskeltal Medical History: Denies: Arthritis, Gout Skin Medical History: Denies: Eczema, Psoriasis Psychiatric Medical History: Reports: Tobacco Dependency Denies: Alcohol Dependency, Substance Abuse Traumatic Medical History: Reports: None Hematology: Denies: Anemia, Bleeding Tendencies Infectious Medical History: Reports: None Past Surgical History Past Surgical History: Reports: Hip Replacement, Orthopedic Surgery - Bilateral hip placements. Bilateral shoulder surgeries., Other - Penile implant Social History Information Source: Patient Lives with: Alone Smoking Status: Former Smoker Electronic Cigarette use?: No Frequency of Alcohol Use: Social Hx Recreational Drug Use: No Drugs: None Hx Prescription Drug Abuse: No - Advance Directive Resuscitation Status: Full Code Surrogate healthcare decision maker:: Henrique Dyer Family History Family History: Hypertension. denies: CAD, DM, Malignancy Parental Family History Reviewed: Yes Children Family History Reviewed: No Sibling(s) Family History Reviewed.: Yes Medication/Allergy Home Medications: Albuterol Sulfate [Proventil Hfa] 2 puff IH Q6HP PRN 10/04/17 Albuterol Sulfate [Ventolin 0.083% Neb 2.5 mg/3 mL Ampul] 1 vial NEB RTQ6HP PRN 10/04/17 Aspirin [Aspirin 81 mg Chewable Tablet] 81 mg PO DAILY 10/04/17 Cholecalciferol (Vitamin D3) [Vitamin D3 1000 unit Chewable Tablet] 1,000 unit PO DAILY 10/04/17 Fluticasone Propionate [Flonase Nasal [place] 50 Mcg/[place] 16 gm] 1 spray NAREB Q12 10/04/17 Metoprolol Tartrate [Lopressor 50 mg Tablet] 50 mg PO DAILY 10/04/17 Mometasone Furoate [Nasonex] 2 sprays NAREB DAILY 10/04/17 Mometasone/Formoterol [Dulera 200 Mcg/5 Mcg Inhaler] 2 puff IH Q12 10/04/17 Tiotropium [place] [Spiriva Handihaler 5 Cap/Kit (18 Mcg/Cap)] 1 cap IH DAILY 10/04/17 Zolpidem Tartrate [Ambien] 10 mg PO HSP PRN 10/04/17 Diltiazem HCl [Diltiazem 24Hr Cd] 120 mg PO DAILY #30 cap.er.24h 10/11/17 Levofloxacin [Levaquin 750 mg Tablet] 750 mg PO DAILY #4 tablet 10/11/17 Prednisone [Deltasone 20 mg Tablet] 20 mg PO ASDIR PRN #9 tablet 10/11/17 Allergies/Adverse Reactions: No Known Allergies Allergy (Verified 06/22/19 20:22) Review of Systems Constitutional: ABSENT: chills, fever(s) Eyes: ABSENT: visual disturbances, other - Eye pain Ears: ABSENT: hearing changes, other - Ear pain Nose, Mouth, and Throat: ABSENT: headache(s), mouth pain, sore throat Cardiovascular: PRESENT: as per HPI, dyspnea on exertion. ABSENT: chest pain, edema, orthropnea, palpitations Respiratory: PRESENT: as per HPI, dyspnea. ABSENT: cough, hemoptysis, sputum Gastrointestinal: ABSENT: abdominal pain, constipation, diarrhea, nausea, vomiting Genitourinary: ABSENT: dysuria, hematuria Musculoskeletal: ABSENT: back pain, joint swelling Integumentary: ABSENT: pruritus, rash Neurological: ABSENT: confusion, convulsions, focal weakness, memory loss, syncope Psychiatric: ABSENT: anxiety, depression Endocrine: ABSENT: cold intolerance, heat intolerance, polydipsia, polyphagia, polyuria Hematologic/Lymphatic: ABSENT: easy bleeding, easy bruising Allergic/Immunologic: ABSENT: seasonal rhinorrhea Physical Exam Vital Signs: Temp Pulse Resp BP Pulse Ox 100.4 F 134 H 14 142/83 H 97 06/22/19 20:03 06/22/19 20:03 06/22/19 23:45 06/22/19 23:45 06/22/19 23:45 Intake & Output 06/21/19 06/22/19 06/23/19 23:59 23:59 23:59 Weight 89.1 kg General appearance: PRESENT: no acute distress, cooperative, other - On BiPAP the time of my exam Head exam: PRESENT: atraumatic, normocephalic Eye exam: PRESENT: conjunctiva pink. ABSENT: conjunctival injection, scleral icterus Ear exam: PRESENT: normal external ear exam. ABSENT: bleeding, drainage Mouth exam: PRESENT: dry mucosa, neck supple Neck exam: ABSENT: thyromegaly, tracheal deviation Respiratory exam: PRESENT: decreased breath sounds - Moderately decreased breath sounds throughout all [place], prolonged expiratory phas - Moderately prolonged expiratory phase in all [place], symmetrical, tachypnea, wheezes - Expiratory wheezes present in all [place] Cardiovascular exam: PRESENT: irregular rhythm, tachycardia. ABSENT: clicks, gallop, rubs Pulses: PRESENT: normal radial pulses, normal dorsalis pedis pul Vascular exam: PRESENT: normal capillary refill. ABSENT: pallor GI/Abdominal exam: PRESENT: normal bowel sounds, soft Rectal exam: PRESENT: deferred Extremities exam: ABSENT: joint swelling, pedal edema Musculoskeletal exam: ABSENT: deformity, dislocation Neurological exam: PRESENT: alert, oriented to person, oriented to place, oriented to time, oriented to situation, CN II-XII grossly intact, motor sensory deficit Psychiatric exam: PRESENT: appropriate affect, normal mood Skin exam: PRESENT: dry, intact, warm. ABSENT: jaundice, rash, urticaria Results Laboratory Results: 06/22/19 20:09 06/22/19 22:07 06/22/19 06/22/19 06/22/19 20:09 20:09 22:07 WBC 16.2 H RBC 5.04 Hgb 18.2 H Hct 51.2 H MCV 102 H MCH 36.2 H MCHC 35.6 RDW 13.0 Plt Count 215 Seg Neutrophils % 83.5 H Carbonic Acid HCO3/H2CO3 Ratio ABG pH ABG pCO2 ABG pO2 ABG HCO3 ABG O2 Saturation ABG Base Excess FiO2 Sodium 136.8 L Potassium 4.3 Chloride 103 Carbon Dioxide 22 Anion Gap 12 BUN 16 Creatinine 0.63 Est GFR ( Amer) > 60 Glucose 163 H Lactic Acid 3.5 H Calcium 9.1 Total Bilirubin 1.2 AST 26 Alkaline Phosphatase 69 Total Protein 6.9 Albumin 4.3 06/22/19 23:19 WBC RBC Hgb Hct MCV MCH MCHC RDW Plt Count Seg Neutrophils % Carbonic Acid 1.08 HCO3/H2CO3 Ratio 19:1 ABG pH 7.39 ABG pCO2 35.9 ABG pO2 128.3 H ABG HCO3 21.0 ABG O2 Saturation 98.5 H ABG Base Excess -3.2 FiO2 50% Sodium Potassium Chloride Carbon Dioxide Anion Gap BUN Creatinine Est GFR ( Amer) Glucose Lactic Acid Calcium Total Bilirubin AST Alkaline Phosphatase Total Protein Albumin 06/22/19 06/22/19 22:07 22:07 Creatine Kinase 93 CK-MB (CK-2) 2.67 Troponin I 0.052 NT-Pro-B Natriuret Pep 341 H Impressions: Chest X-Ray 06/22/19 00:00 IMPRESSION: No evidence of acute cardiopulmonary disease. Assessment and Plan - Diagnosis (1) COPD exacerbation Is this a current diagnosis for this admission?: Yes (2) Acute and chronic respiratory failure with hypoxia Is this a current diagnosis for this admission?: Yes (3) Elevated lactic acid level Is this a current diagnosis for this admission?: Yes (4) Elevated troponin I level Is this a current diagnosis for this admission?: Yes (5) Leukocytosis Qualifiers: Leukocytosis type: unspecified Qualified Code(s): D72.829 - Elevated white blood cell count, unspecified Is this a current diagnosis for this admission?: Yes (6) Obstructive sleep apnea Is this a current diagnosis for this admission?: Yes (7) Erythrocytosis due to alveolar hypoventilation Is this a current diagnosis for this admission?: Yes - Plan Summary Summary: Patient is admitted to the medical floor where he will receive routine supportive and symptomatic cares. Patient be treated with aggressive pulmonary toilet utilizing nebulized Xopenex, Atrovent and Pulmicort. Will be treated with IV steroids utilizing Solu-Medrol 40 mg every 6 hours x3 doses. He will be continued on supplemental oxygen therapy utilizing BiPAP or nasal cannula to maintain an adequate oxygen saturation level. He will be continued on IV fluids at 167 mL/h over the next 12 hours. CBCs, metabolic profiles and magnesium levels be obtained as appropriate. A TSH and a routine EKG will be obtained. Serial lactic acid levels will be obtained. Will use morphine sulfate 2 to 4 mg IV every 2 hours on as-needed basis for pain control and will use Ativan 1 mg IV every 4 hours on an as-needed basis for anxiety. He will be continued on his usual home medications as appropriate once his medication list has been verified and reconciled. - Time Time Spent with patient: 25-34 minutes Medications reviewed and adjusted accordingly: Yes Anticipated discharge: Home - Inpatient Certification Based on my medical assessment, after consideration of the patient's comorbidities, presenting symptoms, or acuity I expect that the services needed warrant INPATIENT care.: Yes I certify that my determination is in accordance with my understanding of Medicare's requirements for reasonable and necessary INPATIENT services [42 CFR 412.3e].: Yes Medical Necessity: Need Close Monitoring Due to Risk of Patient Decompensation, Need for Nebulizer Therapy and Monitoring of Response, Risk of Complication if Not Cared For in Hospital
[2019-06-23 05:34] LABS: HEMATOCRIT 46.2 % (37.9-51.0); MEAN CORPUSCULAR HEMOGLOBIN 34.7 pg (27.0-33.4); MEAN CORPUSCULAR HGB CONC 34.7 g/dL (32.0-36.0); MEAN CORPUSCULAR VOLUME 100 fl (80-97); PLATELET COUNT 185 10^3/uL (150-450); RED BLOOD COUNT 4.62 10^6/uL (4.35-5.55); WHITE BLOOD COUNT 18.7 10^3/uL (4.0-10.5)
[2019-06-23 05:53] LABS: CREATINE KINASE MB 3.33 ng/mL (<4.55); TROPONIN I 0.062 ng/mL
[2019-06-23] MEDS: HEPARIN SOD (PORCINE) 5,000 UNIT/ML 1 ML VIAL SUBCUT SCH ×3 (05:57→22:54)
[2019-06-23] MEDS: PANTOPRAZOLE SODIUM 40 MG TABLET.DR PO SCH (05:57)
[2019-06-23] MEDS: METHYLPREDNISOLONE INJ 40 MG/1 ML SDV IV SCH ×3 (05:58→18:34)
[2019-06-23] MEDS: LEVALBUTEROL HCL NEB 1.25 MG/3 ML AMPUL NEB SCH ×2 (07:58→15:47)
[2019-06-23] MEDS: IPRATROPIUM BROMIDE 0.02% NEB 0.5 MG/2.5 ML AMPUL NEB SCH ×2 (07:58→15:47)
[2019-06-23] MEDS: BUDESONIDE NEB 0.5 MG/2 ML AMPUL NEB SCH ×2 (07:58→19:23)
--- NOTE | 2019-06-23 10:43 | EKG REPORT ---
SEVERITY:- BORDERLINE ECG - SINUS RHYTHM BORDERLINE PROLONGED QT INTERVAL : Confirmed by: Reba Da Silva 23-Jun-2019 10:42:34
[2019-06-23 12:13] LABS: CREATINE KINASE MB 3.49 ng/mL (<4.55)
[2019-06-23 12:17] LABS: TROPONIN I 0.04 ng/mL
[2019-06-23] MEDS: DOCUSATE SODIUM 100 MG CAPSULE PO SCH ×2 (12:29→18:34)
[2019-06-23] MEDS: DEXTROSE 5%-LACTATED RINGERS 1,000 ML IV PRN (19:42)
[2019-06-24] MEDS: ZOLPIDEM TARTRATE 5 MG TABLET PO PRN ×2 (00:34→21:34)
[2019-06-24] MEDS: LEVALBUTEROL HCL NEB 1.25 MG/3 ML AMPUL NEB SCH ×2 (00:44→07:46)
[2019-06-24] MEDS: IPRATROPIUM BROMIDE 0.02% NEB 0.5 MG/2.5 ML AMPUL NEB SCH ×4 (00:44→23:49)
[2019-06-24 04:47] LABS: HEMATOCRIT 41.5 % (37.9-51.0); HEMOGLOBIN 14.6 g/dL (13.5-17.0); MEAN CORPUSCULAR HEMOGLOBIN 35.7 pg (27.0-33.4); MEAN CORPUSCULAR HGB CONC 35.2 g/dL (32.0-36.0); MEAN CORPUSCULAR VOLUME 102 fl (80-97); PLATELET COUNT 175 10^3/uL (150-450); RED BLOOD COUNT 4.08 10^6/uL (4.35-5.55); RED CELL DISTRIBUTION WIDTH 13.3 % (11.5-14.0); WHITE BLOOD COUNT 15.3 10^3/uL (4.0-10.5)
[2019-06-24 05:11] LABS: ANION GAP 9 (5-19); BLOOD UREA NITROGEN 20 mg/dL (7-20); CALCIUM 9.1 mg/dL (8.4-10.2); CARBON DIOXIDE 25 mmol/L (22-30); CHLORIDE 104 mmol/L (98-107); GLUCOSE 254 mg/dL (75-110); POTASSIUM 4.4 mmol/L (3.6-5.0)
[2019-06-24] MEDS: HEPARIN SOD (PORCINE) 5,000 UNIT/ML 1 ML VIAL SUBCUT SCH (05:13)
[2019-06-24] MEDS: DEXTROSE 5%-LACTATED RINGERS 1,000 ML IV PRN (06:47)
[2019-06-24] MEDS: PANTOPRAZOLE SODIUM 40 MG TABLET.DR PO SCH (06:51)
[2019-06-24] MEDS: BUDESONIDE NEB 0.5 MG/2 ML AMPUL NEB SCH (07:45)
[2019-06-24] MEDS: DILTIAZEM HCL 120 MG CAP.SR.24H PO SCH (09:49)
[2019-06-24] MEDS: METOPROLOL TARTRATE 25 MG TABLET PO SCH ×2 (09:49→17:25)
[2019-06-24] MEDS: CHOLECALCIFEROL (D3) 1,000 UNIT (25 MCG) TABLET PO SCH ×2 (09:49→17:25)
[2019-06-24] MEDS: DOCUSATE SODIUM 100 MG CAPSULE PO SCH ×2 (09:49→17:21)
[2019-06-24] MEDS: FLUTICASONE NASAL SPRAY 50 MCG/SPRY 120 SPRAY/16 GM NASL SCH ×2 (09:50→17:24)
[2019-06-24] MEDS ORDERED: LEVALBUTEROL HCL NEB 0.63 MG/3 ML AMPUL NEB PRN (12:15)
[2019-06-24] MEDS: APIXABAN 5 MG TABLET PO SCH ×2 (12:58→21:31)
[2019-06-24] MEDS ORDERED: PREDNISONE 20 MG TABLET PO ONE (13:15)
--- NOTE | 2019-06-24 14:08 | PDOC PROGRESS REPORT ---
Subjective Progress Note for:: 06/24/19 Reason For Visit: ACUTE EXACERBATION OF COPD,ACUTE ON CHRONIC Physical Exam Vital Signs: Temp Pulse Resp BP Pulse Ox 98.7 F 90 21 H 124/82 96 06/24/19 12:00 06/24/19 12:00 06/24/19 12:00 06/24/19 12:00 06/24/19 12:00 Intake & Output 06/23/19 06/24/19 06/25/19 06:59 06:59 06:59 Intake Total 260 2460 Output Total 1400 Balance 260 1060 Weight 89.2 kg 89.8 kg General appearance: PRESENT: no acute distress, cooperative, disheveled, obese, other - Looks flushed Respiratory exam: PRESENT: decreased breath sounds, prolonged expiratory phas, symmetrical, unlabored. ABSENT: accessory muscle use, chest wall tenderness, rales, retraction, rhonchi, tachypnea, wheezes Cardiovascular exam: PRESENT: irregular rhythm - Regular rate, +S1, +S2 Pulses: PRESENT: normal carotid pulses Vascular exam: PRESENT: normal capillary refill GI/Abdominal exam: PRESENT: normal bowel sounds, soft. ABSENT: distended, guarding, rebound, tenderness Extremities exam: ABSENT: clubbing, pedal edema Musculoskeletal exam: PRESENT: normal inspection. ABSENT: deformity Neurological exam: PRESENT: alert, awake, oriented to person, oriented to place, oriented to situation Psychiatric exam: PRESENT: appropriate affect, normal mood Skin exam: PRESENT: dry, warm, other - Flushed Results Laboratory Results: 06/24/19 03:53 06/24/19 03:53 06/24/19 06/24/19 03:53 03:53 WBC 15.3 H RBC 4.08 L Hgb 14.6 Hct 41.5 MCV 102 H MCH 35.7 H MCHC 35.2 RDW 13.3 Plt Count 175 Sodium 137.7 Potassium 4.4 Chloride 104 Carbon Dioxide 25 Anion Gap 9 BUN 20 Creatinine 0.70 Est GFR ( Amer) > 60 Glucose 254 H Calcium 9.1 Magnesium 2.4 H 06/22/19 06/22/19 06/23/19 22:07 22:07 01:14 Creatine Kinase 93 93 CK-MB (CK-2) 2.67 Troponin I 0.052 NT-Pro-B Natriuret Pep 341 H 02/06/23/19 06/23/19 01:14 04:59 04:59 Creatine Kinase 89 CK-MB (CK-2) 2.91 3.33 Troponin I 0.082 0.062 NT-Pro-B Natriuret Pep 06/23/19 06/23/19 11:35 11:35 Creatine Kinase 64 CK-MB (CK-2) 3.49 Troponin I 0.040 NT-Pro-B Natriuret Pep Impressions: Chest X-Ray 06/22/19 00:00 IMPRESSION: No evidence of acute cardiopulmonary disease. Assessment and Plan - Diagnosis (1) Acute and chronic respiratory failure with hypoxia Is this a current diagnosis for this admission?: Yes Plan: Resolved. Stable on his usual level of home oxygen support. (2) COPD exacerbation Is this a current diagnosis for this admission?: Yes Plan: The nebulizer treatments make him jittery. I have changed these to PRN and discontinue the scheduled nebs. I started him on some oral prednisone and stopped his Pulmicort. We will going to get him up and ambulate him today. (3) Paroxysmal atrial fibrillation Is this a current diagnosis for this admission?: Yes Plan: Controlled with his home medications, anticoagulated. - Plan Summary Summary: Patient is admitted to the medical floor where he will receive routine suppor tive and symptomatic cares. Patient be treated with aggressive pulmonary toilet utilizing nebulized Xopenex, Atrovent and Pulmicort. Will be treated with IV steroids utilizing Solu-Medrol 40 mg every 6 hours x3 doses. He will be continued on supplemental oxygen therapy utilizing BiPAP or nasal cannula to maintain an adequate oxygen saturation level. He will be continued on IV fluids at 167 mL/h over the next 12 hours. CBCs, metabolic profiles and magnesium levels be obtained as appropriate. A TSH and a routine EKG will be obtained. Serial lactic acid levels will be obtained. Will use morphine sulfate 2 to 4 mg IV every 2 hours on as-needed basis for pain control and will use Ativan 1 mg IV every 4 hours on an as-needed basis for anxiety. He will be continued on his usual home medications as appropriate once his medication list has been verified and reconciled. - Time Time Spent with patient: 15-24 minutes
[2019-06-24] MEDS: ATORVASTATIN CALCIUM 20 MG TABLET PO SCH (21:31)
--- NOTE | 2019-06-24 22:01 | EKG REPORT ---
SEVERITY:- ABNORMAL ECG - SINUS TACHYCARDIA MULTIFORM VENTRICULAR PREMATURE COMPLEXES : Confirmed by: Reba Da Silva 24-Jun-2019 22:01:10
[2019-06-25] MEDS: PANTOPRAZOLE SODIUM 40 MG TABLET.DR PO SCH (05:13)
[2019-06-25 06:09] LABS: HEMATOCRIT 44.9 % (37.9-51.0); HEMOGLOBIN 15.2 g/dL (13.5-17.0); MEAN CORPUSCULAR HEMOGLOBIN 34.6 pg (27.0-33.4); MEAN CORPUSCULAR HGB CONC 33.8 g/dL (32.0-36.0); MEAN CORPUSCULAR VOLUME 102 fl (80-97); PLATELET COUNT 199 10^3/uL (150-450); RED BLOOD COUNT 4.39 10^6/uL (4.35-5.55); RED CELL DISTRIBUTION WIDTH 13.3 % (11.5-14.0)
[2019-06-25 06:31] LABS: ANION GAP 7 (5-19); BLOOD UREA NITROGEN 18 mg/dL (7-20); CALCIUM 8.7 mg/dL (8.4-10.2); CARBON DIOXIDE 29 mmol/L (22-30); CHLORIDE 103 mmol/L (98-107); GLUCOSE 121 mg/dL (75-110); POTASSIUM 4.5 mmol/L (3.6-5.0)
[2019-06-25] MEDS: IPRATROPIUM BROMIDE 0.02% NEB 0.5 MG/2.5 ML AMPUL NEB SCH ×2 (07:30→16:33)
[2019-06-25] MEDS ORDERED: (PENDING PHARMACY ID) (Tiotropium Bromide [Spiriva Handihaler 5 Cap/Kit (18 Mcg/Cap)] 1 PU IH SCH (10:00)
[2019-06-25] MEDS: FLUTICASONE NASAL SPRAY 50 MCG/SPRY 120 SPRAY/16 GM NASL SCH ×2 (10:22→17:57)
[2019-06-25] MEDS: UMECLIDINIUM BROMIDE 62.5 MCG/DOSE IH SCH (10:22)
[2019-06-25] MEDS: FLUTICASONE/VILANTEROL 200-25 MCG/DOSE IH SCH (10:23)
[2019-06-25] MEDS: METOPROLOL TARTRATE 25 MG TABLET PO SCH ×2 (10:24→17:57)
[2019-06-25] MEDS: PREDNISONE 20 MG TABLET PO SCH (10:24)
[2019-06-25] MEDS: APIXABAN 5 MG TABLET PO SCH ×2 (10:24→21:55)
[2019-06-25] MEDS: CHOLECALCIFEROL (D3) 1,000 UNIT (25 MCG) TABLET PO SCH ×2 (10:24→17:57)
[2019-06-25] MEDS: DILTIAZEM HCL 120 MG CAP.SR.24H PO SCH (10:24)
[2019-06-25] MEDS: DOCUSATE SODIUM 100 MG CAPSULE PO SCH ×2 (10:26→18:06)
--- NOTE | 2019-06-25 15:33 | PDOC PROGRESS REPORT ---
Subjective Progress Note for:: 06/25/19 Subjective:: No adverse events overnight. He got up into the chair today and said he took his oxygen off and he quickly desaturated, but his nurse said it actually took about 3 hours. He also said his nurse told him he was probably going to stay a few more days, but his nurse denied telling him anything of the sort. I told him he would likely go home in the morning. Reason For Visit: ACUTE EXACERBATION OF COPD,ACUTE ON CHRONIC Physical Exam Vital Signs: Temp Pulse Resp BP Pulse Ox 98.2 F 76 22 H 106/70 96 06/25/19 12:00 06/25/19 12:00 06/25/19 12:00 06/25/19 12:00 06/25/19 12:00 Intake & Output 06/24/19 06/25/19 06/26/19 06:59 06:59 06:59 Intake Total 2460 2450 Output Total 1400 2500 Balance 1060 -50 Weight 89.8 kg 94.7 kg General appearance: PRESENT: no acute distress, cooperative, disheveled, obese, other - Looks flushed Respiratory exam: PRESENT: decreased breath sounds, prolonged expiratory phas, symmetrical, unlabored, wheezes. ABSENT: accessory muscle use, chest wall tenderness, rales, retraction, rhonchi, tachypnea Cardiovascular exam: PRESENT: irregular rhythm - Regular rate, +S1, +S2 Pulses: PRESENT: normal carotid pulses Vascular exam: PRESENT: normal capillary refill GI/Abdominal exam: PRESENT: normal bowel sounds, soft. ABSENT: distended, guarding, rebound, tenderness Extremities exam: ABSENT: clubbing, pedal edema Musculoskeletal exam: PRESENT: normal inspection. ABSENT: deformity Neurological exam: PRESENT: alert, awake, oriented to person, oriented to place, oriented to situation Psychiatric exam: PRESENT: appropriate affect, normal mood Skin exam: PRESENT: dry, warm, other - Flushed Results Laboratory Results: 06/25/19 05:24 06/25/19 05:24 06/25/19 06/25/19 05:24 05:24 WBC 14.0 H RBC 4.39 Hgb 15.2 Hct 44.9 MCV 102 H MCH 34.6 H MCHC 33.8 RDW 13.3 Plt Count 199 Sodium 138.5 Potassium 4.5 Chloride 103 Carbon Dioxide 29 Anion Gap 7 BUN 18 Creatinine 0.60 Est GFR ( Amer) > 60 Glucose 121 H Calcium 8.7 Magnesium 2.2 06/22/19 06/22/19 06/23/19 22:07 22:07 01:14 Creatine Kinase 93 93 CK-MB (CK-2) 2.67 Troponin I 0.052 NT-Pro-B Natriuret Pep 341 H 06/23/19 06/23/19 06/23/19 01:14 04:59 04:59 Creatine Kinase 89 CK-MB (CK-2) 2.91 3.33 Troponin I 0.082 0.062 NT-Pro-B Natriuret Pep 06/23/19 06/23/19 11:35 11:35 Creatine Kinase 64 CK-MB (CK-2) 3.49 Troponin I 0.040 NT-Pro-B Natriuret Pep Impressions: Chest X-Ray 06/22/19 00:00 IMPRESSION: No evidence of acute cardiopulmonary disease. Assessment and Plan - Diagnosis (1) Acute and chronic respiratory failure with hypoxia Is this a current diagnosis for this admission?: Yes Plan: Resolved. Stable on his usual level of home oxygen support. (2) COPD exacerbation Is this a current diagnosis for this admission?: Yes Plan: He is improving on steroids and bronchodilators. Anticipate discharge home tomorrow. (3) Paroxysmal atrial fibrillation Is this a current diagnosis for this admission?: Yes Plan: Controlled with his home medications, anticoagulated. - Plan Summary Summary: Patient is admitted to the medical floor where he will receive routine supportive and symptomatic cares. Patient be treated with aggressive pulmonary toilet utilizing nebulized Xopenex, Atrovent and Pulmicort. Will be treated with IV steroids utilizing Solu-Medrol 40 mg every 6 hours x3 doses. He will be continued on supplemental oxygen therapy utilizing BiPAP or nasal cannula to maintain an adequate oxygen saturation level. He will be continued on IV fluids at 167 mL/h over the next 12 hours. CBCs, metabolic profiles and magnesium levels be obtained as appropriate. A TSH and a routine EKG will be obtained. Serial lactic acid levels will be obtained. Will use morphine sulfate 2 to 4 mg IV every 2 hours on as-needed basis for pain control and will use Ativan 1 mg IV every 4 hours on an as-needed basis for anxiety. He will be continued on his usual home medications as appropriate once his medication list has been verified and reconciled. - Time Time Spent with patient: 15-24 minutes
[2019-06-25] MEDS: ATORVASTATIN CALCIUM 20 MG TABLET PO SCH (21:55)
[2019-06-25] MEDS: ZOLPIDEM TARTRATE 5 MG TABLET PO PRN (21:55)
[2019-06-26] MEDS: IPRATROPIUM BROMIDE 0.02% NEB 0.5 MG/2.5 ML AMPUL NEB SCH ×2 (00:56→08:04)
[2019-06-26] MEDS: PANTOPRAZOLE SODIUM 40 MG TABLET.DR PO SCH (05:07)
[2019-06-26 07:23] LABS: ANION GAP 6 (5-19); BLOOD UREA NITROGEN 18 mg/dL (7-20); CALCIUM 9.1 mg/dL (8.4-10.2); CARBON DIOXIDE 34 mmol/L (22-30); CHLORIDE 99 mmol/L (98-107); GLUCOSE 100 mg/dL (75-110); POTASSIUM 4.5 mmol/L (3.6-5.0)
[2019-06-26] MEDS: METOPROLOL TARTRATE 25 MG TABLET PO SCH (10:20)
[2019-06-26] MEDS: CHOLECALCIFEROL (D3) 1,000 UNIT (25 MCG) TABLET PO SCH (10:22)
[2019-06-26] MEDS: APIXABAN 5 MG TABLET PO SCH (10:22)
[2019-06-26] MEDS: DILTIAZEM HCL 120 MG CAP.SR.24H PO SCH (10:22)
[2019-06-26] MEDS: PREDNISONE 20 MG TABLET PO SCH (10:22)
[2019-06-26] MEDS: FLUTICASONE NASAL SPRAY 50 MCG/SPRY 120 SPRAY/16 GM NASL SCH (10:25)
[2019-06-26] MEDS: UMECLIDINIUM BROMIDE 62.5 MCG/DOSE IH SCH (10:26)
[2019-06-26] MEDS: FLUTICASONE/VILANTEROL 200-25 MCG/DOSE IH SCH (10:27)
[2019-06-26] MEDS: DOCUSATE SODIUM 100 MG CAPSULE PO SCH (10:28)
--- NOTE | 2019-06-26 12:05 | PDOC PROGRESS REPORT ---
Subjective Progress Note for:: 06/23/19 Subjective:: no adverse events overnight. Breathing still a bit short at rest. Able to nap in short intervals. Bronchodilators make him jittery. Reason For Visit: ACUTE EXACERBATION OF COPD,ACUTE ON CHRONIC Physical Exam Vital Signs: Temp Pulse Resp BP Pulse Ox 98.5 F 101 H 20 106/70 95 06/26/19 08:14 06/26/19 08:14 06/26/19 08:14 06/26/19 08:14 06/26/19 08:14 Intake & Output 06/25/19 06/26/19 06/27/19 06:59 06:59 06:59 Intake Total 2450 948 Output Total 2500 2450 Balance -50 -1502 Weight 94.7 kg 93.5 kg General appearance: PRESENT: no acute distress, cooperative, disheveled, obese, other - Looks flushed Respiratory exam: PRESENT: decreased breath sounds, prolonged expiratory phas, symmetrical, unlabored. ABSENT: accessory muscle use, chest wall tenderness, rales, retraction, rhonchi, tachypnea, wheezes Cardiovascular exam: PRESENT: irregular rhythm - Regular rate, +S1, +S2 Pulses: PRESENT: normal carotid pulses Vascular exam: PRESENT: normal capillary refill GI/Abdominal exam: PRESENT: normal bowel sounds, soft. ABSENT: distended, guarding, rebound, tenderness Extremities exam: ABSENT: clubbing, pedal edema Musculoskeletal exam: PRESENT: normal inspection. ABSENT: deformity Neurological exam: PRESENT: alert, awake, oriented to person, oriented to place, oriented to situation Psychiatric exam: PRESENT: appropriate affect, normal mood Skin exam: PRESENT: dry, warm, other - Flushed Results Laboratory Results: 06/25/19 05:24 06/26/19 06:05 06/26/19 06:05 Sodium 138.8 Potassium 4.5 Chloride 99 Carbon Dioxide 34 H Anion Gap 6 BUN 18 Creatinine 0.79 Est GFR ( Amer) > 60 Glucose 100 Calcium 9.1 Magnesium 2.2 06/22/19 06/22/19 06/23/19 22:07 22:07 01:14 Creatine Kinase 93 93 CK-MB (CK-2) 2.67 Troponin I 0.052 NT-Pro-B Natriuret Pep 341 H 06/23/19 06/23/19 06/23/19 01:14 04:59 04:59 Creatine Kinase 89 CK-MB (CK-2) 2.91 3.33 Troponin I 0.082 0.062 NT-Pro-B Natriuret Pep 06/23/19 06/23/19 11:35 11:35 Creatine Kinase 64 CK-MB (CK-2) 3.49 Troponin I 0.040 NT-Pro-B Natriuret Pep Impressions: Chest X-Ray 06/22/19 00:00 IMPRESSION: No evidence of acute cardiopulmonary disease. Assessment and Plan - Diagnosis (1) Acute and chronic respiratory failure with hypoxia Is this a current diagnosis for this admission?: Yes Plan: continue supplemental O2 and BiPAP as needed (2) COPD exacerbation Is this a current diagnosis for this admission?: Yes Plan: getting inhaled steroids, will switch to prednisone, bronchodilators prn due to side effects (3) Paroxysmal atrial fibrillation Is this a current diagnosis for this admission?: Yes Plan: continue Cardizem and anticoagulation - Plan Summary Summary: Patient is admitted to the medical floor where he will receive routine supportive and symptomatic cares. Patient be treated with aggressive pulmonary toilet utilizing nebulized Xopenex, Atrovent and Pulmicort. Will be treated with IV steroids utilizing Solu-Medrol 40 mg every 6 hours x3 doses. He will be continued on supplemental oxygen therapy utilizing BiPAP or nasal cannula to maintain an adequate oxygen saturation level. He will be continued on IV fluids at 167 mL/h over the next 12 hours. CBCs, metabolic profiles and magnesium levels be obtained as appropriate. A TSH and a routine EKG will be obtained. S erial lactic acid levels will be obtained. Will use morphine sulfate 2 to 4 mg IV every 2 hours on as-needed basis for pain control and will use Ativan 1 mg IV every 4 hours on an as-needed basis for anxiety. He will be continued on his usual home medications as appropriate once his medication list has been verified and reconciled. - Time Time Spent with patient: 15-24 minutes
[2019-06-26 13:20] VITALS: BP 119/67
--- NOTE | 2019-06-26 15:04 | PDOC DISCHARGE SUMMARY ---
Impression - Admit/DC Date/PCP Admission Date/Primary Care Provider: 06/23/19 00:02 SURENDRA TROTTER MD Discharge Date: 06/26/19 - Discharge Diagnosis (1) Acute and chronic respiratory failure with hypoxia Is this a current diagnosis for this admission?: Yes (2) COPD exacerbation Is this a current diagnosis for this admission?: Yes (3) Paroxysmal atrial fibrillation Is this a current diagnosis for this admission?: Yes - Assessment Summary: Patient is admitted to the medical floor where he will receive routine supportive and symptomatic cares. Patient be treated with aggressive pulmonary toilet utilizing nebulized Xopenex, Atrovent and Pulmicort. Will be treated with IV steroids utilizing Solu-Medrol 40 mg every 6 hours x3 doses. He will be continued on supplemental oxygen therapy utilizing BiPAP or nasal cannula to maintain an adequate oxygen saturation level. He will be continued on IV fluids at 167 mL/h over the next 12 hours. CBCs, metabolic profiles and magnesium levels be obtained as appropriate. A TSH and a routine EKG will be obtained. Serial lactic acid levels will be obtained. Will use morphine sulfate 2 to 4 mg IV every 2 hours on as-needed basis for pain control and will use Ativan 1 mg IV every 4 hours on an as-needed basis for anxiety. He will be continued on his usual home medications as appropriate once his medication list has been verified and reconciled. - Additional Information Resuscitation Status: Full Code Discharge Diet: Cardiac Discharge Activity: Activity As Tolerated, Balance Activity w/Rest, Energy Conservation Referrals: [facility] [Provider Group] Prescriptions: Prednisone [Deltasone 20 mg Tablet] 40 mg PO DAILY #10 tablet Home Medications: Albuterol Sulfate [Albuterol Sulfate Hfa] 2 puff IH QIDP PRN 06/23/19 Apixaban [Eliquis 5 mg Tablet] 5 mg PO Q12 06/23/19 Budesonide/Formoterol Fumarate [Symbicort HFA 160-4.5 mcg Inhaler 6 gm] 2 puff IH BID 06/23/19 Cholecalciferol (Vitamin D3) [Vitamin D3 1000 Unit Tablet] 1,000 unit PO BID 06/23/19 Diltiazem HCl [Diltiazem 24Hr ER] 120 mg PO DAILY 06/23/19 Fluticasone Propionate [Flonase Nasal [place] 50 Mcg/[place] 16 gm] 1 spray NASL BID 06/23/19 Metoprolol Tartrate [Lopressor 25 mg Tablet] 25 mg PO Q12 06/23/19 Rosuvastatin Calcium [Crestor] 10 mg PO QHS 06/23/19 Tiotropium [place] [Spiriva Handihaler 5 Cap/Kit (18 Mcg/Cap)] 1 puff IH DAILY 06/23/19 Zolpidem Tartrate [Ambien] 5 mg PO QHS 06/23/19 Prednisone [Deltasone 20 mg Tablet] 40 mg PO DAILY #10 tablet 06/26/19 History of Present Illiness History of Present Illness: LUCIO BACA JR is a 74 year old male who presented to the emergency room with a 3-day history of dyspnea. He admits gradually worsening constant dyspnea over the last 3 days becoming severe tonight. His dyspnea has been accompanied by wheezing and worsened with exertion. He denies other associated or accompanying signs and symptoms. His dyspnea has not been improved by utilizing his home medications including utilizing his home CPAP on a continuous basis. He admits numerous prior similar episodes related to his COPD. He has not identified any additional aggravating or ameliorating factors for his dyspnea. EMS was called this evening and found him to be in severe respiratory distress, unable to speak and markedly hypoxic. They initiated treatment with BiPAP at 15/5 with 100% oxygen, epinephrine 0.3 subcu and Solu-Medrol 125 mg IV as well as DuoNeb treatments x3 and mag sulfate 2 g IV prior to coming to the emergency room. Upon arrival in the emergency room he had improved to the point where he could speak in 3-4 word sentences and over the course of time he has improved further with continued BiPAP. Hospital Course Hospital Course: He was still short of breath after the first day so we took him off of the inhaled steroids and put him on some prednisone. He began to have an improvement in his symptoms by his second full day in the hospital. We had him back on his usual level of oxygen support that he is on at home. He was able ambulate in the room on oxygen without difficulty. He was able to start clearing some of his respiratory secretions. Given that he was getting Xopenex he said that the bronchodilators made him jittery so I recommend that he use them on an as-needed basis only. He will complete a 5-day course of prednisone at home. His labs and examination were reassuring he was discharged in stable condition. Physical Exam Vital Signs: Temp Pulse Resp BP Pulse Ox 97.9 F 89 16 119/67 94 06/26/19 12:00 06/26/19 12:00 06/26/19 12:00 06/26/19 12:00 06/26/19 12:00 Intake & Output 06/25/19 06/26/19 06/27/19 06:59 06:59 06:59 Intake Total 2450 948 Output Total 2500 2450 Balance -50 -1502 Weight 94.7 kg 93.5 kg General appearance: PRESENT: no acute distress, cooperative, disheveled, obese, other - Looks flushed Respiratory exam: PRESENT: decreased breath sounds, symmetrical, unlabored. ABSENT: accessory muscle use, chest wall tenderness, rales, retraction, rhonchi, tachypnea, wheezes,prolonged expiratory phase Cardiovascular exam: PRESENT: irregular rhythm - Regular rate, +S1, +S2 Pulses: PRESENT: normal carotid pulses Vascular exam: PRESENT: normal capillary refill GI/Abdominal exam: PRESENT: normal bowel sounds, soft. ABSENT: distended, guarding, rebound, tenderness Extremities exam: ABSENT: clubbing, pedal edema Musculoskeletal exam: PRESENT: normal inspection. ABSENT: deformity Neurological exam: PRESENT: alert, awake, oriented to person, oriented to place, oriented to situation Psychiatric exam: PRESENT: appropriate affect, normal mood Skin exam: PRESENT: dry, warm, other - Flushed Results Laboratory Results: WBC 14.0 10^3/uL (4.0-10.5) H 06/25/19 05:24 RBC 4.39 10^6/uL (4.35-5.55) 06/25/19 05:24 Hgb 15.2 g/dL (13.5-17.0) 06/25/19 05:24 Hct 44.9 % (37.9-51.0) 06/25/19 05:24 MCV 102 fl (80-97) H 06/25/19 05:24 MCH 34.6 pg (27.0-33.4) H 06/25/19 05:24 MCHC 33.8 g/dL (32.0-36.0) 06/25/19 05:24 RDW 13.3 % (11.5-14.0) 06/25/19 05:24 Plt Count 199 10^3/uL (150-450) 06/25/19 05:24 Lymph % (Auto) 9.8 % (13-45) L 06/22/19 20:09 [place] % (Auto) 5.6 % (3-13) 06/22/19 20:09 Eos % (Auto) 0.5 % (0-6) 06/22/19 20:09 Baso % (Auto) 0.6 % (0-2) 06/22/19 20:09 Absolute Neuts (auto) 13.5 10^3/uL (1.7-8.2) H 06/22/19 20:09 Absolute Lymphs (auto) 1.6 10^3/uL (0.5-4.7) 06/22/19 20:09 Absolute Monos (auto) 0.9 10^3/uL (0.1-1.4) 06/22/19 20:09 Absolute Eos (auto) 0.1 10^3/uL (0.0-0.6) 06/22/19 20:09 Absolute Basos (auto) 0.1 10^3/uL (0.0-0.2) 06/22/19 20:09 Seg Neutrophils % 83.5 % (42-78) H 06/22/19 20:09 PT 13.0 SEC (11.4-15.4) 06/22/19 20:09 INR 0.98 06/22/19 20:09 APTT 28.3 SEC (23.5-35.8) 06/22/19 20:09 Carbonic Acid 1.08 mmol/L (1.05-1.35) 06/22/19 23:19 HCO3/H2CO3 Ratio 19:1 06/22/19 23:19 ABG pH 7.39 (7.35-7.45) 06/22/19 23:19 ABG pCO2 35.9 mmHg (35-45) 06/22/19 23:19 ABG pO2 128.3 mmHg (80-100) H 06/22/19 23:19 ABG HCO3 21.0 mmol/L (20-24) 06/22/19 23:19 ABG Total CO2 22.2 mmol/L (23-27) L 06/22/19 23:19 ABG O2 Saturation 98.5 % (94-98) H 06/22/19 23:19 ABG Base Excess -3.2 mmol/L 06/22/19 23:19 FiO2 50% 06/22/19 23:19 Sodium 138.8 mmol/L (137-145) 06/26/19 06:05 Potassium 4.5 mmol/L (3.6-5.0) 06/26/19 06:05 Chloride 99 mmol/L (98-107) 06/26/19 06:05 Carbon Dioxide 34 mmol/L (22-30) H 06/26/19 06:05 Anion Gap 6 (5-19) 06/26/19 06:05 BUN 18 mg/dL (7-20) 06/26/19 06:05 Creatinine 0.79 mg/dL (0.52-1.25) 06/26/19 06:05 Est GFR ( Amer) > 60 (>60) 06/26/19 06:05 Est GFR (MDRD) Non-Af > 60 (>60) 06/26/19 06:05 Glucose 100 mg/dL (75-110) 06/26/19 06:05 Lactic Acid 3.8 mmol/L (0.7-2.1) H 06/23/19 09:41 Calcium 9.1 mg/dL (8.4-10.2) 06/26/19 06:05 Magnesium 2.2 mg/dL (1.6-2.3) 06/26/19 06:05 Total Bilirubin 1.2 mg/dL (0.2-1.3) 06/22/19 22:07 Direct Bilirubin 0.3 mg/dL (0.0-0.4) 06/22/19 22:07 Neonat Total Bilirubin Not Reportable 06/22/19 22:07 Neonat Direct Bilirubin Not Reportable 06/22/19 22:07 Neonat Indirect Bili Not Reportable 06/22/19 22:07 AST 26 U/L (17-59) 06/22/19 22:07 ALT 21 U/L (<50) 06/22/19 22:07 Alkaline Phosphatase 69 U/L (38-126) 06/22/19 22:07 Creatine Kinase 64 U/L (55-170) 06/23/19 11:35 CK-MB (CK-2) 3.49 ng/mL (<4.55) 06/23/19 11:35 Troponin I 0.040 ng/mL 06/23/19 11:35 NT-Pro-B Natriuret Pep 341 pg/mL (<125) H 06/22/19 22:07 Total Protein 6.9 g/dL (6.3-8.2) 06/22/19 22:07 Albumin 4.3 g/dL (3.5-5.0) 06/22/19 22:07 TSH 1.10 uIU/mL (0.47-4.68) 06/22/19 22:07 Urine Color YELLOW 06/22/19 23:48 Urine Appearance CLEAR 06/22/19 23:48 Urine pH 5.0 (5.0-9.0) 06/22/19 23:48 Ur Specific [place] 1.020 06/22/19 23:48 Urine Protein NEGATIVE mg/dL (NEGATIVE) 06/22/19 23:48 Urine Glucose (UA) NEGATIVE mg/dL (NEGATIVE) 06/22/19 23:48 Urine Ketones 20 mg/dL (NEGATIVE) H 06/22/19 23:48 Urine Blood SMALL (NEGATIVE) H 06/22/19 23:48 Urine Nitrite NEGATIVE (NEGATIVE) 06/22/19 23:48 Urine Bilirubin NEGATIVE (NEGATIVE) 06/22/19 23:48 Urine Urobilinogen NEGATIVE mg/dL (<2.0) 06/22/19 23:48 Ur Leukocyte Esterase NEGATIVE (NEGATIVE) 06/22/19 23:48 Urine WBC (Auto) 1 /HPF 06/22/19 23:48 Urine RBC (Auto) 5 /HPF 06/22/19 23:48 Urine Mucus (Auto) OCC /LPF 06/22/19 23:48 Urine Ascorbic Acid NEGATIVE (NEGATIVE) 06/22/19 23:48 06/22/19 06/23/19 06/23/19 22:07 01:14 04:59 CK-MB (CK-2) 2.67 2.91 3.33 Troponin I 0.052 0.082 0.062 NT-Pro-B Natriuret Pep 341 H 06/23/19 11:35 CK-MB (CK-2) 3.49 Troponin I 0.040 NT-Pro-B Natriuret Pep Impressions: Chest X-Ray 06/22/19 00:00 IMPRESSION: No evidence of acute cardiopulmonary disease. Plan Time Spent: Greater than 30 Minutes Stroke Is this a Stroke Patient?: No Acute Heart Failure - Is this a Heart Failure Patient?: No
== END 2019-06-26 15:20 | disposition home or self-care (01) | DRG 190 ==
LOC: ER 20:03 → EH 06-23 00:02 → 5 06-23 01:37
PROVIDERS: ADMIT Emergency Medicine; ATTEND Emergency Medicine
PROC: 5A09457 Assistance with Respiratory Ventilation, 24-96 Consecutive Hours, Continuous Positive Airway Pressure (ICD-10-PCS; principal; 2019-06-22)
DX: J44.1 Chronic obstructive pulmonary disease with (acute) exacerbation (principal); J96.21 Acute and chronic respiratory failure with hypoxia; E66.2 Morbid (severe) obesity with alveolar hypoventilation; I48.0 Paroxysmal atrial fibrillation; I10 Essential (primary) hypertension; Z96.643 Presence of artificial hip joint, bilateral; Z60.2 Problems related to living alone; Z79.01 Long term (current) use of anticoagulants; Z87.891 Personal history of nicotine dependence; Z79.899 Other long term (current) drug therapy
CPT/HCPCS: 36415; 71045; 80048; 80053; 81001; 82550; 82553; 82803; 83605; 83735; 83880; 84443; 84484; 85025; 85027; 85610; 85730; 87040; 93005; 93010; 94660; 96374; 96375; 99291; 99292; J1100; J1644; J2920; J3490; J7121; J7512